=== PATIENT | female | born 1955 | race African-American/Black ===

== ENCOUNTER 2016-07-12 19:02 | Inpatient (IN) | payer OTHER ==
[~2016-07-12] VITALS: Ht 167.6 cm; Wt 48.0 kg
[~2016-07-12 19:02] MED LIST: FLAXSEED OIL; METO5SOL2 PO; TAB-TAB PO; TOPR25TA2 PO
[2016-07-12 19:04] VITALS: BP 158/75; PULSE 86; RESP 16; TEMP 98.1; O2SAT 99
[2016-07-12 19:30] VITALS: BP 145/70; PULSE 76; RESP 16; O2SAT 98
[2016-07-12] MEDS ORDERED: SODIUM CHLORID 0.9% 500 ML INJ 500 ML IV ONE (19:30)
[2016-07-12] MEDS ORDERED: ONDANSETRON HCL 4 MG/2 ML VIAL IV ONE (19:30)
--- NOTE | 2016-07-12 19:36 | PD ---
HPI Chief Complaint: Pain: Acute or Chronic Time Seen by Provider: 19:22 Travel History International Travel<30 days: No Contact w/Intl Traveler<30days: No Traveled to known affect area: No History of Present Illness HPI The patient is a 61 year old female who presents to the [facility] emergency department with a history of generalized weakness related to poor by mouth intake and difficulty eating and drinking that is been a problem for weeks , however became much worse over the last 2 days when she developed mucus in the back of her throat. She reports that it is difficult to swallow related to the mucus. She reports that when she does cough it up it is clear in color. She denies having any known fevers associated with it. She is currently on chemotherapy under the care of Dr. Lama related to metastatic breast cancer. The patient reports that she has not been able to take her pain medication today due to difficulty swallowing. She reports having pain in the right side of her neck and right shoulder related to metastasis. She reports that this is chronic since the metastasis in 2014. The patient denies having any vomiting. She denies having any diarrhea. The patient's last bowel movement was earlier today. She denies having any chest pain or chest pressure. She does report having dyspnea on exertion which is chronic since her breast cancer metastasis. The patient denies any recent new neck pain, abdominal pain, urinary symptoms , or new neurologic symptoms. [facility] Past Medical History Narrative Medical The patient's past medical history is significant for mitral valve prolapse, history of hyperlipidemia, history of metastatic breast cancer status post right mastectomy at the end of 2009 followed by chemotherapy which she did not complete because of neuropathy, history of radiation therapy. Subsequent to this, the patient did develop metastatic disease in the right supraclavicular area confirmed by biopsy in March 2015. The patient underwent additional radiation therapy and chemotherapy, however she has continued to have progressive disease. She is followed by Dr. Lama for her oncology care. Arthritis: No Asthma: No Autoimmune Disease: No Blood Disorders: No Anxiety: Yes Depression: No Heart Rhythm Problems: Yes (PROLAPSED MITRAL VALVE/ HEART MURMUR. HEART PALPITATION. ) Cancer: Yes (BREAST) Cardiovascular Problems: Yes (HEART PALPITATION ; MVP) High Cholesterol: Yes Chemotherapy: Yes Chest Pain: Yes (NEWLY ONSET.) Congestive Heart Failure: No COPD: No Cerebrovascular Accident: No Diabetes: No Diminished Hearing: No Endocrine: No GERD: No Glaucoma: No Genitourinary: No Headaches: No Hepatitis: No Hiatal Hernia: No Hypertension: No Immune Disorder: No Kidney Stones: No Medical other: Yes (VERTIGO) Musculoskeletal: Yes Neurologic: Yes Psychiatric: Yes Reproductive: No Respiratory: Yes Migraines: No Myocardial Infarction: No Radiation Therapy: No Renal Failure: No Seizures: No Sleep Apnea: No Thyroid Disease: No Ulcer: No Past Surgical History Narrative Surgical The patient's past surgical history is significant for 2, right breast mastectomy, right lumpectomy, [id number] placement, removal of benign cyst, history of a hysterectomy. Abdominal Surgery: Yes (HEPATIC CYSTECTOMY) AICD: No Appendectomy: No Arteriovenous Shunt: No Cardiac Surgery: No Section: Yes Cholecystectomy: Yes Ear Surgery: No Endocrine Surgery: No Eye Surgery: No Genitourinary Surgery: No Gynecologic Surgery: Yes ( X 2; ELIO, UTERINE ABLATION) Hysterectomy: Yes Insulin Pump: No Joint Replacement: No Mastectomy: Yes Oral Surgery: No Pacemaker: No Thoracic Surgery: Yes (right breast lumpectomy) Other Surgery: Yes Social History Alcohol Use: No Tobacco Use: No Substance Use: No Allergies-Medications (Allergen,Severity, Reaction): Coded Allergies: Adhesives (Unverified Allergy, Severe, RASH, 07/12/16) Celebrex (Verified Allergy, Severe, 07/12/16) gi upset Darvocet-N 100 (Verified Allergy, Severe, 07/12/16) n/v Zantac (Verified Allergy, Severe, itching, 07/12/16) Uncoded Allergies: SELDANE (Allergy, Severe, UNK, 02/21/10) Reported Meds & Prescriptions Reported Meds & Active Scripts Active Reglan (Metoclopramide HCl) 10 Mg/10 Ml Syrp 10 Mg PO Q6HPRN 10 Days Reported [Flaxseed Martin] Multivitamin (Multivitamins) 1 Tab Tab 1 Tab PO DAILY Toprol Xl (Metoprolol Succinate) 25 Mg Tabcr 12.5 Mg PO OTHER DAY Review of Systems General / Constitutional: No: Fever Eyes: No: Visual changes HENT: Positive: Sore Throat, Congestion, No: Headaches Cardiovascular: Positive: Dyspnea on exertion (which she reports is chronic since 2015), No: Chest Pain or Discomfort Respiratory: Positive: Cough, No: Shortness of Breath Gastrointestinal: Positive: Nausea, Loss of Appetite, No: Vomiting, Diarrhea, Abdominal Pain Genitourinary: No: Dysuria Musculoskeletal: Positive: Myalgias, Arthralgias, Pain Skin: No Rash Neurologic: No: Weakness Psychiatric: No: Depression Endocrine: No: Polydipsia Hematologic/Lymphatic: No: Easy Bruising Physical Exam Narrative General: The patient is a well-developed well-nourished female in no acute distress. Head and Neck exam: Head is normocephalic atraumatic. Eyes: Pupils are equal round and reactive to light. Nose: Midline septum with pink mucous membranes Mouth: Dentition unremarkable. Moist mucus membranes. Posterior oropharynx is slightly erythematous. No tonsillar hypertrophy. Uvula midline. Airway patent. Neck: No palpable lymphadenopathy. No nuchal rigidity. No thyromegaly. Cardiovascular: Regular rate and rhythm without murmurs, gallops, or rubs. Lungs: Decreased breath sounds on the right mid to lower lung baez, no rhonchi, no crackles audible. No accessory muscle use. No wheezes. Clear breath sounds in the left side. Abdomen: Soft, without tenderness to palpation in all 4 quadrants of the abdomen. No guarding, rebound, or rigidity. Normal bowel sounds are audible. Extremities: No clubbing or cyanosis. The patient has trace pedal edema. 2+ pulses in all 4 extremities. Back: No spinous process tenderness to palpation. No costovertebral angle tenderness to palpation. Neurologic Exam: Grossly nonfocal. Skin Exam: No rash noted. Intact skin that is warm and dry. Data Data Last Documented VS Vital Signs Date Time Temp Pulse Resp B/P Pulse Ox O2 Delivery O2 Flow Rate FiO2 07/12/16 19:30 76 16 145/70 98 07/12/16 19:04 98.1 Orders Complete Blood Count With Diff (07/12/16 19:26) Comprehensive Metabolic Panel (07/12/16 19:26) Creatine Kinase (Cpk) (07/12/16 19:26) Ckmb (Isoenzyme) Profile (07/12/16 19:26) Troponin I (07/12/16 19:26) B-Type Natriuretic Peptide (07/12/16 19:26) Prothrombin Time / Inr (Pt) (07/12/16 19:26) Act Partial Throm Time (Ptt) (07/12/16 19:26) C-Reactive Protein (Crp) (07/12/16 19:26) Lipase (07/12/16:) Urinalysis - C+S If Indicated (07/12/16 19:26) Magnesium (Mg) (07/12/16 19:26) Chest, Single Ap (07/12/16 19:26) Iv Access Insert/Monitor (07/12/16:26) Ecg Monitoring (07/12/16 19:26) Oximetry (07/12/16 19:26) Ondansetron Inj (Zofran Inj) (07/12/16 19:30) Sodium Chlorid 0.9% 500 Ml Inj (Ns 500 M (07/12/16 19:30) Electrocardiogram (07/12/16 19:26) Morphine Inj (Morphine Inj) (07/12/16 20:00) CKMB (07/12/16 19:40) CKMB% (07/12/16 19:40) Lactic Acid Sepsis Protocol (07/12/16 20:18) Blood Culture (07/12/16 20:18) Cefepime Inj (Maxipime Inj) (07/12/16 20:23) Azithromycin Inj (Zithromax Inj) (07/12/16 20:23) Admit Order (Ed Use Only) (07/12/16 20:57) Labs Laboratory Tests Test 07/12/16 07/12/16 19:40 20:10 White Blood Count 2.7 TH/MM3 Red Blood Count 4.00 MIL/MM3 Hemoglobin 11.6 GM/DL Hematocrit 34.8 % Mean Corpuscular Volume 87.0 FL Mean Corpuscular Hemoglobin 29.1 PG Mean Corpuscular Hemoglobin 33.5 % Concent Red Cell Distribution Width 17.2 % Platelet Count 249 TH/MM3 Mean Platelet Volume 7.5 FL Neutrophils (%) (Auto) 69.7 % Lymphocytes (%) (Auto) 17.5 % Monocytes (%) (Auto) 10.9 % Eosinophils (%) (Auto) 0.8 % Basophils (%) (Auto) 1.1 % Neutrophils # (Auto) 1.9 TH/MM3 Lymphocytes # (Auto) 0.5 TH/MM3 Monocytes # (Auto) 0.3 TH/MM3 Eosinophils # (Auto) 0.0 TH/MM3 Basophils # (Auto) 0.0 TH/MM3 CBC Comment DIFF FINAL Differential Comment Prothrombin Time 11.4 SEC Prothromb Time International 1.0 RATIO Ratio Activated Partial 25.9 SEC Thromboplast Time Sodium Level 136 MEQ/L Potassium Level 3.7 MEQ/L Chloride Level 99 MEQ/L Carbon Dioxide Level 26.1 MEQ/L Anion Gap 11 MEQ/L Blood Urea Nitrogen 12 MG/DL Creatinine 0.75 MG/DL Estimat Glomerular Filtration 95 ML/MIN Rate Random Glucose 76 MG/DL Calcium Level 9.3 MG/DL Magnesium Level 2.0 MG/DL Total Bilirubin 0.4 MG/DL Aspartate Amino Transf 23 U/L (AST/SGOT) Alanine Aminotransferase 18 U/L (ALT/SGPT) Alkaline Phosphatase 82 U/L Total Creatine Kinase 146 U/L Creatine Kinase MB 1.0 NG/ML Troponin I LESS THAN 0.02 NG/ML C-Reactive Protein 0.50 MG/DL B-Type Natriuretic Peptide 20 PG/ML Total Protein 7.7 GM/DL Albumin 3.6 GM/DL Lipase 64 U/L Urine Color LIGHT-YELLOW Urine Turbidity CLEAR Urine pH 6.5 Urine Specific [place] 1.010 Urine Protein NEG mg/dL Urine Glucose (UA) NEG mg/dL Urine Ketones 10 mg/dL Urine Occult Blood NEG Urine Nitrite NEG Urine Bilirubin NEG Urine Urobilinogen LESS THAN 2.0 MG/DL Urine Leukocyte Esterase NEG Urine WBC 1 /hpf Urine Squamous Epithelial 2 /hpf Cells Urine Mucus FEW /lpf Microscopic Urinalysis Comment CULT NOT INDICATED MDM Medical Decision Making Medical Screen Exam Complete: Yes Emergency Medical Condition: Yes Medical Record Reviewed: Yes Differential Diagnosis Dehydration, versus electrolyte abnormality, versus pneumonia, versus sepsis, versus upper respiratory infection, versus postnasal drip from sinusitis Narrative Course During the course of the patients emergency department visit, the patients history, examination, and differential diagnosis were reviewed with the patient. The patient had IV access obtained and blood work sent for analysis. The patient was placed on a teletypesetter monitor with oximetry and blood pressure monitoring. An EKG was done on arrival. The patient's EKG shows a sinus rhythm heart rate of 76, QRS duration of 101 ms, no acute ST segment elevation is noted. T waves are inverted in V1. The patient was initially provided normal saline a 500 mL IV fluid bolus, Zofran 4 mg IV, morphine 4 mg IV. The patients laboratory studies were reviewed and remarkable for white count 2.7, hemoglobin 11.6, platelets 249 with 10.9 monocytes, CMP is unremarkable. CPK is 146, troponin I is less than 0.02, C-reactive protein 0.50, BNP 20, lipase 64. PT 11.4, PTT 25.9 Radiology studies were reviewed and remarkable for a chest x-ray that shows opacification of the lower two thirds of the right chest likely related to a large pleural effusion some degree of right lower lung atelectasis or consolidation also needs to be considered. The patient had a lactic acid added to her blood work along with blood cultures 2. The patient was started on cefepime and azithromycin for antibiotic coverage for possible pneumonia. The patient will be admitted to the hospital for continued evaluation and treatment , consideration of a thoracentesis. The patients results were discussed with the patient, including the plan of care. I explained that further testing and/ or monitoring is indicated based on the patients history, examination, and/ or laboratory findings. Therefore, I recommended admission for additional evaluation. The patient expressed understanding and was agreeable with this plan. The patient was admitted to the hospital in stable condition and sent to a [facility]. Physician Communication Physician Communication The patient's case will be discussed with Dr. Lucero regarding admission. The patient's case was discussed with her. She did agree to admit the patient for further evaluation and treatment at this time. Diagnosis Primary Impression: Pleural effusion on right Additional Impressions: Congestion of upper airway Dehydration Admitting Information Admitting Physician Requests: Observation Milka Renteria MD Jul 12, 2016 19:36
[2016-07-12 19:47] LABS: AUTOMATED NEUTROPHIL # 1.9 TH/MM3 (1.8-7.7); BASOPHIL % 1.1 % (0.0-2.0); EOSINOPHIL % 0.8 % (0.0-4.0); HEMATOCRIT 34.8 % (35.0-46.0); HEMO FLAGS DIFF FINAL; LYMPH % 17.5 % (9.0-44.0); LYMPHOCYTE # 0.5 TH/MM3 (1.0-4.8); MEAN CORPUSCULAR HEMOGLOBIN 29.1 PG (27.0-34.0); MEAN CORPUSCULAR HGB CONC 33.5 % (32.0-36.0); MONO % 10.9 % (0.0-8.0); NEUT % 69.7 % (16.0-70.0); PLATELET COUNT 249 TH/MM3 (150-450); RED CELL DISTRIBUTION WIDTH 17.2 % (11.6-17.2); WHITE BLOOD COUNT 2.7 TH/MM3 (4.0-11.0)
--- NOTE | 2016-07-12 19:50 | RADRPT ---
EXAM DATE/TIME: 07/12/2016 19:37 [facility] COMPARISON: No previous studies available for comparison. INDICATIONS : Cough MEDICAL HISTORY : Carcinoma, breast. SURGICAL HISTORY : Mastectomy, right. ENCOUNTER: Initial ACUITY: 4 - 6 days PAIN SCORE: 0/10 LOCATION: Bilateral chest FINDINGS: There is opacification of the lower two-thirds of the right chest likely related to a large effusion. The left lung is clear. There is a CT compatible [id number] in place from the left subclavian a pproach. The heart size is normal. Clips are seen over the right axillary region. CONCLUSION: Opacification of the lower two-thirds of the right chest likely related to a large effusion. Some de gree of right lower lung atelectasis or consolidation also needs to be considered. Jose E Nolan MD on July 12, 2016 at 19:42 Board Certified Radiologist. This report was verified electronically.
[2016-07-12] MEDS ORDERED: MORPHINE SULFATE 4 MG/ML INJ IV PUSH ONE (20:00)
[2016-07-12 20:01] LABS: APTT (PATIENT) 25.9 SEC (24.3-30.1); PROTHROMBIN TIME - PATIENT 11.4 SEC (9.8-11.6)
[2016-07-12 20:10] LABS: ANION GAP 11 MEQ/L (5-15); AST (GOT) 23 U/L (15-37); BICARBONATE 26.1 MEQ/L (21.0-32.0); BLOOD UREA NITROGEN 12 MG/DL (7-18); CHLORIDE 99 MEQ/L (98-107); GLOMERULAR FILTRATION RATE 95 ML/MIN (>89); POTASSIUM 3.7 MEQ/L (3.5-5.1); SODIUM (NA) 136 MEQ/L (136-145)
[2016-07-12 20:13] LABS: ALKALINE PHOSPHATASE 82 U/L (45-117); ALT (GPT) 18 U/L (10-53); CREATINE KINASE 146 U/L (26-192); TOTAL BILIRUBIN ADULT 0.4 MG/DL (0.2-1.0)
[2016-07-12] MEDS ORDERED: AZITHROMYCIN INJ 500 MG in SODIUM CHLOR 0.9% 250 ML INJ 250 ML IV STA (20:23)
[2016-07-12] MEDS ORDERED: CEFEPIME INJ 2,000 MG in SODIUM CHLORIDE 0.9% INJ 100 ML IV STA (20:23)
[2016-07-12 20:27] LABS: BLOOD, URINE NEG (NEG); COMMENT (UR) CULT NOT INDICATED; CULTURE IF INDICATED CULT NOT INDICATED; GLUCOSE,URINE NEG (NEG); KETONE, URINE 10 mg/dL (NEG); MUCUS URINE FEW /lpf (OCC); NITRITE,URINE NEG (NEG); PH, URINE 6.5 (5.0-8.5); SQUAMOUS EPITHELIAL CELL URINE 2 /hpf (0-5); URINE COLOR LIGHT-YELLOW (YELLW/STRAW)
[2016-07-12] MEDS: SODIUM CHLORIDE 0.9% FLUSH 5 ML FLUSH FLUSH SCH (21:00)
[2016-07-12] MEDS ORDERED: ONDANSETRON HCL 4 MG/2 ML VIAL IVP PRN (21:00)
[2016-07-12] MEDS ORDERED: ACETAMINOPHEN/HYDROcodone 325 MG/5 MG TAB PO PRN (21:00)
[2016-07-12] MEDS ORDERED: ACETAMINOPHEN 325 MG TAB PO PRN (21:00)
[2016-07-12] MEDS ORDERED: BISACODYL 10 MG SUPP PR PRN (21:00)
--- NOTE | 2016-07-12 21:06 | HHI.HP ---
HPI Service [facility] Primary Care Physician Salvador Cook MD Admission Diagnosis Large right pleural effusion, congestion, on chemotherapy Diagnoses: (1) PNA (pneumonia) Diagnosis: Principal (2) Pleural effusion, right Diagnosis: Principal (3) Breast CA Diagnosis: Principal Travel History International Travel<30 Days: No Contact w/Intl Traveler <30 Da: No Traveled to Known Affected Are: No History of Present Illness This is a 61-year-old female with a PMH of Metastatic Breast CA, HTN and Anxiety presented to the ER with complaints of generalized weakness, decreased PO intake and difficulty swallowing. States symptoms have been ongoing for 2- 3wks however have been progressively worse in the last 2-3 days. Denies fever, chills, nausea or vomiting. On arrival, BP 158/75, HR 86, O2 sat 99% on RA, Afebrile. WBC 2.7, at baseline. Chemistry unremarkable. UA negative. CXR with large right pleural effusion and possible underlying consolidation. S/p Rocephin/Zithro in ER. Currently following w/ Dr. Lama. Review of Systems Other ROS: 14 point review of systems otherwise negative. Past Family Social History Past Medical History PMH: Metastatic Breast CA, HTN and Anxiety Past Surgical History PAST SURGICAL HISTORY: , Right Breast Mastectomy, Right Lumpectomy, [id number], Hysterectomy Allergies: Coded Allergies: Adhesives (Unverified Allergy, Severe, RASH, 07/12/16) Celebrex (Verified Allergy, Severe, 07/12/16) gi upset Darvocet-N 100 (Verified Allergy, Severe, 07/12/16) n/v Zantac (Verified Allergy, Severe, itching, 07/12/16) Uncoded Allergies: SELDANE (Allergy, Severe, UNK, 02/21/10) Family History PAST FAMILY HISTORY: Reviewed. No h/o DM or CAD Social History PAST SOCIAL HISTORY: Negative for alcohol, tobacco or drugs. Physical Exam Vital Signs Vital Signs Date Time Temp Pulse Resp B/P Pulse Ox O2 Delivery O2 Flow Rate FiO2 07/12/16 19:30 76 16 145/70 98 07/12/16 19:24 79 15 07/12/16 19:04 98.1 86 16 158/75 99 Physical Exam PE: GENERAL: Middle-aged female in no acute distress. HEENT: PERRLA, EOMI. No scleral icterus or conjunctival pallor. No lid lag or facial droop. CARDIOVASCULAR: Regular rate and rhythm. No obvious murmurs to auscultation. No chest tenderness to palpation. RESPIRATORY: No obvious rhonchi or wheezing. Clear to auscultation. Decreased breath sounds on right. GASTROINTESTINAL: Abdomen soft, non-tender, nondistended. BS normal. MUSCULOSKELETAL: Extremities without clubbing, cyanosis, or edema. No obvious deformities. NEUROLOGICAL: Awake, alert and oriented x4. No focal neurologic deficits. Moving both upper and lower extremities spontaneously. Laboratory Laboratory Tests Test 07/12/16 07/12/16 19:40 20:10 White Blood Count 2.7 Red Blood Count 4.00 Hemoglobin 11.6 Hematocrit 34.8 Mean Corpuscular Volume 87.0 Mean Corpuscular Hemoglobin 29.1 Mean Corpuscular Hemoglobin 33.5 Concent Red Cell Distribution Width 17.2 Platelet Count 249 Mean Platelet Volume 7.5 Neutrophils (%) (Auto) 69.7 Lymphocytes (%) (Auto) 17.5 Monocytes (%) (Auto) 10.9 Eosinophils (%) (Auto) 0.8 Basophils (%) (Auto) 1.1 Neutrophils # (Auto) 1.9 Lymphocytes # (Auto) 0.5 Monocytes # (Auto) 0.3 Eosinophils # (Auto) 0.0 Basophils # (Auto) 0.0 CBC Comment DIFF FINAL Differential Comment Prothrombin Time 11.4 Prothromb Time International 1.0 Ratio Activated Partial 25.9 Thromboplast Time Sodium Level 136 Potassium Level 3.7 Chloride Level 99 Carbon Dioxide Level 26.1 Anion Gap 11 Blood Urea Nitrogen 12 Creatinine 0.75 Estimat Glomerular Filtration 95 Rate Random Glucose 76 Calcium Level 9.3 Magnesium Level 2.0 Total Bilirubin 0.4 Aspartate Amino Transf 23 (AST/SGOT) Alanine Aminotransferase 18 (ALT/SGPT) Alkaline Phosphatase 82 Total Creatine Kinase 146 Creatine Kinase MB 1.0 Troponin I LESS THAN 0.02 C-Reactive Protein 0.50 B-Type Natriuretic Peptide 20 Total Protein 7.7 Albumin 3.6 Lipase 64 Urine Color LIGHT-YELLOW Urine Turbidity CLEAR Urine pH 6.5 Urine Specific [place] 1.010 Urine Protein NEG Urine Glucose (UA) NEG Urine Ketones 10 Urine Occult Blood NEG Urine Nitrite NEG Urine Bilirubin NEG Urine Urobilinogen LESS THAN 2.0 Urine Leukocyte Esterase NEG Urine WBC 1 Urine Squamous Epithelial 2 Cells Urine Mucus FEW Microscopic Urinalysis Comment CULT NOT INDICATED Date/Time Procedure Status Source Growth 07/12/16 20:55 Aerobic Blood Culture Received Blood Peripheral Pending 07/12/16 20:55 Anaerobic Blood Culture Received Blood Peripheral Pending Result Diagram: 07/12/16193907/12/161939 Assessment and Plan Problem List: (1) PNA (pneumonia) ICD Code: J18.9 Status: Acute (2) Pleural effusion, right ICD Code: J90 Status: Acute (3) Breast CA ICD Code: C50.919 Status: Acute Assessment and Plan A/P: 1. PNA: CXR w/ large right effusion and possible underlying consolidation, images reviewed by me. WBC 13, afebrile. S/p Rocephin/Zithro in ER. Will continue w/ IV Abx for possible PNA in light of immunocompromised state. DuoNeb prn. 2. Right Pleural Effusion: CXR w/ large right-sided pleural effusion, images reviewed by me. No respiratory distress, O2 sat 98-100%. Will consult IR for Thoracentesis. ? malignant effusion, check cytology, gram stain, cell count, LDH.. 3. Breast CA: Metastatic. S/p Mastectomy, Chemo/Radiation w/ recurrence and metastatic disease in 2014. Follows w/ Dr. Lama. Will consult for further recommendations. 4. DVT Prophylaxis: SCD/Teds. 5. Social work for d/c planning as needed. 6. Case discussed w/ ER physician at length. Roxi Lucero MD Jul 12, 2016 21:06
[2016-07-12] MEDS ORDERED: METO25TA6 PO (23:57)
[2016-07-12] MEDS ORDERED: MORP1TAB25 PO (23:57)
[2016-07-12] MEDS ORDERED: ASPI81CH CHEW (23:57)
[2016-07-13] VITALS (13 sets, daily range): BP systolic 102–150; BP diastolic 55–77; PULSE 72–90; RESP 16–22; TEMP 96.6–98.6; O2SAT 94–100
[2016-07-13] MEDS: HYDROmorphone HCL PF 1 MG/ML VIAL IV PRN ×4 (00:30→20:21)
[2016-07-13 05:15] LABS: BASOPHIL % 0.9 % (0.0-2.0); EOSINOPHIL % 0.7 % (0.0-4.0); HEMO FLAGS DIFF FINAL; LYMPH % 19.4 % (9.0-44.0); LYMPHOCYTE # 0.6 TH/MM3 (1.0-4.8); MEAN CELL VOLUME 88.7 FL (80.0-100.0); MEAN CORPUSCULAR HEMOGLOBIN 29.2 PG (27.0-34.0); MEAN CORPUSCULAR HGB CONC 32.9 % (32.0-36.0); MONO % 12.2 % (0.0-8.0); NEUT % 66.8 % (16.0-70.0); PLATELET COUNT 231 TH/MM3 (150-450); RED CELL DISTRIBUTION WIDTH 16.6 % (11.6-17.2)
[2016-07-13 05:55] LABS: ALKALINE PHOSPHATASE 76 U/L (45-117); ALT (GPT) 17 U/L (10-53); ANION GAP 11 MEQ/L (5-15); AST (GOT) 21 U/L (15-37); BICARBONATE 24.7 MEQ/L (21.0-32.0); BLOOD UREA NITROGEN 13 MG/DL (7-18); CHLORIDE 102 MEQ/L (98-107); GLOMERULAR FILTRATION RATE 110 ML/MIN (>89); LDH SERUM 185 U/L (84-246); POTASSIUM 3.9 MEQ/L (3.5-5.1); SODIUM (NA) 138 MEQ/L (136-145); TOTAL BILIRUBIN ADULT 0.4 MG/DL (0.2-1.0)
[2016-07-13] MEDS ORDERED: DEXTROSE 50% IN WATER 50 ML VIAL(D50) IV PUSH PRN (06:15)
[2016-07-13] MEDS ORDERED: GLUCAGON 1 MG/ML VIAL OTHER PRN (06:15)
[2016-07-13] MEDS ORDERED: DEXTROSE 50% IN WATER 50 ML VIAL(D50) IV PUSH ONE (06:15)
[2016-07-13] MEDS: SODIUM CHLORIDE 0.9% FLUSH 5 ML FLUSH FLUSH SCH ×2 (09:45→20:09)
[2016-07-13] MEDS: guaiFENesin SOLUTION 200 MG/10 ML CUP PO PRN (11:34)
--- NOTE | 2016-07-13 12:05 | HHI.PR ---
Subjective Remarks Follow-up right pleural effusion 07/13/16-patient seen and examined, complained of some shortness of breath, nonproductive cough. Currently afebrile. Objective Vitals Vital Signs Date Time Temp Pulse Resp B/P Pulse Ox O2 Delivery O2 Flow Rate FiO2 07/13/16 10:55 18 07/13/16 07:32 98.6 82 22 144/74 96 07/13/16 05:40 97.5 83 20 135/67 97 07/13/16 00:42 98.6 78 18 119/67 98 07/12/16 19:30 76 16 145/70 98 07/12/16 19:24 79 15 07/12/16 19:04 98.1 86 16 158/75 99 Result Diagram: 07/13/[id number] Imaging Last Impressions Chest X-Ray 07/12/161925 Signed Impressions: Service Date/Time: Tuesday, July 12, 2016 19:37 - CONCLUSION: Opacification of the lower two-thirds of the right chest likely related to a large effusion. Some degree of right lower lung atelectasis or consolidation also needs to be considered. Jose E Nolan MD Objective Remarks GENERAL: NAD SKIN: Warm and dry. HEAD: Normocephalic. EYES: No scleral icterus. No injection or drainage. NECK: Supple, trachea midline. No JVD or lymphadenopathy. CARDIOVASCULAR: Regular rate and rhythm without murmurs, gallops, or rubs. RESPIRATORY: Breath sounds decreased R>L . No accessory muscle use. GASTROINTESTINAL: Abdomen soft, non-tender, nondistended. MUSCULOSKELETAL: No cyanosis, or edema. BACK: Nontender without obvious deformity. No CVA tenderness. A/P Problem List: (1) PNA (pneumonia) ICD Code: J18.9 Status: Acute (2) Pleural effusion, right ICD Code: J90 Status: Acute (3) Breast CA ICD Code: C50.919 Status: Acute Assessment and Plan 61-year-old female with 1. PNA: CXR w/ large right effusion and possible underlying consolidation. S/ p Rocephin/Zithro in ER. continue w/ IV Abx for possible PNA in light of immunocompromised state. DuoNeb prn. Sputum and blood culture pending 2. Right Pleural Effusion: CXR w/ large right-sided pleural effusion. IR assaulted for diagnostic and therapeutic ultrasound-guided thoracentesis. 3. Breast CA: Metastatic. S/p Mastectomy, Chemo/Radiation w/ recurrence and metastatic disease in 2015. Follows w/ Dr. Lama who has been consulted. 4. Hypoglycemia: Treatment per hypoglycemia protocol 5. Hypertension: Currently normotensive, resume Lopressor 12.5 mg daily on with holding parameters. Vasotec when necessary 6. DVT Prophylaxis: SCD/Teds. Sukhwinder Morris MD Jul 13, 2016 12:04
[2016-07-13] MEDS ORDERED: PILL SPLITTER OTHER PRN (12:15)
[2016-07-13] MEDS ORDERED: ENALAPRILAT 1.25 MG/ML VIAL IV PUSH PRN (12:15)
--- NOTE | 2016-07-13 17:15 | RADRPT ---
EXAM DATE/TIME: 07/13/2016 17:01 [facility] COMPARISON: No previous studies available for comparison. INDICATIONS : Thoracentesis right side. MEDICAL HISTORY : Cancer right breast SURGICAL HISTORY : Right mastectomy ENCOUNTER: Initial ACUITY: 1 day PAIN SCORE: 7/10 LOCATION: Right upper chest FINDINGS: Following thoracentesis there is a pneumothorax on the right probably from noncompliant lung. The left lung is clear. [id number] is in good position. Heart and pulmonary vascularity are normal. CONCLUSION: Pneumothorax probably from noncompliant lung. Juan Diego Shipman MD FACR on July 13, 2016 at 17:10 Board Certified Radiologist. This report was verified electronically.
--- NOTE | 2016-07-13 17:16 | HHI.PR ---
Addendum to Inpatient Note Addendum Reason: Additional Documentation Additional Information Case discussed with Radiology as of right now and patient is s/p Right lung thoracentesis However a Right Chest tube has to be placed. Will change admission to inpatient and transfer patient to Sukhwinder Morris MD Jul 13, 2016 17:16
--- NOTE | 2016-07-13 17:18 | EKG ---
Date Performed: 07/12/2016 Time Performed: 19:38:50 PTAGE: 61 years EKG: Sinus rhythm POSSIBLE RIGHT VENTRICULAR CONDUCTION DELAY Compared to prior tracing no significant change BORDERLI NE ECG PREVIOUS TRACING : 05/13/2010 12.54 DOCTOR: Sher Iqbal Interpretating Date/Time 07/13/2016 17:16:46
--- NOTE | 2016-07-13 17:30 | RADRPT ---
EXAM DATE/TIME: 07/13/2016 15:45 [facility] COMPARISON: No previous studies available for comparison. INDICATIONS : Pleural effusion. MEDICAL HISTORY : Hypercholesterolemia. Pleural effusion. Right breast cancer. Mitral valve prolaspe. Heart murmur. H eart palpation. Vertigo. SURGICAL HISTORY : section. Hysterectomy. Cholecystectomy. Right breast lumpectomy. Hepatic cystectomy. Uterine ablation. ENCOUNTER: Initial ACUITY: 1 day PAIN SCORE: 8/10 LOCATION: Right chest FLUID: Total volume of 1600 cc of odell fluid was removed. Fluid was sent to lab for ordered studies. TECHNIQUE: 1. Ultrasound guidance for thoracentesis. 2. Thoracentesis. The risks, benefits, and alternatives to ultrasound guided thoracentesis were explained to the patien t in lay simple terms, including the risk of bleeding and infection. Written and verbal informed con sent was obtained. Appropriate area for thoracentesis was marked under ultrasound guidance with the patient in the uprig ht position. Overlying skin was prepped and draped in the usual sterile fashion and with local anest hetic, a dermatotomy was made with an 11 blade scalpel. A 6 [place] thoracentesis catheter was placed in the pleural space and fluid was removed. Catheter was then removed and a sterile dressing applie d. There were no immediate complications. The patient tolerated the procedure well and the left the ultrasound suite in stable condition. Chest radiograph is to be obtained. CONCLUSION: Uncomplicated ultrasound guided thoracentesis. Juan Diego Shipman MD FACR on July 13, 2016 at 17:28 Board Certified Radiologist. This report was verified electronically.
[2016-07-13] MEDS ORDERED: fentaNYL CITRATE 250 MCG/5 ML AMP ONE (17:54)
--- NOTE | 2016-07-13 18:41 | PD.RAD ---
Post Procedure Progress Note Pre Procedure Diagnosis: (1) Pleural effusion on right (2) Pneumothorax Post Procedure Diagnosis: (1) Pleural effusion on right (2) Pneumothorax Procedure Date: Jul 13, 2016 Supervising Radiologist: Orlando Shipman Anesthesia: Local, Analgesia Plan of Activity Patient to Unit: Nursing Unit Patient Condition: Fair Additional Comments: Right chest tube placed without difficulty Tube in good position with reinflation of the right lung See PACS Report for procedural detail/treatment Orlando Shipman MD Jul 13, 2016 18:41
[2016-07-13 18:44] LABS: TOTAL PROTEIN,PLEURAL FLUID 4.8 GM/DL
[2016-07-13 19:17] LABS: PLEURAL FLUID LYMPHS 74 %
[2016-07-13] MEDS: AZITHROMYCIN INJ 500 MG in SODIUM CHLOR 0.9% 250 ML INJ 250 ML IV SCH (20:21)
[2016-07-13] MEDS: cefTRIAXone INJ 1,000 MG in SODIUM CHLORIDE 0.9% INJ 100 ML IV SCH (20:23)
--- NOTE | 2016-07-13 20:30 | RADRPT ---
EXAM DATE/TIME: 07/13/2016 19:01 [facility] COMPARISON: CHEST EXPIRATION ONLY, July 13, 2016, 17:01. INDICATIONS : Right chest tube placement. MEDICAL HISTORY : cancer right breast SURGICAL HISTORY : rt mastectomy ENCOUNTER: Initial ACUITY: 1 day PAIN SCORE: 8/10 LOCATION: Right upper chest FINDINGS: Examination reveals placement of right chest tube. This examination was performed before suction. The re is airspace disease in the right lung base. Small right effusion. Left lung is clear. Uazeie-m-Cvw t tip in superior vena cava. Surgical clips in right axillary region. CONCLUSION: 1. Placement of right chest tube with chest radiograph performed before suctioned applied. Right pneu mothorax similar in size to earlier exam. Abelino Nova MD on July 13, 2016 at 20:24 Board Certified Radiologist. This report was verified electronically.
[2016-07-13] MEDS: DEXTROSE 5% IN WATE 1000ML INJ 1,000 ML IV SCH (22:28)
[2016-07-13] MEDS ORDERED: HYDROmorphone HCL PF 1 MG/ML VIAL IV PUSH ONE (22:30)
[2016-07-14] VITALS (7 sets, daily range): BP systolic 110–131; BP diastolic 63–76; PULSE 77–90; RESP 16–22; TEMP 97.1–98.8; O2SAT 100
[2016-07-14] MEDS: HYDROmorphone HCL PF 1 MG/ML VIAL IV PRN ×4 (00:56→22:05)
[2016-07-14] MEDS: guaiFENesin SOLUTION 200 MG/10 ML CUP PO PRN (01:08)
[2016-07-14] MEDS: RESP: ALBUTEROL 2.5 MG/IPRATROPIUM 0.5 MG NEB (PRN) NEB (05:11)
--- NOTE | 2016-07-14 06:33 | RADRPT ---
EXAM DATE/TIME: 07/14/2016 04:53 [facility] COMPARISON: CHEST EXPIRATION ONLY, July 13, 2016, 19:01. INDICATIONS : Short of breath, evaluate right side pneumothorax and chest tube MEDICAL HISTORY : Carcinoma, breast. SURGICAL HISTORY : Mastectomy, right. thoracentesis right side ENCOUNTER: Subsequent ACUITY: 2 days PAIN SCORE: 8/10 LOCATION: Right chest FINDINGS: The right chest remains in place. There has been improvement with the right pneumothorax. There is no w 6 mm of separation at the apex. This is improved compared to the prior examination. The left lung r emains clear and well-aerated. There is a persistent infiltrate in the right lung base. The heart siz e is stable. CONCLUSION: Improving small right apical pneumothorax with 6 mm of separation on today's exam. Eugene Stinson MD on July 14, 2016 at 6:30 Board Certified Radiologist. This report was verified electronically.
[2016-07-14] MEDS: DEXTROSE 5% IN WATE 1000ML INJ 1,000 ML IV SCH ×2 (08:15→18:15)
[2016-07-14] MEDS: SODIUM CHLORIDE 0.9% FLUSH 5 ML FLUSH FLUSH SCH ×2 (09:00→20:04)
[2016-07-14] MEDS: METOPROLOL SUCCINATE 25 MG EXTENDED RELEASE TAB PO SCH (09:37)
--- NOTE | 2016-07-14 09:47 | HHI.PR ---
Subjective Remarks Follow-up right pleural effusion 07/13/16-patient seen and examined, complained of some shortness of breath, nonproductive cough. Currently afebrile. 07/14/16-patient seen and examined; she had Rocephin tissues of the right lung don't yesterday however complicated by right lung pneumothorax for which chest tube was placed. Currently complain of increased mucus production along with flame. Positive for shortness of breath however denies any chest pain. currently afebrile Objective Vitals Vital Signs Date Time Temp Pulse Resp B/P Pulse Ox O2 Delivery O2 Flow Rate FiO2 07/14/16 08:00 97.1 78 20 126/76 100 07/14/16 06:30 98.2 84 18 123/73 100 07/14/16 00:00 98.2 86 16 114/67 100 07/13/16 21:55 97.2 83 16 118/71 100 07/13/16 20:25 97.2 73 16 102/55 100 07/13/16 19:55 96.7 78 16 120/69 100 07/13/16 19:30 97.4 81 16 123/73 100 07/13/16 17:56 98.2 81 20 117/58 100 07/13/16 17:05 72 18 125/77 96 07/13/16 16:50 72 18 133/66 96 07/13/16 16:17 98.6 74 16 150/74 99 07/13/16 15:54 96.6 90 18 149/68 94 07/13/16 12:09 98.4 75 20 131/68 100 07/13/16 10:55 18 I/O 07/13/16 07/13/16 07/13/16 07/14/16 07/14/16 07/14/16 07:00 15:00 23:00 07:00 15:00 23:00 Intake Total 900 ml Output Total 220 ml 100 ml Balance -220 ml 800 ml Intake IV Total 900 ml Output Chest Tube Drainage Total 220 ml 100 ml # Voids 4 # Bowel Movements 1 Result Diagram: 07/13/16 0455 07/13/16 0455 Imaging Last Impressions Chest X-Ray 07/14/16 0000 Signed Impressions: Service Date/Time: Thursday, July 14, 2016 04:53 - CONCLUSION: Improving small right apical pneumothorax with 6 mm of separation on today's exam. Eugene Stinson MD Thoracentesis Ultrasound 07/13/16 0000 Signed Impressions: Service Date/Time: Wednesday, July 13, 2016 15:45 - CONCLUSION: Uncomplicated ultrasound guided thoracentesis. Juan Diego Shipman MD FACR Objective Remarks GENERAL: NAD SKIN: Warm and dry. HEAD: Normocephalic. EYES: No scleral icterus. No injection or drainage. NECK: Supple, trachea midline. No JVD or lymphadenopathy. CARDIOVASCULAR: Regular rate and rhythm without murmurs, gallops, or rubs. RESPIRATORY: Breath sounds decreased R>L . No accessory muscle use. Right Chest tube in place GASTROINTESTINAL: Abdomen soft, non-tender, nondistended. MUSCULOSKELETAL: No cyanosis, or edema. BACK: Nontender without obvious deformity. No CVA tenderness. Procedures Ultrasound-guided thoracentesis 07/13/16 Right chest tube placed 01/09/17 A/P Problem List: (1) PNA (pneumonia) ICD Code: J18.9 Status: Acute (2) Pleural effusion, right ICD Code: J90 Status: Acute (3) Breast CA ICD Code: C50.919 Status: Acute (4) Pneumothorax, right ICD Code: J93.9 Status: Acute Assessment and Plan 61-year-old female with 1. PNA: CXR w/ large right effusion and possible underlying consolidation. S/ p Rocephin/Zithro in ER. continue w/ IV Abx for possible PNA in light of immunocompromised state. DuoNeb prn. Sputum and blood culture pending 2. Right Pleural Effusion: CXR w/ large right-sided pleural effusion. Status post diagnostic and therapeutic ultrasound-guided thoracentesis 07/13/16 pending pleural culture report 3. Right lung pneumothorax: Post complication from right lung thoracentesis, status post right chest tube placed 07/13/16. Start DuoNeb scheduled and when necessary. Maintain oxygen saturation above 92%. Incentive spirometry at the bedside. Management by interventional radiology 4. Breast CA: Metastatic. S/p Mastectomy, Chemo/Radiation w/ recurrence and metastatic disease in 2014. Follows w/ Dr. Lama who has been consulted. 5. Hypoglycemia: Treatment per hypoglycemia protocol 6. Hypertension: Currently normotensive, on Lopressor 12.5 mg daily with holding parameters. Vasotec when necessary 7. DVT Prophylaxis: SCD/Teds. Sukhwinder Morris MD Jul 14, 2016 09:47
[2016-07-14] MEDS: RESP: ALBUTEROL 2.5 MG/IPRATROPIUM 0.5 MG NEB (SCH) NEB ×2 (11:05→20:54)
[2016-07-14 11:48] LABS: BICARBONATE 31.3 MEQ/L (21.0-32.0); POTASSIUM 3.7 MEQ/L (3.5-5.1)
[2016-07-14] MEDS: AZITHROMYCIN INJ 500 MG in SODIUM CHLOR 0.9% 250 ML INJ 250 ML IV SCH (20:07)
[2016-07-14] MEDS: cefTRIAXone INJ 1,000 MG in SODIUM CHLORIDE 0.9% INJ 100 ML IV SCH (20:07)
--- NOTE | 2016-07-14 21:37 | MB ---
cc: JOSUE FITZGERALD M.D. DATE OF CONSULTATION: 07/14/2016 REASON FOR CONSULTATION: 1. Stage IV breast cancer. 2. Right pleural effusion. 3. Inability to swallow due to phlegm in the back of the throat. PATIENT PROFILE: The patient is a 61 year-old female who is . She is a retired registered nurse. She has never smoked. She does not drink. She was born in [place], [place]. She has one son and one daughter. She lives in her own home. HISTORY OF PRESENT ILLNESS The patient's history dates back to 2009 when she was found to have a carcinoma of the right breast with four positive lymph nodes, pathologic stage T1b N1 M0. She underwent a right lumpectomy and sentinel lymph node biopsy and a subsequent right mastectomy. She received chemotherapy with Cytoxan, Adriamycin followed by Taxol. 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 She received postoperative radiation. In February of 2015, she was found to have local recurrence with involvement of the neck, supraclavicular area, sternum, right first rib. The tumor was positive for ER and MT receptors. She has had various hormonal therapies. She recently has had progressive disease after receiving weekly Taxol and the plan was to treat her with gemcitabine. Her current admission was prompted by increasing phlegm in the back of the throat to the point that she was unable to take pain medications and barely able to eat or drink. She went to the emergency room and was found to have a large right pleural effusion. An ultrasound guided thoracentesis was performed on 07/13/2016, removing 1600 cc of fluid, pathology is pending. She has a small pneumothorax and now has a chest tube. In spite of having re-expansion of the lung, she still cannot swallow. She has extensive mucous in the back of the throat. She tells me she cannot eat, drink or swallow pills. PAST SURGICAL HISTORY 1. ELIO BSO and lysis of adhesions 09/26/2004. 2. Laparoscopic excision of liver cyst and laparoscopic cholecystectomy 03/07/2009. 3. 11/13/2009 right breast lumpectomy and axillary lymph node biopsy. 4. 02/21/2010, right total mastectomy. 5. Bprpiy-D-Cktv placement. PAST MEDICAL HISTORY 1. Stage IV breast cancer with metastatic disease to bone, lymph nodes, soft tissue, skin, pleura, status post multiple hormonal therapy and chemotherapy. 2. Mitral valve replacement. 3. Elevated cholesterol. MEDICATIONS PRIOR TO ADMISSION 1. Aspirin 81 mg a day. 2. Metoprolol. 3. Morphine sulfate 30 mg p.o. q.8 hours. ALLERGIES DARVOCET SELDANE ZANTAC FAMILY HISTORY Noncontributory. REVIEW OF SYSTEMS Notable for weakness, diminished appetite, shortness of breath, difficulty swallowing, phlegm in back of throat, pain in the right shoulder, left shoulder, right lower neck, and generalized decline in performance status. PHYSICAL EXAMINATION: RR 20 Pulse 90 Afebrile. Physical examination reveals a chronically ill-appearing female. She is frail. She has a right chest tube. Head is normocephalic. Sclerae and conjunctiva normal. Oropharynx is unremarkable. There is adenopathy in the right supraclavicular area. The right neck, back and chest wall area is infiltrated by tumor. There are multiple nodules over the right anterior chest wall. There is nodularity over the sternum. Heart: Regular rhythm. Lungs: Left lung clear. Right lung diminished sounds at the base. Abdomen: Without hepatosplenomegaly. Extremities: Trace edema. Musculoskeletal: Muscle wasting. Neurologic: Right arm weakness. ASSESSMENT: The patient is a 61 year-old female with stage IV breast cancer involving chest wall, neck, skin, bone, lymph nodes, and pleura. She has received extensive chemotherapy, hormonal therapy, and radiation. She now has a symptomatic right pleural effusion with shortness of breath. The major problem oddly enough is not the shortness of breath and the pleural effusion but the phlegm in the back of the throat which prevents her from eating, drinking and taking pain medication. RECOMMENDATIONS: 1. I would recommend the patient have a pleurodesis. I believe the fluid will re-accumulate. I feel it is highly unlikely that I will be able to control her breast cancer and would anticipate that within several weeks the right pleural effusion will reoccur unless she undergoes a successful pleurodesis. 2. She is not able to swallow and I will ask ENT to do an exam as it is not clear to me why she is having difficulty swallowing. MD ABBY Luna/ALEXEY /9:02 PM /9:20 PM MTDLionel
[2016-07-15] VITALS (7 sets, daily range): BP systolic 103–126; BP diastolic 56–84; PULSE 88–104; RESP 16–18; TEMP 97.4–98.8; O2SAT 96–100
[2016-07-15] MEDS: DEXTROSE 5% IN WATE 1000ML INJ 1,000 ML IV SCH ×3 (01:10→20:05)
[2016-07-15] MEDS: HYDROmorphone HCL PF 1 MG/ML VIAL IV PRN ×4 (02:22→20:05)
[2016-07-15] MEDS: RESP: ALBUTEROL 2.5 MG/IPRATROPIUM 0.5 MG NEB (PRN) NEB (02:51)
[2016-07-15 06:45] LABS: AUTOMATED NEUTROPHIL # 2.7 TH/MM3 (1.8-7.7); BASOPHIL % 1.1 % (0.0-2.0); EOSINOPHIL # 0.1 TH/MM3 (0-0.4); EOSINOPHIL % 3.2 % (0.0-4.0); HEMATOCRIT 32.8 % (35.0-46.0); HEMO FLAGS DIFF FINAL; LYMPH % 9.9 % (9.0-44.0); LYMPHOCYTE # 0.4 TH/MM3 (1.0-4.8); MEAN CELL VOLUME 88.4 FL (80.0-100.0); MEAN CORPUSCULAR HEMOGLOBIN 28.8 PG (27.0-34.0); MEAN CORPUSCULAR HGB CONC 32.5 % (32.0-36.0); MONO % 10.6 % (0.0-8.0); NEUT % 75.2 % (16.0-70.0); PLATELET COUNT 205 TH/MM3 (150-450); RED BLOOD COUNT 3.71 MIL/MM3 (4.00-5.30); RED CELL DISTRIBUTION WIDTH 16.6 % (11.6-17.2); WHITE BLOOD COUNT 3.6 TH/MM3 (4.0-11.0)
[2016-07-15 07:10] LABS: BICARBONATE 28.6 MEQ/L (21.0-32.0)
[2016-07-15] MEDS: RESP: ALBUTEROL 2.5 MG/IPRATROPIUM 0.5 MG NEB (SCH) NEB ×3 (07:21→20:10)
[2016-07-15] MEDS ORDERED: POTASSIUM CHLORIDE 10 MEQ CONTROLLED RELEASE TAB PO ONE (08:00)
--- NOTE | 2016-07-15 08:23 | HHI.PR ---
Subjective Remarks Patient seen in follow up for right pleural effusion, advanced breast cancer, and odynophagia. Patient reports that her breathing is unchanged. She is still having issues with inability to swallow most things due to phlegm. She reports that it comes right back up. Objective Vitals Vital Signs Date Time Temp Pulse Resp B/P Pulse Ox O2 Delivery O2 Flow Rate FiO2 07/15/16 07:22 100 Nasal Cannula 2.00 07/15/16 04:37 98.8 96 16 109/69 100 07/15/16 00:00 98.4 90 16 112/56 96 07/14/16 20:55 100 Nasal Cannula 2.00 07/14/16 20:00 98.8 77 18 121/65 100 07/14/16 16:00 98.8 78 18 110/63 100 07/14/16 11:45 97.1 90 22 131/65 100 I/O 07/14/16 07/14/16 07/14/16 07/15/16 07/15/16 07/15/16 07:00 15:00 23:00 07:00 15:00 23:00 Intake Total 900 ml 120 ml 1202 ml 1477 ml Output Total 100 ml 300 ml 1300 ml 700 ml Balance 800 ml -180 ml -98 ml 777 ml Intake Oral 120 ml 480 ml 0 ml IV Total 900 ml 722 ml 1477 ml Output Urine Total 300 ml 1300 ml 700 ml Chest Tube Drainage Total 100 ml # Voids 4 1 # Bowel Movements 0 0 Result Diagram: 07/15/16 0435 07/15/16 0435 Imaging Last Impressions Chest X-Ray 07/14/16 0000 Signed Impressions: Service Date/Time: Thursday, July 14, 2016 04:53 - CONCLUSION: Improving small right apical pneumothorax with 6 mm of separation on today's exam. Eugene Stinson MD Thoracentesis Ultrasound 07/13/16 0000 Signed Impressions: Service Date/Time: Wednesday, July 13, 2016 15:45 - CONCLUSION: Uncomplicated ultrasound guided thoracentesis. Juan Diego Shipman MD FACR Objective Remarks GENERAL: Patient is in no acute distress. CARDIOVASCULAR: Normal rate and regular rhythm without murmurs, gallops, or rubs. RESPIRATORY: Good respiratory efforts. Right mid to lower lung baez with diminished breath sounds. Rest of lung baez clear to auscultation. No wheezing. Right chest tube in place, dressing intact but there appears to be an air leak. GASTROINTESTINAL: Abdomen soft, non-tender, non-distended. Normal active bowel sounds MUSCULOSKELETAL: Extremities without cyanosis, or edema. NEURO: Alert & Oriented x4 to person, place, time, situation. Moves all ext x4 PSYCH: Appropriate mood and affect. Procedures Ultrasound-guided thoracentesis 07/13/16 Right chest tube placed 01/09/17 A/P Problem List: (1) PNA (pneumonia) ICD Code: J18.9 Status: Acute (2) Pleural effusion, right ICD Code: J90 Status: Acute (3) Breast CA ICD Code: C50.919 Status: Acute (4) Pneumothorax, right ICD Code: J93.9 Status: Acute Assessment and Plan 61 Y/O female with: Right large pleural effusion: Patient is status post ultrasound-guided thoracentesis on 07/13/16. Fluid culture is pending. Agree with Oncologist Dr. Lama who recommends Pleurodesis as fluid would likely recur. IR consulted for this. Patient is scheduled for today. Right lung pneumothorax after thoracentesis: Probably due to noncompliant lungs. Chest tube placed on 07/13/16. Incentive spirometer. Interventional radiology following. Possible pneumonia: Cannot rule out consolidation in the right lower lobe. Continue Rocephin and azithromycin for possible pneumonia given her immunocompromise state. Sputum and blood cultures are pending. Dysphagia: Patient reports inability to eat, drink, swallow pills due to pain and phlegm in her throat. ENT has been consulted. Breast CA, Metastatic and advanced. S/p Mastectomy, Chemo and radiation w/ recurrence and metastatic disease in 2014. Appreciate Dr. Lama following. Hypokalemia: Replace and monitor. Hypoglycemia: Treatment per hypoglycemia protocol Hypertension: Currently normotensive, on Lopressor 12.5 mg daily with holding parameters. Vasotec when necessary DVT Prophylaxis: SCD/Teds. Sakina Travis MD Jul 15, 2016 08:23
[2016-07-15] MEDS: METOPROLOL SUCCINATE 25 MG EXTENDED RELEASE TAB PO SCH (09:00)
[2016-07-15] MEDS: SODIUM CHLORIDE 0.9% FLUSH 5 ML FLUSH FLUSH SCH ×2 (09:00→20:17)
[2016-07-15] MEDS: POTASSIUM CHLOR 20 MEQ PREMIX 100 ML IV SCH ×2 (10:30→13:39)
--- NOTE | 2016-07-15 11:16 | RADRPT ---
EXAM DATE/TIME: 07/15/2016 10:05 [facility] COMPARISON: CHEST EXPIRATION ONLY, July 14, 2016, 4:53. INDICATIONS : Pneumothorax. MEDICAL HISTORY : Carcinoma, breast. SURGICAL HISTORY : Mastectomy, right. ENCOUNTER: Subsequent ACUITY: 3 days PAIN SCORE: 4/10 LOCATION: Right chest FINDINGS: A right-sided pigtail thoracostomy tube has been removed. There has been slight interval increase in right apical pneumothorax with about 14 mm separation of apical pleural layers. Small effusion persis ts. Interstitial infiltrates mainly in the lower lungs persists. Left lung remains clear and well inf lated. The left chest port is in stable position and is accessed. Skeletal structures are stable. The re are surgical clips in the right axilla. CONCLUSION: Slight interval increase in right apical pneumothorax with removal of thoracostomy tube. Jose E Corona MD on July 15, 2016 at 11:11 Board Certified Radiologist. This report was verified electronically.
--- NOTE | 2016-07-15 17:21 | RADRPT ---
EXAM DATE/TIME: 07/15/2016 14:56 [facility] COMPARISON: CHEST EXPIRATION ONLY, July 15, 2016, 10:05. INDICATIONS : Pneumothorax. MEDICAL HISTORY : Carcinoma, breast. pleural effusion, mitral valve prolapse, heart murmur SURGICAL HISTORY : right breast lumpectomy. ENCOUNTER: Initial ACUITY: 2 days PAIN SCORE: 0/10 LOCATION: Bilateral chest FINDINGS: The examination demonstrates a small right-sided pneumothorax. The patient's chest tube is no longer evident. The pneumothorax is stable when compared to previous study of 07/15/16. The majority of this is likely from a noncompliant right lung. There is a small right basilar effusion. The left lung demonstrates chronic interstitial changes but otherwise clear. CONCLUSION: 1. Small right pneumothorax unchanged from previous at 10: 2. 05 AM. Orlando Shipman MD on July 15, 2016 at 17:18 Board Certified Radiologist. This report was verified electronically.
--- NOTE | 2016-07-15 17:26 | PD.ONC.PN ---
Subjective Subjective Remarks Afebrile overnight. Pt resting in bed talking on the phone. She states her pain is mostly controlled with prn medications. She tells me that she cannot swallow even thin liquids. She is asking when ENT will be here. Objective Data Date Time Temp Pulse Resp B/P Pulse Ox O2 Delivery O2 Flow Rate FiO2 07/15/16 16:00 98.7 91 16 124/78 100 07/15/16 12:00 98.6 98 16 126/71 100 07/15/16 08:00 97.4 88 18 124/84 100 07/15/16 07:22 100 Nasal Cannula 2.00 07/15/16 04:37 98.8 96 16 109/69 100 07/15/16 00:00 98.4 90 16 112/56 96 07/14/16 20:55 100 Nasal Cannula 2.00 07/14/16 20:00 98.8 77 18 121/65 100 07/15/16 07/15/16 07/15/16 07:00 15:00 23:00 Intake Total 1477 ml 960 ml Output Total 700 ml Balance 777 ml 960 ml Result Diagram: 07/15/16 0435 07/15/16 0435 Laboratory Results Laboratory Tests Test 07/15/16 04:35 White Blood Count 3.6 TH/MM3 Red Blood Count 3.71 MIL/MM3 Hemoglobin 10.7 GM/DL Hematocrit 32.8 % Mean Corpuscular Volume 88.4 FL Mean Corpuscular Hemoglobin 28.8 PG Mean Corpuscular Hemoglobin 32.5 % Concent Red Cell Distribution Width 16.6 % Platelet Count 205 TH/MM3 Mean Platelet Volume 8.5 FL Neutrophils (%) (Auto) 75.2 % Lymphocytes (%) (Auto) 9.9 % Monocytes (%) (Auto) 10.6 % Eosinophils (%) (Auto) 3.2 % Basophils (%) (Auto) 1.1 % Neutrophils # (Auto) 2.7 TH/MM3 Lymphocytes # (Auto) 0.4 TH/MM3 Monocytes # (Auto) 0.4 TH/MM3 Eosinophils # (Auto) 0.1 TH/MM3 Basophils # (Auto) 0.0 TH/MM3 CBC Comment DIFF FINAL Differential Comment Sodium Level 136 MEQ/L Potassium Level 3.0 MEQ/L Chloride Level 97 MEQ/L Carbon Dioxide Level 28.6 MEQ/L Anion Gap 10 MEQ/L Blood Urea Nitrogen 3 MG/DL Creatinine 0.49 MG/DL Estimat Glomerular Filtration 155 ML/MIN Rate Random Glucose 125 MG/DL Calcium Level 8.8 MG/DL Culture Results Microbiology Date/Time Procedure Status Source Growth 07/12/16 20:50 Aerobic Blood Culture - Preliminary Resulted Blood Peripheral NO GROWTH IN 3 DAYS 07/12/16 20:50 Anaerobic Blood Culture - Preliminary Resulted Blood Peripheral NO GROWTH IN 3 DAYS 07/12/16 20:55 Aerobic Blood Culture - Preliminary Resulted Blood Peripheral NO GROWTH IN 3 DAYS 07/12/16 20:55 Anaerobic Blood Culture - Preliminary Resulted Blood Peripheral NO GROWTH IN 3 DAYS 07/13/16 16:25 Gram Stain - Final Resulted Fluid Pleural Fluid 07/13/16 16:25 Body Fluid Culture - Preliminary Resulted Fluid Pleural Fluid NO GROWTH IN 48 HOURS. Imaging Studies Last 24 hours Impressions Chest X-Ray 07/15/16 0000 Signed Impressions: Service Date/Time: Friday, July 15, 2016 10:05 - CONCLUSION: Slight interval increase in right apical pneumothorax with removal of thoracostomy tube. Jose E Corona MD Administered Medications Medications (Trade) Dose Ordered Sig/Mitch Route PRN Reason Start Time Stop Time Status Last Admin Dose Admin Ceftriaxone Sodium 1000 mg/ Sodium Chloride 100 ml @ 200 mls/hr Q24H IV 07/13/16 21:00 07/14/16 20:07 Azithromycin/ Sodium Chloride (Zithromax Inj/ NS 250 ml Inj) 250 ml @ 250 mls/hr Q24H IV 07/13/16 21:00 07/14/16 20:07 IV Flush (NS Flush) 2 ml BID FLUSH 07/12/16 21:00 07/13/16 20:09 Ondansetron HCl (Zofran Inj) 4 mg Q6H PRN IVP NAUSEA OR VOMITING 07/12/16 21:00 07/13/16 00:30 Hydromorphone HCl (Dilaudid Pf Inj) 1 mg Q3H PRN IV Pain 6-10 07/12/16 21:00 07/15/16 16:35 Dextrose (D50w (Vial) Inj) 25 ml UNSCH PRN IV PUSH HYPOGLYCEMIA-SEE COMMENTS 07/13/16 06:15 07/13/16 11:55 Guaifenesin (Robitussin Liq) 200 mg Q4H PRN PO cough 07/13/16 10:30 07/14/16 01:08 Metoprolol Succinate 12.5 mg 12.5 mg DAILY PO 07/14/16 09:00 07/14/16 09:37 Dextrose (D5W 1000 ml Inj) 1,000 ml @ 100 mls/hr Q10H IV 07/13/16 22:15 07/15/16 01:10 Objective Remarks GENERAL: Older female, lying in bed in no distress. SKIN: Warm and dry. HEAD: Normocephalic. EYES: No injection or drainage. NECK: Supple, trachea midline. CARDIOVASCULAR: +S1/S2. No murmur appreciated. RESPIRATORY: Lungs clear throughout. Breathing easy and unlabored. GASTROINTESTINAL: Abdomen soft, non-tender, nondistended. EXTREMITIES: No edema. NEUROLOGICAL: No obvious focal deficit. Awake, alert, and oriented x3. Assessment/Plan Assessment Pt still with difficulty swallowing. We are awaiting consultation from ENT. Unfortunately her chest tube accidentally fell out so we will have to wait for the fluid to re-accumulate to re-insert. Discussed with Dr. Lama. Sofia Henriquez Jul 15, 2016 17:26
[2016-07-15] MEDS: AZITHROMYCIN INJ 500 MG in SODIUM CHLOR 0.9% 250 ML INJ 250 ML IV SCH (20:05)
[2016-07-15] MEDS: cefTRIAXone INJ 1,000 MG in SODIUM CHLORIDE 0.9% INJ 100 ML IV SCH (21:56)
[2016-07-16] VITALS (8 sets, daily range): BP systolic 104–139; BP diastolic 69–90; PULSE 81–103; RESP 16–18; TEMP 98.1–99; O2SAT 99–100
[2016-07-16] MEDS: HYDROmorphone HCL PF 1 MG/ML VIAL IV PRN ×5 (04:52→22:00)
[2016-07-16 06:18] LABS: HEMATOCRIT 33.1 % (35.0-46.0); MEAN CELL VOLUME 87.4 FL (80.0-100.0); MEAN CORPUSCULAR HEMOGLOBIN 29.4 PG (27.0-34.0); MEAN CORPUSCULAR HGB CONC 33.7 % (32.0-36.0); PLATELET COUNT 232 TH/MM3 (150-450); RED BLOOD COUNT 3.79 MIL/MM3 (4.00-5.30); RED CELL DISTRIBUTION WIDTH 16.5 % (11.6-17.2); REVIEW FLAG FINAL; WHITE BLOOD COUNT 2.6 TH/MM3 (4.0-11.0)
[2016-07-16 06:39] LABS: BICARBONATE 30.9 MEQ/L (21.0-32.0); POTASSIUM 3.2 MEQ/L (3.5-5.1)
[2016-07-16] MEDS: RESP: ALBUTEROL 2.5 MG/IPRATROPIUM 0.5 MG NEB (SCH) NEB ×2 (07:30→19:54)
[2016-07-16] MEDS: METOPROLOL SUCCINATE 25 MG EXTENDED RELEASE TAB PO SCH (08:09)
[2016-07-16] MEDS: SODIUM CHLORIDE 0.9% FLUSH 5 ML FLUSH FLUSH SCH ×2 (08:09→20:25)
--- NOTE | 2016-07-16 08:42 | HHI.PR ---
Subjective Remarks Patient seen in follow up for right pleural effusion, advanced breast cancer, and odynophagia. Chest tube fell out yesterday. SOB is unchanged. She reports heart palpitations. She has not been able to take Lopressor due to issues with swallowing. GALINDO RN. Objective Vitals Vital Signs Date Time Temp Pulse Resp B/P Pulse Ox O2 Delivery O2 Flow Rate FiO2 07/16/16 08:00 98.2 94 16 124/74 100 07/16/16 07:37 99 Nasal Cannula 2.00 07/16/16 05:56 99.0 103 16 139/90 100 07/16/16 00:25 98.1 81 16 112/72 100 07/15/16 21:55 98.2 104 16 103/58 100 07/15/16 16:00 98.7 91 16 124/78 100 07/15/16 12:00 98.6 98 16 126/71 100 I/O 07/15/16 07/15/16 07/15/16 07/16/16 07/16/16 07/16/16 07:00 15:00 23:00 07:00 15:00 23:00 Intake Total 1477 ml 960 ml 0 ml 0 ml 1569 ml Output Total 700 ml 500 ml Balance 777 ml 960 ml 0 ml -500 ml 1569 ml Intake Oral 0 ml 960 ml 0 ml 0 ml IV Total 1477 ml 1569 ml Output Urine Total 700 ml 500 ml # Voids 6 0 # Bowel Movements 0 1 0 2 Result Diagram: 07/16/16 0500 07/16/16 0500 Imaging Last Impressions Chest X-Ray 07/15/16 1500 Signed Impressions: Service Date/Time: Friday, July 15, 2016 14:56 - CONCLUSION: 1. Small right pneumothorax unchanged from previous at 10: 2. 05 AM. Orlando Shipman MD Thoracentesis Ultrasound 07/13/16 0000 Signed Impressions: Service Date/Time: Wednesday, July 13, 2016 15:45 - CONCLUSION: Uncomplicated ultrasound guided thoracentesis. Juan Diego Shipman MD FACR Objective Remarks GENERAL: Patient is in no acute distress. CARDIOVASCULAR: Normal rate and regular rhythm without murmurs, gallops, or rubs. RESPIRATORY: Good respiratory efforts. Right mid to lower lung baez with markedly diminished breath sounds. Rest of lung baez clear to auscultation. No wheezing. GASTROINTESTINAL: Abdomen soft, non-tender, non-distended. Normal active bowel sounds MUSCULOSKELETAL: Extremities without cyanosis, or edema. NEURO: Alert & Oriented x4 to person, place, time, situation. Moves all ext x4 PSYCH: Appropriate mood and affect. Procedures Ultrasound-guided thoracentesis 07/13/16 Right chest tube placed 01/09/17 A/P Problem List: (1) PNA (pneumonia) ICD Code: J18.9 Status: Acute (2) Pleural effusion, right ICD Code: J90 Status: Acute (3) Breast CA ICD Code: C50.919 Status: Acute (4) Pneumothorax, right ICD Code: J93.9 Status: Acute Assessment and Plan 61 Y/O female with: Right large pleural effusion: Patient is status post ultrasound-guided thoracentesis on 07/13/16. Fluid culture is pending. Agree with Oncologist Dr. Lama who recommends Pleurodesis as fluid would likely recur. IR consulted for this but chest tube fell out. Per Oncology, awaiting for fluid to reaccumulate before reinserting. Right lung pneumothorax after thoracentesis: Probably due to noncompliant lungs. Chest tube placed on 07/13/16. Fell out on 07/15/16. Chest X-ray yesterday showed stable small pneumothorax. Repeat X-ray today to ensure stability and assess fluid status. Incentive spirometer. Interventional radiology following. Tachycardia: Patient with history of heart palpitations. She takes Metoprolol for this but cannot take now due to inability to swallow. Obtain EKG. If persistent and symptomatic, would consider IV beta blockers and alternate methods such as NGT. Possible pneumonia: Cannot rule out consolidation in the right lower lobe. Continue Rocephin and azithromycin for possible pneumonia given her immunocompromise state. Sputum and blood cultures are pending. Dysphagia: Patient reports inability to eat, drink, swallow pills due to pain and phlegm in her throat. ENT has been consulted. Barium swallow per ENT. Breast CA, Metastatic and advanced. S/p Mastectomy, Chemo and radiation w/ recurrence and metastatic disease in 2014. Appreciate Dr. Lama following. Hypokalemia: Replace and monitor. Hypoglycemia: Treatment per hypoglycemia protocol Hypertension: Currently normotensive, on Lopressor 12.5 mg daily with holding parameters. Vasotec when necessary DVT Prophylaxis: SCD/Teds. Sakina Travis MD Jul 16, 2016 08:42
[2016-07-16] MEDS: POTASSIUM CHLOR 20 MEQ PREMIX 100 ML IV SCH ×2 (09:11→12:33)
--- NOTE | 2016-07-16 10:36 | RADRPT ---
EXAM DATE/TIME: 07/16/2016 00:00 [facility] COMPARISON: No previous studies available for comparison. INDICATIONS : Dysphagia FLUORO TIME: 4.8 minutes IMAGE COUNT: 1 CONTRAST: Dose as prescribed by speech pathologist. MEDICAL HISTORY : Carcinoma, breast. SURGICAL HISTORY : right breast mastectomy, thoracentesis ENCOUNTER: Initial ACUITY: 4 - 6 days PAIN SCORE: 2/10 LOCATION: Bilateral neck FINDINGS: A modified barium swallow was performed with speech pathology. Patient was given a variety of liquids to swallow. No penetration or aspiration was visualized. For a full detailed report, see report by the speech pathologist. CONCLUSION: Administration or aspiration visualized. Galina Judge MD on July 16, 2016 at 10:33 Board Certified Radiologist. This report was verified electronically.
--- NOTE | 2016-07-16 10:47 | RADRPT ---
EXAM DATE/TIME: 07/16/2016 10:21 [facility] COMPARISON: CHEST SINGLE AP, July 12, 2016, 19:37. INDICATIONS : Pneumothorax, short of breath. MEDICAL HISTORY : Carcinoma, breast. SURGICAL HISTORY : mastectomy right breast, thoracentesis ENCOUNTER: Initial ACUITY: 4 - 6 days PAIN SCORE: 0/10 LOCATION: Bilateral chest FINDINGS: Single view of the chest demonstrates a left-sided central line with the tip overlying the SVC. There has been improved aeration of the right hemithorax with persistent right-sided fluid versus air space consolidation within the base. There is a appearance of a small right apical pneumothorax. Righ t-sided surgical clips. CONCLUSION: Small right apical pneumothorax suspected. Through lung exam of the right. Galina Judge MD on July 16, 2016 at 10:42 Board Certified Radiologist. This report was verified electronically.
[2016-07-16] MEDS: RESP: ALBUTEROL 2.5 MG/IPRATROPIUM 0.5 MG NEB (PRN) NEB (11:19)
[2016-07-16] MEDS: DEXTROSE 5% IN WATE 1000ML INJ 1,000 ML IV SCH ×2 (13:43→21:56)
--- NOTE | 2016-07-16 20:05 | EKG ---
Date Performed: 07/16/2016 Time Performed: 10:36:34 PTAGE: 61 years EKG: Sinus rhythm WITH OCCASIONAL premature ventricular and Premature atrial contractions. INCOMPLETE RIGHT BUNDLE BRA NCH BLOCK Since previous tracing, no significant change noted BORDERLINE ECG PREVIOUS TRACING : 07/12/2016 19.38 DOCTOR: Meek Kelley Interpretating Date/Time 07/16/2016 20:03:51
[2016-07-16] MEDS: cefTRIAXone INJ 1,000 MG in SODIUM CHLORIDE 0.9% INJ 100 ML IV SCH (20:20)
[2016-07-16] MEDS: AZITHROMYCIN INJ 500 MG in SODIUM CHLOR 0.9% 250 ML INJ 250 ML IV SCH (20:24)
[2016-07-17] VITALS (17 sets, daily range): BP systolic 116–140; BP diastolic 65–83; PULSE 78–105; RESP 16–22; TEMP 97.6–98.9; O2SAT 100
[2016-07-17] MEDS: HYDROmorphone HCL PF 1 MG/ML VIAL IV PRN ×6 (03:46→23:28)
[2016-07-17] MEDS: RESP: ALBUTEROL 2.5 MG/IPRATROPIUM 0.5 MG NEB (PRN) NEB ×2 (04:15→23:36)
[2016-07-17 06:16] LABS: HEMATOCRIT 32.3 % (35.0-46.0); MEAN CELL VOLUME 87.7 FL (80.0-100.0); MEAN CORPUSCULAR HEMOGLOBIN 29.7 PG (27.0-34.0); MEAN CORPUSCULAR HGB CONC 33.8 % (32.0-36.0); PLATELET COUNT 241 TH/MM3 (150-450); RED BLOOD COUNT 3.68 MIL/MM3 (4.00-5.30); RED CELL DISTRIBUTION WIDTH 16.5 % (11.6-17.2); REVIEW FLAG FINAL; WHITE BLOOD COUNT 2.6 TH/MM3 (4.0-11.0)
[2016-07-17 06:29] LABS: ANION GAP 8 MEQ/L (5-15); BICARBONATE 29.2 MEQ/L (21.0-32.0); BLOOD UREA NITROGEN LESS THAN 1 MG/DL (7-18); CHLORIDE 98 MEQ/L (98-107); GLOMERULAR FILTRATION RATE 171 ML/MIN (>89); POTASSIUM 3.6 MEQ/L (3.5-5.1); SODIUM (NA) 135 MEQ/L (136-145)
[2016-07-17] MEDS: SODIUM CHLORIDE 0.9% FLUSH 5 ML FLUSH FLUSH SCH ×2 (08:15→21:00)
[2016-07-17] MEDS: METOPROLOL SUCCINATE 25 MG EXTENDED RELEASE TAB PO SCH (08:15)
[2016-07-17] MEDS: RESP: ALBUTEROL 2.5 MG/IPRATROPIUM 0.5 MG NEB (SCH) NEB ×3 (09:04→19:08)
--- NOTE | 2016-07-17 09:15 | HHI.PR ---
Subjective Remarks Patient still cannot eat or drink. She reports that breathing is unchanged. Still gets significantly SOB with activities. Awaiting GI consult. She requested to take the trays away as she is unable to eat or drink. Objective Vitals Vital Signs Date Time Temp Pulse Resp B/P Pulse Ox O2 Delivery O2 Flow Rate FiO2 07/17/16 08:00 98.3 100 20 131/67 100 07/17/16 05:00 18 07/17/16 04:00 98.4 90 16 130/74 100 07/17/16 00:29 97.7 78 16 116/70 100 07/16/16 20:00 98.3 84 16 113/73 100 07/16/16 19:55 100 Nasal Cannula 2.00 07/16/16 16:00 98.2 94 18 106/74 100 07/16/16 12:00 98.1 97 18 104/69 100 I/O 07/16/16 07/16/16 07/16/16 07/17/16 07/17/16 07/17/16 07:00 15:00 23:00 07:00 15:00 23:00 Intake Total 0 ml 1809 ml 762 ml 0 ml Output Total 500 ml 400 ml Balance -500 ml 1809 ml 762 ml -400 ml Intake Oral 0 ml 240 ml 0 ml IV Total 1569 ml 762 ml Output Urine Total 500 ml 400 ml # Voids 3 # Bowel Movements 2 0 Result Diagram: 07/17/16 0356 07/17/16 0356 Objective Remarks GENERAL: Patient is in no acute distress. HEENT: Mouth is pasty and dry. I cannot appreciate any sore or lesions. Uvula midline. CARDIOVASCULAR: Normal rate and regular rhythm without murmurs, gallops, or rubs. RESPIRATORY: Good respiratory efforts. Right mid to lower lung baez with markedly diminished breath sounds. Rest of lung baez clear to auscultation. No wheezing. GASTROINTESTINAL: Abdomen soft, non-tender, non-distended. Normal active bowel sounds MUSCULOSKELETAL: Extremities without cyanosis, or edema. NEURO: Alert & Oriented x4 to person, place, time, situation. Moves all ext x4 PSYCH: Appropriate mood and affect. Procedures Ultrasound-guided thoracentesis 07/13/16 Right chest tube placed 01/09/17 A/P Problem List: (1) PNA (pneumonia) ICD Code: J18.9 Status: Acute (2) Pleural effusion, right ICD Code: J90 Status: Acute (3) Breast CA ICD Code: C50.919 Status: Acute (4) Pneumothorax, right ICD Code: J93.9 Status: Acute Assessment and Plan 61 Y/O female with: Right large pleural effusion in advanced breast cancer patient: Patient is status post ultrasound-guided thoracentesis on 07/13/16. Fluid culture is pending. Agree with Oncologist Dr. Lama who recommends Pleurodesis as fluid would likely recur. IR consulted for this but chest tube fell out. Per Oncology , awaiting for fluid to reaccumulate before reinserting. Right lung pneumothorax after thoracentesis: Probably due to noncompliant lungs. Chest tube placed on 07/13/16. Fell out on 07/15/16. Chest X-ray yesterday showed stable small pneumothorax. Repeat X-ray tomorrow to ensure stability and assess fluid status. Incentive spirometer. Interventional radiology following. Dysphagia: Patient reports inability to eat, drink, swallow pills due to pain and phlegm in her throat. ENT was consulted. Barium swallow did not reveal aspiration but there is severe oropharyngeal dysphasia and possible esophageal dysphagia per the speech therapist evaluation. - GI has been consulted for evaluation. - NPO for now Intermittent Tachycardia: Patient with history of heart palpitations. She takes Metoprolol for this but cannot take now due to inability to swallow. EKG is sinus. If persistent and symptomatic, would consider IV beta blockers and alternate methods such as NGT. Possible pneumonia: Cannot rule out consolidation in the right lower lobe. Continue Rocephin and azithromycin for possible pneumonia given her immunocompromise state. Sputum and blood cultures are pending unremarkable. Breast CA, Metastatic and advanced. S/p Mastectomy, Chemo and radiation w/ recurrence and metastatic disease in 2015. Appreciate Dr[address] Lama following. Hypokalemia: Replace and monitor. Hypoglycemia: Treatment per hypoglycemia protocol Hypertension: Currently normotensive, on Lopressor 12.5 mg daily with holding parameters. Vasotec when necessary DVT Prophylaxis: SCD/Teds. Sakina Travis MD Jul 17, 2016 09:15
--- NOTE | 2016-07-17 09:54 | PD.ONC.PN ---
Subjective Subjective Remarks Afebrile overnight. Patient resting comfortably. Complains of excessive mucous production and difficulty swallowing. Objective Data Date Time Temp Pulse Resp B/P Pulse Ox O2 Delivery O2 Flow Rate FiO2 07/17/16 09:05 100 Nasal Cannula 2.00 07/17/16 08:00 98.3 100 20 131/67 100 07/17/16 05:00 18 07/17/16 04:00 98.4 90 16 130/74 100 07/17/16 00:29 97.7 78 16 116/70 100 07/16/16 20:00 98.3 84 16 113/73 100 07/16/16 19:55 100 Nasal Cannula 2.00 07/16/16 16:00 98.2 94 18 106/74 100 07/16/16 12:00 98.1 97 18 104/69 100 07/17/16 07/17/16 07/17/16 07:00 15:00 23:00 Intake Total 0 ml Output Total 400 ml Balance -400 ml Result Diagram: 07/17/16 0356 07/17/16 0356 Laboratory Results Laboratory Tests Test 07/17/16 03:56 White Blood Count 2.6 TH/MM3 Red Blood Count 3.68 MIL/MM3 Hemoglobin 10.9 GM/DL Hematocrit 32.3 % Mean Corpuscular Volume 87.7 FL Mean Corpuscular Hemoglobin 29.7 PG Mean Corpuscular Hemoglobin 33.8 % Concent Red Cell Distribution Width 16.5 % Platelet Count 241 TH/MM3 Mean Platelet Volume 8.2 FL Sodium Level 135 MEQ/L Potassium Level 3.6 MEQ/L Chloride Level 98 MEQ/L Carbon Dioxide Level 29.2 MEQ/L Anion Gap 8 MEQ/L Blood Urea Nitrogen LESS THAN 1 MG/DL Creatinine 0.45 MG/DL Estimat Glomerular Filtration 171 ML/MIN Rate Random Glucose 85 MG/DL Calcium Level 9.3 MG/DL Administered Medications Medications (Trade) Dose Ordered Sig/Mitch Route PRN Reason Start Time Stop Time Status Last Admin Dose Admin Ceftriaxone Sodium 1000 mg/ Sodium Chloride 100 ml @ 200 mls/hr Q24H IV 07/13/16 21:00 07/16/16 20:20 Azithromycin/ Sodium Chloride (Zithromax Inj/ NS 250 ml Inj) 250 ml @ 250 mls/hr Q24H IV 07/13/16 21:00 07/16/16 20:24 IV Flush (NS Flush) 2 ml BID FLUSH 07/12/16 21:00 07/17/16 08:15 Ondansetron HCl (Zofran Inj) 4 mg Q6H PRN IVP NAUSEA OR VOMITING 07/12/16 21:00 07/13/16 00:30 Hydromorphone HCl (Dilaudid Pf Inj) 1 mg Q3H PRN IV Pain 6-10 07/12/16 21:00 07/17/16 08:10 Dextrose (D50w (Vial) Inj) 25 ml UNSCH PRN IV PUSH HYPOGLYCEMIA-SEE COMMENTS 07/13/16 06:15 07/13/16 11:55 Guaifenesin (Robitussin Liq) 200 mg Q4H PRN PO cough 07/13/16 10:30 07/14/16 01:08 Metoprolol Succinate 12.5 mg 12.5 mg DAILY PO 07/14/16 09:00 07/14/16 09:37 Dextrose (D5W 1000 ml Inj) 1,000 ml @ 100 mls/hr Q10H IV 07/13/16 22:15 07/16/16 21:56 Objective Remarks GENERAL: Elderly female, sitting up in bed SKIN: Warm and dry. chest wall, neck and back with tumor infiltration HEAD: Normocephalic. EYES: No injection or drainage. NECK: Supple, trachea midline. CARDIOVASCULAR: +S1/S2 RESPIRATORY: Breath sounds equal bilaterally. No accessory muscle use. GASTROINTESTINAL: Abdomen soft, non-tender, nondistended. EXTREMITIES: No cyanosis NEUROLOGICAL: No obvious focal deficit. Awake, alert, and oriented x3. Assessment/Plan Assessment 61y/o with stage IV breast cancer, dysphagia Plan 1. await GI consult. would recommend placing a G-tube as I do not think an NG tube would be practical for her. 2. Dr. Lama had a long conversation with the patient regarding code status. The patient wishes to be a full code. 3. will consult palliative care to assist with goals of care--current patient goals are not realistic. Attending Statement The exam, history, and the medical decision-making described in the above note were completed with the assistance of the mid-level provider. I reviewed and agree with the findings presented. I attest that I had a [id number] encounter with the patient on the same day, and personally performed and documented my assessment and findings in the medical record. I spoke with her about hospice and supportive care and she is not realistic. she wants CPR in spite of advanced disease and limited treatment options remaining. I spoke with GI Dr. Valdovinos and she will place a G tube wednesday as long as patient stable which she was not this afternoon. nothing further to add at present and will have palliative care evaluate and follow. Laquita Burton Jul 17, 2016 09:54 Dung Lama MD Jul 17, 2016 21:15 Dung Lama MD Jul 17, 2016 21:15
[2016-07-17] MEDS ORDERED: METOPROLOL TARTRATE 5 MG/5 ML VIAL IV PUSH PRN (10:15)
--- NOTE | 2016-07-17 11:09 | PD.CONS ---
Consult Service Palliative Care Consult Requested By Dr. Fox Primary Care Physician Salvador Cook MD Reason for Consultation a. To assist with evaluation and management of symptoms including:dyspnea, pain. b. To assist medical decision maker(s) with: better understanding of current medical conditions; weighing benefits/burdens of medical treatment options; making medical treatment decisions. HPI History of Present Illness Patient is a 61-year-old who is a past medical history of stage IV breast cancer that dates back to 2009. Patient underwent right lumpectomy and sentinel lymph node biopsy and had a subsequent right mastectomy. Patient also received chemotherapy for which she cannot complete due to neuropathy. She did get postoperative radiation. On 03/10/15 she was found to have local recurrence with involvement of the neck, supraclavicular area, sternum, right first rib. Tumor is positive for ER and [place] receptors. Patient has had various hormonal therapies. Patient's came to the hospital due to increasing increasing phlegm in the back or referral and was unable to take pain medication and unable to eat or drink. Patient went to the ER was found to have a large right pleural effusion. Patient receive ultrasound-guided thoracentesis on 07/13/2016 removing 1600 cc of fluid. Patient has a small pneumothorax and underwent a chest tube. Patient has lung reexpansion but still unable to swallow. Continue to have extensive mucus in the back of her throat patient cannot eat, drink or swallow pills. Oncology was consulted. Dr. Lama has spoken with patient. Oncology feels that given disease refractory to treatment there is little time remaining however patient wants full CPR and will probably G-tube placement. Palliative care was consulted to discuss goals of care. On my visit, pt having some episodes of tachcardia, and dyspnea. Pain "spasms of the left shoulder" sharp pain at neck and right shoulder; but her main complaint is dyspnea and tachycardia. Pt still alert and oriented and have capacity. Pt's and sister at bedside. Explain role of palliative care and to review goals of care. Pt have pain on the right shoulder that is sharp, but more recently more pain in the left shoulder that feel like spasm. Her main concern right now is the dyspnea, and tachycardia. It is anticipated she will go to ICU. Pt had a visit from Dr. Fox, and she understands that her prognosis, performance status score is poor. She maintains she still want to continue any and all treatment if possible, "Because I am not ready to give up. " Sister confirms that the family "believes in miracles, and that we have praying warriors all over." Pt would consider hospice, but would want it mainly for support at home. She would want to maintain DNR, hospital services, and revoke should she get stable or stronger for treatment. Given that right now her vitals is unstable, I revisited code status. She understands that if she declines more she would need to be on the ventilator, possibly shock or cpr/ acls. Reviewed that it does not treat the cancer, which is the utlimate course of her decline, pleural effusion, fatigue etc. Family at bedside acknowledge that. She still reaffirms "I told Dr. Fox my answer" and maintains Full code. Reviewed trach and peg. She is unsure about the trach, and how long she would want to be in life support if they cannot wean her off. She says she would want peg tube feedings for current inability to swallow and the icu. Function/Cognitive Trajectory Patient is weak, phlegm in the back of the throat as preventing her from eating drinking, swallowing or taking her pain medication. Review of Systems ROS Limitations: Clinical Condition Constitutional: COMPLAINS OF: Fatigue Respiratory: COMPLAINS OF: Cough, Sputum production, Shortness of breath Cardiovascular: COMPLAINS OF: Palpitations Musculoskeletal: COMPLAINS OF: Back pain, Neck pain Past Family Social History Coded Allergies: Adhesives (Unverified Allergy, Severe, RASH, 07/12/16) Celebrex (Verified Allergy, Severe, 07/12/16) gi upset Darvocet-N 100 (Verified Allergy, Severe, 07/12/16) n/v Zantac (Verified Allergy, Severe, itching, 07/12/16) Uncoded Allergies: SELDANE (Allergy, Severe, UNK, 02/21/10) Past Medical History PMH: Metastatic Breast CA, HTN and Anxiety Past Surgical History PAST SURGICAL HISTORY: , Right Breast Mastectomy, Right Lumpectomy, [id number], Hysterectomy Reported Medications Aspirin Metoprolol Morphine 30 mg by mouth every 8 hours Current Medications Medications (Trade) Dose Ordered Sig/Mitch Route Start Time Stop Time Status Last Admin Ceftriaxone Sodium 1000 mg/ Sodium Chloride 100 ml @ 200 mls/hr Q24H IV 07/13/16 21:00 07/16/16 20:20 (Zithromax Inj/ NS 250 ml Inj) 250 ml @ 250 mls/hr Q24H IV 07/13/16 21:00 07/16/16 20:24 (NS Flush) 2 ml UNSCH PRN FLUSH 07/12/16 21:00 (NS Flush) 2 ml BID FLUSH 07/12/16 21:00 07/17/16 08:15 (Zofran Inj) 4 mg Q6H PRN IVP 07/12/16 21:00 07/13/16 00:30 (Dulcolax Supp) 10 mg DAILY PRN [place] 07/12/16 21:00 (Tylenol) 650 mg Q6H PRN PO 07/12/16 21:00 ([place] 5-325 Mg) 1 tab Q4H PRN PO 07/12/16 21:00 (Dilaudid Pf Inj) 1 mg Q3H PRN IV 07/12/16 21:00 07/17/16 08:10 (D50w (Vial) Inj) 25 ml UNSCH PRN IV PUSH 07/13/16 06:15 07/13/16 11:55 (Glucagon Inj) 1 mg UNSCH PRN OTHER 07/13/16 06:15 (Robitussin Liq) 200 mg Q4H PRN PO 07/13/16 10:30 07/14/16 01:08 (Toprol Xl) 12.5 mg DAILY PO 07/14/16 09:00 07/14/16 09:37 (Vasotec Inj) 1.25 mg Q6H PRN IV PUSH 07/13/16 12:15 Miscellaneous 1 ea 1 ea UNSCH PRN OTHER 07/13/16 12:15 (D5W 1000 ml Inj) 1,000 ml @ 100 mls/hr Q10H IV 07/13/16 22:15 07/16/16 21:56 (Lopressor Inj) 2.5 mg Q6H PRN IV PUSH 07/17/16 10:15 Family History PAST FAMILY HISTORY: Reviewed. 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 Has one son and one daughter. Lives at home. Spiritual/Cultural Factors Jain Living Will: Never completed Health Care Surrogate: Never completed Durable Power of Personalized Living Manager: Never completed Physical Exam Vital Signs Date Time Temp Pulse Resp B/P Pulse Ox O2 Delivery O2 Flow Rate FiO2 07/17/16 09:05 100 Nasal Cannula 2.00 07/17/16 08:00 98.3 100 20 131/67 100 07/17/16 05:00 18 07/17/16 04:00 98.4 90 16 130/74 100 07/17/16 00:29 97.7 78 16 116/70 100 07/16/16 20:00 98.3 84 16 113/73 100 07/16/16 19:55 100 Nasal Cannula 2.00 07/16/16 16:00 98.2 94 18 106/74 100 07/16/16 12:00 98.1 97 18 104/69 100 07/16/16 07/17/16 19:00 07:00 Intake Total 1809 ml 762 ml Output Total 400 ml Balance 1809 ml 362 ml Intake Oral 240 ml 0 ml IV Total 1569 ml 762 ml Output Urine Total 400 ml # Voids 3 # Bowel Movements 0 Exam CONSTITUTIONAL/GENERAL: This is a frail, thin lady, dyspneic, fatigued, but alert. TUBES/LINES/DRAINS: chest tube. SKIN: No jaundice, rashes, or lesions. Ecchymoses on upper extremities. No wounds seen anteriorly. Skin temperature appropriate. Not diaphoretic. HEAD: Atraumatic. Normocephalic. EYES: Pupils equal and round and reactive. Extraocular motions intact. No scleral icterus. No injection or drainage. Fundi not examined. ENT: Hearing grossly normal. Nose without bleeding or purulent drainage. Throat without visible erythema, exudates, masses, or lesions. NECK: Trachea midline. Supple, nontender. No palpable thyroid enlargement or nodularity. CARDIOVASCULAR: Tachycardia, no murmurs, gallops, or rubs. No JVD. Peripheral pulses symmetric. RESPIRATORY/CHEST: decrease breath sound bilaterlly. chest tube GASTROINTESTINAL: Abdomen soft, non-tender, nondistended. No hepato-splenomegaly , or palpable masses. No guarding. Bowel sounds present. GENITOURINARY: Without palpable bladder distension. Olivera catheter in place. MUSCULOSKELETAL: Extremities without clubbing, cyanosis, or edema. tenderness at neck and shoulders. LYMPHATICS: No palpable cervical or supraclavicular adenopathy. NEUROLOGICAL: Awake and alert. Motor and sensory grossly within normal limits. Follows commands. Cognitively sharp. Moves all extremities. PSYCHIATRIC: no apparent hallucinations or other psychotic thought process. Somewhat anxious due to dyspnea. Diagnostic Tests Laboratory Laboratory Tests Test 07/15/16 07/16/16 07/17/16 04:35 05:00 03:56 White Blood Count 3.6 TH/MM3 2.6 TH/MM3 2.6 TH/MM3 (4.0-11.0) (4.0-11.0) (4.0-11.0) Red Blood Count 3.71 MIL/MM3 3.79 MIL/MM3 3.68 MIL/MM3 (4.00-5.30) (4.00-5.30) (4.00-5.30) Hemoglobin 10.7 GM/DL 11.2 GM/DL 10.9 GM/DL (11.6-15.3) (11.6-15.3) (11.6-15.3) Hematocrit 32.8 % 33.1 % 32.3 % (35.0-46.0) (35.0-46.0) (35.0-46.0) Mean Corpuscular Volume 88.4 FL 87.4 FL 87.7 FL (80.0-100.0) (80.0-100.0) (80.0-100.0) Mean Corpuscular Hemoglobin 28.8 PG 29.4 PG 29.7 PG (27.0-34.0) (27.0-34.0) (27.0-34.0) Mean Corpuscular Hemoglobin 32.5 % 33.7 % 33.8 % Concent (32.0-36.0) (32.0-36.0) (32.0-36.0) Red Cell Distribution Width 16.6 % 16.5 % 16.5 % (11.6-17.2) (11.6-17.2) (11.6-17.2) Platelet Count 205 TH/MM3 232 TH/MM3 241 TH/MM3 (150-450) (150-450) (150-450) Mean Platelet Volume 8.5 FL 8.1 FL 8.2 FL (7.0-11.0) (7.0-11.0) (7.0-11.0) Neutrophils (%) (Auto) 75.2 % (16.0-70.0) Lymphocytes (%) (Auto) 9.9 % (9.0-44.0) Monocytes (%) (Auto) 10.6 % (0.0-8.0) Eosinophils (%) (Auto) 3.2 % (0.0-4.0) Basophils (%) (Auto) 1.1 % (0.0-2.0) Neutrophils # (Auto) 2.7 TH/MM3 (1.8-7.7) Lymphocytes # (Auto) 0.4 TH/MM3 (1.0-4.8) Monocytes # (Auto) 0.4 TH/MM3 (0-0.9) Eosinophils # (Auto) 0.1 TH/MM3 (0-0.4) Basophils # (Auto) 0.0 TH/MM3 (0-0.2) CBC Comment DIFF FINAL Differential Comment Sodium Level 136 MEQ/L 136 MEQ/L 135 MEQ/L (136-145) (136-145) (136-145) Potassium Level 3.0 MEQ/L 3.2 MEQ/L 3.6 MEQ/L (3.5-5.1) (3.5-5.1) (3.5-5.1) Chloride Level 97 MEQ/L 98 MEQ/L 98 MEQ/L (98-107) (98-107) (98-107) Carbon Dioxide Level 28.6 MEQ/L 30.9 MEQ/L 29.2 MEQ/L (21.0-32.0) (21.0-32.0) (21.0-32.0) Anion Gap 10 MEQ/L (5-15) 7 MEQ/L (5-15) 8 MEQ/L (5-15) Blood Urea Nitrogen 3 MG/DL (7-18) 2 MG/DL (7-18) LESS THAN 1 MG/DL (7-18) Creatinine 0.49 MG/DL 0.47 MG/DL 0.45 MG/DL (0.50-1.00) (0.50-1.00) (0.50-1.00) Estimat Glomerular Filtration 155 ML/MIN 162 ML/MIN 171 ML/MIN Rate (>89) (>89) (>89) Random Glucose 125 MG/DL 97 MG/DL 85 MG/DL (74-106) (74-106) (74-106) Calcium Level 8.8 MG/DL 9.0 MG/DL 9.3 MG/DL (8.5-10.1) (8.5-10.1) (8.5-10.1) Result Diagram: 07/17/16 0356 07/17/16 0356 Imaging Last Impressions Modified Barium Swallow 07/16/16 0000 Signed Impressions: Service Date/Time: June 00:00 - CONCLUSION: Administration or aspiration visualized. Galina Judge MD Chest X-Ray 07/16/16 0000 Signed Impressions: Service Date/Time: June 10:21 - CONCLUSION: Small right apical pneumothorax suspected. Through lung exam of the right. Galina Judge MD Thoracentesis Ultrasound 07/13/16 0000 Signed Impressions: Service Date/Time: Wednesday, July 13, 2016 15:45 - CONCLUSION: Uncomplicated ultrasound guided thoracentesis. Juan Diego Shipman MD FACR Patient/Family Conference Present at Family Conference: pt's and pt's sister. Family Conference Location: Bedside Issues Discussed: * Palliative care role, purpose, approach * Additional medical, psychosocial, and spiritual history * Patients general health, functional status, and cognitive changes in the months leading up to the current hospitalization * Patient/family understanding of the current medical problems * Patient/family understanding of prognosis * Patients goals of care as best understood from advance directives and/or conversations and/or values * Current medical treatment options and benefits/burdens of those options * Likely scenarios comparing ongoing aggressive care with a transition to comfort measures only * Questions answered to the best of my ability * Palliative care contact information provided Assessment and Plan Disease Oriented Problem List: (1) Breast CA (2) Pleural effusion, right (3) PNA (pneumonia) (4) Pneumothorax Symptom Scale: (1) Fatigue 0-10 Scale: Unable to quantify Comment: cancer burden (2) Dyspnea 0-10 Scale: Unable to quantify (3) Pain 0-10 Scale: Unable to quantify (shoulders and neck, mets to right shoulder, neck. left should described as spasm.) Pertinent Non-Medical Issues Psychosocial: Spiritual: Legal: Ethical issues impacting care: Important Contacts . Prognosis 61 year old with recurrent stage IV breast CA. Complicated by pleural effusion , inability to swallow, weakness, pain, tachycardia, pnemothorax. Prognosis is poor. Code Status: Full Code Plan == Capacity- has capacity to make medical decisions. Knows she has cancer, that they are planning to move her to icu currently. ==HCProxy - would be . == Code status: Maintain Full code. == Goals: Very Aggressive. Has been told, and reviewed that prognosis is poor. That there is not much more that can be done. She states and family concurs "I believe in miracles, I am not ready to give up," "We have prayer warriors everywhere." Discussed hospice, and she states if she was in hospice, mostly would want the care at home for the meds, and managment of tube feedings. That if she gets stronger, she would want to continue chemo and whatever care that can be offered. 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 Trach- unsure about the trach, Understands that life support would not reverse her cancer, and her decline. Peg- want the G tube for current inability to swallow, and also if in ICU. I feel given pt's current state of mind pt has not accepted her disease process , goals would not change until sudden decline == Symptom of discomfort- Pain/ shoulders/ neck - dyspnea. given pt' s vitals currently are not stable, and will be transfer to icu, no new med rec at this current time. == Palliative Care will f/u as pt condition evolves. palliative care is not available over the weekend. Time Spent Total Floor Time (mins): 70 Face to Face Time (mins): 56 Thank you for the opportunity to participate in the care of Ms. Ricardo. Attestation To help prompt me to consider important information that might be impacting today's encounter and assessment, information from prior notes written by myself or my colleagues may have been "brought forward" into today's note. My signature on this note, however, is an attestation that I personally performed the exam, history, and/or decision-making noted today, and, unless otherwise indicated, the interactions with patient, family, and staff as well as the review of records all occurred today. I also attest that the listed assessment and stated plan reflect my best clinical judgment today based on the combination of historical information, prior notes, and today's exam/ interactions. When time spent is documented, it refers only to time spent today by the signer, or if indicated, combined time spent today by collaborating physician/nurse practitioner. Rocael Mancini MD Jul 17, 2016 11:09
--- NOTE | 2016-07-17 12:50 | PD.CONS ---
HPI History of Present Illness This is a 61 year old female patient with Stage IV Breast cancer. She was originally diagnosed in 2009 and underwent right lumpectomy, lymph node biopsy and then subsequent right mastectomy with postoperative radiation. She was started on chemotherapy, but could not complete this secondary to neuropathy. She then was found to have a recurrence in February of 2015 and treated with hormonal therapy. She was recently found to have progression of disease and the plan was to start gemcitabine, but she ended up in the hospital with inability to take po and shortness of breath. She was noted to have a right sided large pleural effusion and right pneumothorax. She is s/p ultrasound guided thoracentesis and chest tube. Oncology is following and has recommended a pleurodesis and the nurse reports that she does not have enough fluid for this at this time. This has improved, but she is still not able to take po. The patient tells me that she has had poor appetite and significant weight loss (unable to quantify), but was able to swallow up until last weekend. She feels that both liquids and solids are getting caught in her upper esophagus and that she cannot pass anything past this area. She reports that she has a hard time swallowing her saliva and has to suction this out. She does have some burning in her esophagus since having the barium yesterday. She does not have heartburn or abdominal pain. She has never had any issues with her esophagus or swallowing in the past and has never had an EGD or colonoscopy. She is being followed by oncology and they have recommended a PEG tube placement. She is currently tachypneic with shallow breathing. The nurse tells me that she is being transferred to the unit for tachycardia, as there are no telemetry beds in [facility] and Metoprol has been ordered. She underwent a modified barium swallow ( 07/16/16)----> severe oropharyngeal dysphagia, possible esophageal dysphagia. Lingual control was severely reduced for oral bolus cohesion, formation and posterior propulsion. Nasal regurgitation of thin liquids evident. Significant swallow delay observed, once swallow response occurred, laryngeal elevation, tongue base retraction and epiglottic inversion were porr/absent significant stasis present in the pyriform sinuses after each bolus presentation , limited upper esophageal sphincter opening. Though no penetration or aspiration was evidence, patietn at high risk for aspiration from spillover into airway after swallow. Speech therapy has recommended that the patient remain NPO with GI consultation for possible esophageal dilation and buypass feeding for nutritional supplementation with continued speech therapy to address and improve laryngeal elevation and hyoid excursion. (Roshni Bond) PFSH Past Medical History Metastatic Breast CA HTN Anxiety Past Surgical History Right Breast Mastectomy Right Lumpectomy [id number] Hysterectomy (Roshni Bond) Coded Allergies: Adhesives (Unverified Allergy, Severe, RASH, 07/12/16) Celebrex (Verified Allergy, Severe, 07/12/16) gi upset Darvocet-N 100 (Verified Allergy, Severe, 07/12/16) n/v Zantac (Verified Allergy, Severe, itching, 07/12/16) Uncoded Allergies: SELDANE (Allergy, Severe, UNK, 02/21/10) Medications Allergies Coded Allergies Type Severity Reaction Last Updated Verified Adhesives Allergy Severe RASH 07/12/16 No Celebrex Allergy Severe 07/12/16 Yes Darvocet-N 100 Allergy Severe 07/12/16 Yes Zantac Allergy Severe itching 07/12/16 Yes Uncoded Allergies Type Severity Reaction Last Updated Verified SELDANE Allergy Severe UNK 02/21/10 Active Scripts Medications Dose Route/Sig Days Date Category Morphine ER (Morphine Sulfate) 30 Mg Tab 30 Mg PO Q8H 07/12/16 Reported Metoprolol Succinate ER 24 HR (Metoprolol Succinate) 25 Mg Tab 12.5 Mg PO DAILY 07/12/16 Reported Aspirin 81 Mg Chew 81 Mg CHEW DAILY 07/12/16 Reported Family History Noncontributory Social History Negative for alcohol, tobacco or drugs. (Roshni Bond) Review of Systems Constitutional: COMPLAINS OF: Fatigue, DENIES: Weight loss Respiratory: COMPLAINS OF: Shortness of breath, DENIES: Cough Cardiovascular: DENIES: Chest pain Gastrointestinal: COMPLAINS OF: Difficulty Swallowing, Anorexia, Odynophagia, DENIES: Abdominal pain, Black stools, Bloody stools, Nausea, Vomiting, Swelling of Abdomen, Heartburn Integumentary: DENIES: Rash Hematologic/lymphatic: DENIES: Bruising Psychiatric: DENIES: Confusion (Roshni Bond) GI Exam Vitals I&O Vital Signs Date Time Temp Pulse Resp B/P Pulse Ox O2 Delivery O2 Flow Rate FiO2 07/17/16 09:05 100 Nasal Cannula 2.00 07/17/16 08:00 98.3 100 20 131/67 100 07/17/16 05:00 18 07/17/16 04:00 98.4 90 16 130/74 100 07/17/16 00:29 97.7 78 16 116/70 100 07/16/16 20:00 98.3 84 16 113/73 100 07/16/16 19:55 100 Nasal Cannula 2.00 07/16/16 16:00 98.2 94 18 106/74 100 I/O 07/16/16 07/16/16 07/16/16 07/17/16 07/17/16 07/17/16 07:00 15:00 23:00 07:00 15:00 23:00 Intake Total 0 ml 1809 ml 762 ml 0 ml 1330 ml Output Total 500 ml 400 ml 300 ml Balance -500 ml 1809 ml 762 ml -400 ml 1030 ml Intake Oral 0 ml 240 ml 0 ml IV Total 1569 ml 762 ml 1330 ml Output Urine Total 500 ml 400 ml 300 ml # Voids 3 # Bowel Movements 2 0 Imaging Last Impressions Modified Barium Swallow 07/16/16 0000 Signed Impressions: Service Date/Time: June 00:00 - CONCLUSION: Administration or aspiration visualized. Galina Judge MD Chest X-Ray 07/16/16 0000 Signed Impressions: Service Date/Time: June 10:21 - CONCLUSION: Small right apical pneumothorax suspected. Through lung exam of the right. Galina Judge MD Thoracentesis Ultrasound 07/13/16 0000 Signed Impressions: Service Date/Time: Wednesday, July 13, 2016 15:45 - CONCLUSION: Uncomplicated ultrasound guided thoracentesis. Juan Diego Shipman MD FACR Laboratory Test 07/17/16 03:56 White Blood Count 2.6 TH/MM3 Red Blood Count 3.68 MIL/MM3 Hemoglobin 10.9 GM/DL Hematocrit 32.3 % Mean Corpuscular Volume 87.7 FL Mean Corpuscular Hemoglobin 29.7 PG Mean Corpuscular Hemoglobin 33.8 % Concent Red Cell Distribution Width 16.5 % Platelet Count 241 TH/MM3 Mean Platelet Volume 8.2 FL Sodium Level 135 MEQ/L Potassium Level 3.6 MEQ/L Chloride Level 98 MEQ/L Carbon Dioxide Level 29.2 MEQ/L Anion Gap 8 MEQ/L Blood Urea Nitrogen LESS THAN 1 MG/DL Creatinine 0.45 MG/DL Estimat Glomerular Filtration 171 ML/MIN Rate Random Glucose 85 MG/DL Calcium Level 9.3 MG/DL Date/Time Procedure Status Source Growth 07/13/16 16:25 Gram Stain - Final Complete Fluid Pleural Fluid 07/13/16 16:25 Body Fluid Culture - Final Complete Fluid Pleural Fluid NO GROWTH IN 72 HRS.--AEROBICALLY OR ... 07/12/16 20:55 Aerobic Blood Culture - Final Complete Blood Peripheral NO GROWTH IN 5 DAYS 07/12/16 20:55 Anaerobic Blood Culture - Final Complete Blood Peripheral NO GROWTH IN 5 DAYS Physical Examination HEENT: Normocephalic; atraumatic; no jaundice. CHEST: Resp. shallow/even, tachypneic CARDIAC: ST- 120 ABDOMEN: Soft, nondistended, nontender; no hepatosplenomegaly; bowel sounds are present in all four quadrants. EXTREMITIES: No clubbing, cyanosis, or edema. SKIN: Normal; no rash; no jaundice. DEPALLETIZER OPERATOR: Lethargic and oriented times three. Generalized weakness (Roshni Bond) Assessment and Plan Plan ASSESSMENT: - Dysphagia, Anorexia. Pt has had ongoing issues with anorexia/weight loss, but started having difficulty with swallowing last week- unable to pass liquids/ solids past upper esophageal area. She underwent a modified barium swallow (07/16/16)----> severe oropharyngeal dysphagia, possible esophageal dysphagia. Lingual control was severely reduced for oral bolus cohesion, formation and posterior propulsion. Nasal regurgitation of thin liquids evident. Significant swallow delay observed, once swallow response occurred, laryngeal elevation, tongue base retraction and epiglottic inversion were porr/absent significant stasis present in the pyriform sinuses after each bolus presentation, limited upper esophageal sphincter opening. Though no penetration or aspiration was evidence, patient at high risk for aspiration from spillover into airway after swallow. Speech therapy has recommended that the patient remain NPO with GI consultation for possible esophageal dilation and bypass feeding for nutritional supplementation with continued speech therapy to address and improve laryngeal elevation and hyoid excursion. Oncology requesting PEG tube. D/W patient and family, but she is currently being transferred to unit for tachycardia/iv medication that needs monitoring and has mild resp. insufficiency. Will watch over weekend and consider EGD +/- Dilatation, PEG tube placement next week once medically stable. - Tachycardia, order to tx to monitored bed for medication, per primary - Resp. Insuff. with large pleural effusion, ptx. S/P thoracentesis, ct, plan is for pleurodesis once able. - Stage IV breast cancer. Dx in 2009 and underwent right lumpectomy, lymph node biopsy and then subsequent right mastectomy with postoperative radiation. She was started on chemotherapy, but could not complete this secondary to neuropathy. She then was found to have a recurrence in February of 2015 and treated with hormonal therapy. She was recently found to have progression of disease and the plan was to start gemcitabine, but she ended up in the hospital with inability to take po and shortness of breath. S PLAN: - NPO for now - PPI - Monitor labs - ? TPN over weekend - Consider EGD +/- Dilatation and possible PEG tube placement once stable - Supportive care - Further recommendations to follow based on results of above - Pt seen and examined by Dr. Valdovinos and myself and this note is written on her behalf (Roshni Bond) Physician Comments seen, examined agree with above ppn over the weekend (Maria Elena Valdovinos MD) Roshni Bond Jul 17, 2016 12:49 Maria Elena Valdovinos MD Jul 17, 2016 16:08
[2016-07-17] MEDS: DEXTROSE 5% IN WATE 1000ML INJ 1,000 ML IV SCH (14:58)
[2016-07-17] MEDS: CLINIMIX E 4.25/5 1000 mL- </= 42 mls/hr IV SCH ×3 (23:28)
[2016-07-17] MEDS: AZITHROMYCIN INJ 500 MG in SODIUM CHLOR 0.9% 250 ML INJ 250 ML IV SCH (23:56)
[2016-07-17] MEDS: FAT EMULSION 20% INJ 250 ML (@10 mls/hr) IV SCH (23:56)
[2016-07-17] MEDS: cefTRIAXone INJ 1,000 MG in SODIUM CHLORIDE 0.9% INJ 100 ML IV SCH (23:57)
[2016-07-18] VITALS (30 sets, daily range): BP systolic 119–162; BP diastolic 74–97; PULSE 86–131; RESP 16–18; TEMP 98.6–99; O2SAT 96–100
--- NOTE | 2016-07-18 | RADRPT ---
EXAM DATE/TIME: 07/17/2016 23:35 [facility] COMPARISON: CHEST SINGLE AP, July 16, 2016, 10:21. INDICATIONS : Pt short of breath. MEDICAL HISTORY : Carcinoma, breast. SURGICAL HISTORY : Mastectomy, right. Thoracentesis ENCOUNTER: Subsequent ACUITY: 1 week PAIN SCORE: 8/10 LOCATION: Bilateral chest FINDINGS: There is right basilar consolidation and small effusion suspected. Right apical pneumothorax is ident ified. Left lung is clear. Left-sided portacatheter is present and the tip overlies the SVC. Surgical clips overlie the right axilla. CONCLUSION: No significant change has occurred. Small right-sided pneumothorax. Danny Hamm MD on July 17, 2016 at 23:57 Board Certified Radiologist. This report was verified electronically.
[2016-07-18 00:23] LABS: BLOOD GAS BASE EXCESS 3.8 mmol/L (-2-2); BLOOD GAS CARBOXYHEMOGLOBIN 1.1 % (0-4); BLOOD GAS HCO3 28 mmol/L (22-26); BLOOD GAS METHEMOGLOBIN 1.1 % (0-2); BLOOD GAS O2 HGB SATURATION 97 % (90-100); BLOOD GAS OXYGEN CONTENT 15.6 Vol % (12.0-20.0); BLOOD GAS PCO2 48 mmHg (38-42); BLOOD GAS PO2 152 mmHg (61-120); BLOOD GAS TOTAL HGB 11.2 G/DL (12.0-16.0); CRITICAL VALUE NO; DRAW SITE LT RADIAL; LITER FLOW 2 L/M; NUMBER OF ARTERIAL PUNCTURES 1; OXYGEN DEVICE NASAL CANNULA; STAT YES; TEMP CORR TO 98.6; ULNAR PULSE PRESENT
[2016-07-18] MEDS: HYDROmorphone HCL PF 1 MG/ML VIAL IV PRN ×6 (03:38→22:24)
[2016-07-18] MEDS: RESP: ALBUTEROL 2.5 MG/IPRATROPIUM 0.5 MG NEB (SCH) NEB ×2 (07:26→12:59)
[2016-07-18 07:50] LABS: HEMATOCRIT 35.4 % (35.0-46.0); MEAN CELL VOLUME 88.2 FL (80.0-100.0); MEAN CORPUSCULAR HEMOGLOBIN 29.2 PG (27.0-34.0); MEAN CORPUSCULAR HGB CONC 33.1 % (32.0-36.0); PLATELET COUNT 300 TH/MM3 (150-450); RED BLOOD COUNT 4.01 MIL/MM3 (4.00-5.30); RED CELL DISTRIBUTION WIDTH 16.2 % (11.6-17.2); REVIEW FLAG FINAL; WHITE BLOOD COUNT 3.7 TH/MM3 (4.0-11.0)
[2016-07-18] MEDS: METOPROLOL SUCCINATE 25 MG EXTENDED RELEASE TAB PO SCH (08:02)
[2016-07-18] MEDS: SODIUM CHLORIDE 0.9% FLUSH 5 ML FLUSH FLUSH SCH ×2 (08:07→20:24)
[2016-07-18 08:11] LABS: BICARBONATE 30.5 MEQ/L (21.0-32.0); POTASSIUM 3.6 MEQ/L (3.5-5.1)
--- NOTE | 2016-07-18 09:51 | HHI.PR ---
Subjective Remarks Patient reports that she is feeling about the same. Breathing status is stable this morning. She was started on PPN. Objective Vitals Vital Signs Date Time Temp Pulse Resp B/P Pulse Ox O2 Delivery O2 Flow Rate FiO2 07/18/16 05:00 92 07/18/16 04:12 140/79 07/18/16 04:00 86 07/18/16 03:20 98.6 104 17 162/97 100 07/18/16 03:00 88 07/18/16 02:00 94 07/18/16 01:05 99.0 104 17 135/77 100 07/18/16 01:00 94 07/18/16 00:00 93 07/17/16 23:00 103 07/17/16 22:00 89 07/17/16 21:00 92 07/17/16 20:20 98.5 104 17 125/71 100 07/17/16 20:00 98 07/17/16 19:30 16 07/17/16 19:08 100 Nasal Cannula 2.00 07/17/16 19:00 105 07/17/16 16:00 82 07/17/16 15:00 90 07/17/16 15:00 98.9 104 17 140/72 100 07/17/16 14:00 96 07/17/16 13:00 92 07/17/16 12:30 97.6 98 22 123/65 100 07/17/16 12:27 90 07/17/16 12:27 98.6 89 17 138/83 100 I/O 07/17/16 07/17/16 07/17/16 07/18/16 07/18/16 07/18/16 07:00 15:00 23:00 07:00 15:00 23:00 Intake Total 0 ml 1570 ml Output Total 400 ml 300 ml Balance -400 ml 1270 ml Intake Oral 0 ml 240 ml IV Total 1330 ml Output Urine Total 400 ml 300 ml # Voids 1 # Bowel Movements 0 Result Diagram: 07/18/16 0730 07/18/16 0730 Objective Remarks GENERAL: Patient is in no acute distress. HEENT: Mouth is pasty and dry. I cannot appreciate any sore or lesions in her mouth. Uvula midline. CARDIOVASCULAR: Normal rate and regular rhythm without murmurs, gallops, or rubs. RESPIRATORY: Good respiratory efforts. Right mid to lower lung baez with markedly diminished breath sounds. Rest of lung baez clear to auscultation. No wheezing. GASTROINTESTINAL: Abdomen soft, non-tender, non-distended. Normal active bowel sounds MUSCULOSKELETAL: Extremities without cyanosis, or edema. NEURO: Alert & Oriented x4 to person, place, time, situation. Moves all ext x4 but generally weak. PSYCH: Appropriate mood and affect. Procedures Ultrasound-guided thoracentesis 07/13/16 Right chest tube placed 01/09/17 A/P Problem List: (1) PNA (pneumonia) ICD Code: J18.9 Status: Acute (2) Pleural effusion, right ICD Code: J90 Status: Acute (3) Breast CA ICD Code: C50.919 Status: Acute (4) Pneumothorax, right ICD Code: J93.9 Status: Acute Assessment and Plan 61 Y/O female with: Right large pleural effusion in advanced breast cancer patient: Patient is status post ultrasound-guided thoracentesis on 07/13/16. Fluid culture unremarkable. Pleurodesis considered but chest tube fell out. Consider again when fluid reaccumulates. Right lung pneumothorax after thoracentesis: Probably due to noncompliant lungs. Chest tube placed on 07/13/16. Fell out on 07/15/16. Chest X-ray shows stable small pneumothorax. Interventional radiology following. Dysphagia: Patient reports inability to eat, drink, swallow pills due to pain and phlegm in her throat. ENT was consulted. Barium swallow did not reveal aspiration but there is severe oropharyngeal dysphasia and possible esophageal dysphagia per the speech therapist evaluation. - GI following. NPO for now. PPN over the weekend. Plan for EGD early next week when the patient is more stable. Intermittent Tachycardia: Patient with history of heart palpitations. She takes Metoprolol for this but cannot take now due to inability to swallow. EKG is sinus. IV beta blockers as needed. Need alternate methods such as feeding tube. Possible pneumonia: Cannot rule out consolidation in the right lower lobe. Continue Rocephin and azithromycin for possible pneumonia given her immunocompromise state. Sputum and blood cultures are unremarkable. Breast CA, Metastatic and advanced. S/p Mastectomy, Chemo and radiation w/ recurrence and metastatic disease in 2015. Appreciate Dr. Lama following. Palliative care following. Prognosis is poor but patient wants to continue with aggressive care. Hypoglycemia: Treatment per hypoglycemia protocol Hypertension: Currently normotensive, on Lopressor 12.5 mg daily with holding parameters. Vasotec when necessary DVT Prophylaxis: SCD/Teds. Sakina Travis MD Jul 18, 2016 09:51
[2016-07-18] MEDS: DEXTROSE 5% IN WATE 1000ML INJ 1,000 ML IV SCH ×2 (11:18→22:15)
[2016-07-18] MEDS ORDERED: DEXTROSE 50% IN WATER 50 ML VIAL(D50) IV PUSH PRN (13:00)
[2016-07-18] MEDS ORDERED: GLUCAGON 1 MG/ML VIAL OTHER PRN (13:00)
[2016-07-18] MEDS: INSULIN ASPART SUPPLEMENTAL SCALE SQ SCH ×2 (16:00→21:00)
[2016-07-18] MEDS: RESP: ALBUTEROL 2.5 MG/IPRATROPIUM 0.5 MG NEB (PRN) NEB ×2 (17:50→20:00)
[2016-07-18] MEDS: FAT EMULSION 20% INJ 250 ML (@10 mls/hr) IV SCH (19:45)
[2016-07-18] MEDS: AZITHROMYCIN INJ 500 MG in SODIUM CHLOR 0.9% 250 ML INJ 250 ML IV SCH (19:48)
[2016-07-18] MEDS: cefTRIAXone INJ 1,000 MG in SODIUM CHLORIDE 0.9% INJ 100 ML IV SCH (19:50)
[2016-07-18] MEDS: CLINIMIX E 4.25/5 1000 mL- </= 42 mls/hr IV SCH ×3 (20:23)
[2016-07-18] MEDS ORDERED: HYOSCYAMINE 0.5 MG/ML AMP IVP ONE (22:30)
[2016-07-19] VITALS (25 sets, daily range): BP systolic 120–153; BP diastolic 77–91; PULSE 68–115; RESP 18–24; TEMP 98.5–99.1; O2SAT 97–100
[2016-07-19] MEDS: HYDROmorphone HCL PF 1 MG/ML VIAL IV PRN ×7 (02:00→23:32)
[2016-07-19] MEDS: INSULIN ASPART SUPPLEMENTAL SCALE SQ SCH ×4 (05:01→21:00)
[2016-07-19 07:34] LABS: MEAN CELL VOLUME 87.8 FL (80.0-100.0); MEAN CORPUSCULAR HEMOGLOBIN 29.8 PG (27.0-34.0); MEAN CORPUSCULAR HGB CONC 33.9 % (32.0-36.0); PLATELET COUNT 275 TH/MM3 (150-450); RED BLOOD COUNT 3.76 MIL/MM3 (4.00-5.30); RED CELL DISTRIBUTION WIDTH 16.3 % (11.6-17.2); REVIEW FLAG FINAL; WHITE BLOOD COUNT 3.3 TH/MM3 (4.0-11.0)
[2016-07-19 08:01] LABS: BICARBONATE 32.6 MEQ/L (21.0-32.0); POTASSIUM 4.1 MEQ/L (3.5-5.1)
[2016-07-19] MEDS: DEXTROSE 5% IN WATE 1000ML INJ 1,000 ML IV SCH ×2 (08:15→17:26)
[2016-07-19] MEDS: METOPROLOL SUCCINATE 25 MG EXTENDED RELEASE TAB PO SCH (08:53)
[2016-07-19] MEDS: SODIUM CHLORIDE 0.9% FLUSH 5 ML FLUSH FLUSH SCH ×2 (08:53→20:29)
--- NOTE | 2016-07-19 09:05 | HHI.PR ---
Subjective Remarks Heart rate went up overnight requiring IV Lopressor. Currently reports that she is feeling okay. Shortness of breath is unchanged. Objective Vitals Vital Signs Date Time Temp Pulse Resp B/P Pulse Ox O2 Delivery O2 Flow Rate FiO2 07/19/16 06:00 68 07/19/16 05:00 87 07/19/16 04:00 88 07/19/16 04:00 98.9 94 18 144/81 100 07/19/16 03:00 91 07/19/16 02:00 101 07/19/16 01:00 97 07/19/16 00:00 98.5 115 18 128/78 100 07/19/16 00:00 99 07/18/16 23:40 105 142/84 07/18/16 23:23 131 07/18/16 23:00 124 07/18/16 22:00 120 07/18/16 21:00 111 07/18/16 20:01 96 Nasal Cannula 2.00 07/18/16 20:00 110 07/18/16 20:00 98.6 109 18 130/74 100 07/18/16 19:00 110 07/18/16 18:00 95 07/18/16 17:00 90 07/18/16 16:00 93 07/18/16 15:00 07/18/16 15:00 93 07/18/16 14:49 16 07/18/16 14:00 104 07/18/16 13:00 101 07/18/16 12:00 93 07/18/16 11:00 106 07/18/16 11:00 07/18/16 10:00 98 I/O 07/18/16 07/18/16 07/18/16 07/19/16 07/19/16 07/19/16 07:00 15:00 23:00 07:00 15:00 23:00 Intake Total 2013 ml 670 ml Output Total 650 ml Balance 2014 ml 20 ml IV Total 2013 ml 350 ml TPN/PPN 253 ml Lipid 67 ml Output Urine Total 650 ml # Voids 3 # Bowel Movements 0 0 Result Diagram: 07/19/16 0647 07/19/16 0647 Objective Remarks GENERAL: Patient is in no acute distress. HEENT: Mouth is dry. I cannot appreciate any sores or lesions in her mouth. Uvula midline. CARDIOVASCULAR: Normal rate and regular rhythm without murmurs, gallops, or rubs. RESPIRATORY: Good respiratory efforts. Right mid to lower lung baez with markedly diminished breath sounds. Rest of lung baez clear to auscultation. No wheezing. GASTROINTESTINAL: Abdomen soft, non-tender, non-distended. Normal active bowel sounds MUSCULOSKELETAL: Extremities without cyanosis, or edema. NEURO: Alert & Oriented x4 to person, place, time, situation. Moves all ext x4 but generally weak. PSYCH: Appropriate mood and affect. Procedures Ultrasound-guided thoracentesis 07/13/16 Right chest tube placed 01/09/17 A/P Problem List: (1) PNA (pneumonia) ICD Code: J18.9 Status: Acute (2) Pleural effusion, right ICD Code: J90 Status: Acute (3) Breast CA ICD Code: C50.919 Status: Acute (4) Pneumothorax, right ICD Code: J93.9 Status: Acute Assessment and Plan 61 Y/O female with: Right large pleural effusion in advanced breast cancer patient: Patient is status post ultrasound-guided thoracentesis on 07/13/16. Fluid culture unremarkable. Pleurodesis considered but chest tube fell out. Consider again when fluid reaccumulates. Right lung pneumothorax after thoracentesis: Probably due to noncompliant lungs. Chest tube placed on 07/13/16. Fell out on 07/15/16. Chest X-ray shows stable small pneumothorax. Interventional radiology following. Dysphagia: Patient reports inability to eat, drink, swallow pills due to pain and phlegm in her throat. ENT was consulted. Barium swallow did not reveal aspiration but there is severe oropharyngeal dysphasia and possible esophageal dysphagia per the speech therapist evaluation. - GI following. NPO for now. PPN over the weekend. Plan for EGD early next week when the patient is more stable. Intermittent Tachycardia: Patient with history of heart palpitations. She takes Metoprolol for this but cannot take now due to inability to swallow. EKG is sinus. IV beta blockers as needed. Need alternate methods such as feeding tube. Awaiting for GI to do endoscopy. Patient may need a feeding tube. Possible pneumonia: Cannot rule out consolidation in the right lower lobe. Continue Rocephin and azithromycin for possible pneumonia given her immunocompromise state. Sputum and blood cultures are unremarkable. Breast CA, Metastatic and advanced. S/p Mastectomy, Chemo and radiation w/ recurrence and metastatic disease in 2014. Apprec[address] Dr. Lama following. Palliative care following. Prognosis is poor but patient wants to continue with aggressive care. Hypoglycemia: Treatment per hypoglycemia protocol Hypertension: Currently normotensive, on Lopressor 12.5 mg daily with holding parameters. Vasotec when necessary DVT Prophylaxis: SCD/Teds. Sakina Travis MD Jul 19, 2016 09:05
--- NOTE | 2016-07-19 17:12 | HHI.GIFU ---
GI Follow-up Note Consult Follow-up Subjective: Patient laying in bed comfortably,very weak, still difficulty swallowing.Had tachycardia yesterday , states was secondary hyoscyamine. On ppn .Discussed about peg tube placement, endoscopic vs IR/ Also discussed about temporary ngt-not an option .We will reevaluate in am and see if she is stable for procedure Objective: PHYSICAL EXAMINATION: Vitals signs stable No fever Vital Signs Date Time Temp Pulse Resp B/P Pulse Ox O2 Delivery O2 Flow Rate FiO2 07/19/16 12:00 98.5 87 24 135/85 99 07/19/16 11:59 100 Nasal Cannula 2.00 07/19/16 10:00 95 HEENT: Pupils round and reactive to light; normocephalic; atraumatic; no jaundice. Throat is clear, very frail NECK: Neck is supple, no JVD, no lymphadenopathy. CHEST: decreased air entry bilateral CARDIAC: Regular rate and rhythm with no murmur gallop or rubs. ABDOMEN: Soft, nondistended, nontender; no hepatosplenomegaly; bowel sounds are present in all four quadrants. EXTREMITIES: No clubbing, cyanosis, or edema. SKIN: Normal; no rash; no jaundice. MARINE TOWER OPERATOR: No focal deficits; alert and oriented times three. Available Data (labs, X- Rays, Procedues) : Laboratory Tests Test 07/18/16 07/18/16 07/19/16 00:01 07:30 06:47 Blood Gas Puncture Site LT RADIAL Blood Gas Patient Temperature 98.6 Blood Gas HCO3 28 mmol/L Blood Gas Base Excess 3.8 mmol/L Blood Gas Oxygen Saturation 97 % Arterial Blood pH 7.39 Arterial Blood Partial 48 mmHg Pressure CO2 Arterial Blood Partial 152 mmHg Pressure O2 Arterial Blood Oxygen Content 15.6 Vol % Arterial Blood 1.1 % Carboxyhemoglobin Arterial Blood Methemoglobin 1.1 % Blood Gas Hemoglobin 11.2 G/DL Oxygen Delivery Device NASAL CANNULA Blood Gas Liter Flow 2 L/M White Blood Count 3.7 TH/MM3 3.3 TH/MM3 Red Blood Count 4.01 MIL/MM3 3.76 MIL/MM3 Hemoglobin 11.7 GM/DL 11.2 GM/DL Hematocrit 35.4 % 33.0 % Mean Corpuscular Volume 88.2 FL 87.8 FL Mean Corpuscular Hemoglobin 29.2 PG 29.8 PG Mean Corpuscular Hemoglobin 33.1 % 33.9 % Concent Red Cell Distribution Width 16.2 % 16.3 % Platelet Count 300 TH/MM3 275 TH/MM3 Mean Platelet Volume 7.4 FL 7.6 FL Sodium Level 137 MEQ/L 135 MEQ/L Potassium Level 3.6 MEQ/L 4.1 MEQ/L Chloride Level 97 MEQ/L 97 MEQ/L Carbon Dioxide Level 30.5 MEQ/L 32.6 MEQ/L Anion Gap 10 MEQ/L 5 MEQ/L Blood Urea Nitrogen 3 MG/DL 9 MG/DL Creatinine 0.49 MG/DL 0.44 MG/DL Estimat Glomerular Filtration 155 ML/MIN 175 ML/MIN Rate Random Glucose 91 MG/DL 89 MG/DL Calcium Level 9.4 MG/DL 9.3 MG/DL ASSESSMENT/PLAN: failure to thrive need peg for intermediate nutritional support advanced breast cancer -refusing hospice Recommendations npo after midnight possible peg in am if stable we will reevaluate in am pt/inr, cbc alternatives ir or ngt discussed with patient, would like endoscopic placement of peg tube if possible It was a pleasure seeing Rosie Ricardo. Thank you for this consult. Entered by: Maria Elena Cotton MD Jul 19, 2016 17:12
[2016-07-19] MEDS: CLINIMIX E 4.25/5 1000 mL- </= 42 mls/hr IV SCH ×3 (20:29)
[2016-07-19] MEDS: FAT EMULSION 20% INJ 250 ML (@10 mls/hr) IV SCH (20:29)
[2016-07-19] MEDS: AZITHROMYCIN INJ 500 MG in SODIUM CHLOR 0.9% 250 ML INJ 250 ML IV SCH (20:31)
[2016-07-19] MEDS: cefTRIAXone INJ 1,000 MG in SODIUM CHLORIDE 0.9% INJ 100 ML IV SCH (20:31)
[2016-07-20] VITALS (18 sets, daily range): BP systolic 123–155; BP diastolic 67–88; PULSE 81–109; RESP 13–30; TEMP 97.4–98.9; O2SAT 95–100
[2016-07-20] MEDS: DEXTROSE 5% IN WATE 1000ML INJ 1,000 ML IV SCH ×3 (03:07→23:16)
[2016-07-20] MEDS: HYDROmorphone HCL PF 1 MG/ML VIAL IV PRN ×5 (04:09→20:38)
[2016-07-20] MEDS: RESP: ALBUTEROL 2.5 MG/IPRATROPIUM 0.5 MG NEB (PRN) NEB ×2 (05:14→12:04)
[2016-07-20 07:00] LABS: PROTHROMBIN TIME - PATIENT 11.1 SEC (9.8-11.6)
[2016-07-20] MEDS: INSULIN ASPART SUPPLEMENTAL SCALE SQ SCH ×4 (07:00→20:42)
[2016-07-20 07:13] LABS: BICARBONATE 31.8 MEQ/L (21.0-32.0); POTASSIUM 3.7 MEQ/L (3.5-5.1)
[2016-07-20 07:18] LABS: AUTOMATED NEUTROPHIL # 2.4 TH/MM3 (1.8-7.7); BASOPHIL # 0.1 TH/MM3 (0-0.2); BASOPHIL % 1.9 % (0.0-2.0); EOSINOPHIL # 0.3 TH/MM3 (0-0.4); EOSINOPHIL % 8.2 % (0.0-4.0); HEMATOCRIT 33.9 % (35.0-46.0); HEMO FLAGS DIFF FINAL; LYMPH % 13.7 % (9.0-44.0); LYMPHOCYTE # 0.5 TH/MM3 (1.0-4.8); MEAN CELL VOLUME 87.8 FL (80.0-100.0); MEAN CORPUSCULAR HEMOGLOBIN 29.1 PG (27.0-34.0); MEAN CORPUSCULAR HGB CONC 33.1 % (32.0-36.0); MONO % 10.9 % (0.0-8.0); NEUT % 65.3 % (16.0-70.0); PLATELET COUNT 284 TH/MM3 (150-450); RED BLOOD COUNT 3.86 MIL/MM3 (4.00-5.30); WHITE BLOOD COUNT 3.7 TH/MM3 (4.0-11.0)
[2016-07-20] MEDS: SODIUM CHLORIDE 0.9% FLUSH 5 ML FLUSH FLUSH SCH ×2 (09:00→20:14)
[2016-07-20] MEDS: METOPROLOL SUCCINATE 25 MG EXTENDED RELEASE TAB PO SCH (09:00)
--- NOTE | 2016-07-20 11:20 | PD.PROCEDR ---
GI Procedure REFERRING PHYSICIAN Sha PROCEDURE PERFORMED EGD with dilation and PEG placement INDICATION FOR PROCEDURE Dysphagia failure to thrive PROCEDURE: The procedure, risks and benefits were discussed with Ms. Ricardo and informed consent was obtained. Anesthesia sedated her with Diprivan. She was placed in the left lateral decubitus position. EGD: The Pentax videoscope was introduced through the oropharynx and advanced to the second portion of the duodenum under direct visualization. Retroflexion was performed in the stomach. FINDINGS: The esophagus there was a significant upper esophageal web I was unable to traverse it and so this was dilated with an 11 mm savory dilator over a guidewire and then a 15 mm savory dilator there was a small rent noted post dilation otherwise the esophagus was unremarkable The stomach this appeared to be unremarkable and within normal limits Following the evaluation of the stomach and the duodenum the stomach was insufflated with air and the area of PEG placement was identified through indentation and transillumination the area was prepped and draped in usual fashion 5 cc of lidocaine were injected locally a small incision was made then an Angiocath was passed into the stomach through which a guidewire was passed this was retrieved with the scope into that a PEG tube was attached and pulled into place and thereafter secured in usual fashion The patient tolerated procedure well and there are no immediate complications The duodenum this was unremarkable ESTIMATED BLOOD LOSS: None SPECIMENS REMOVED: None COMPLICATIONS: None IMPRESSION: Esophageal web post-dilation Successful PEG placement PLAN: As per protocol Andrew Carranza MD Jul 20, 2016 11:20
[2016-07-20] MEDS ORDERED: methylPREDNISolone SOD SUCC 125 MG/2 ML VIAL IV PUSH STA (12:31)
[2016-07-20] MEDS ORDERED: RESP: RACEPINEPHRINE 2.25% 0.5 ML NEB ONE (12:34)
--- NOTE | 2016-07-20 12:40 | PD.ONC.PN ---
Subjective Subjective Remarks Afebrile overnight. patient in severe stridor when I walk in the room. She states she feels like mucous is stuck in her throat and has been so since waking up from anesthesia when she had EGD + dilation and PEG tube placement this AM. A halicat has been called. Objective Data Date Time Temp Pulse Resp B/P Pulse Ox O2 Delivery O2 Flow Rate FiO2 07/20/16 11:34 93 16 113/64 100 07/20/16 11:24 89 16 98/53 100 07/20/16 11:15 98.1 88 16 97/57 100 07/20/16 10:00 101 07/20/16 09:00 91 07/20/16 08:00 91 07/20/16 07:00 98.6 92 20 123/82 100 07/20/16 07:00 102 07/20/16 05:22 100 Nasal Cannula 07/20/16 05:00 85 07/20/16 04:02 105 07/20/16 03:00 100 07/20/16 03:00 100 155/88 100 07/20/16 02:00 109 07/20/16 01:00 95 07/20/16 00:00 91 07/19/16 23:00 98.6 91 120/77 97 07/19/16 23:00 91 07/19/16 22:00 100 07/19/16 21:58 18 07/19/16 21:00 87 07/19/16 20:00 101 07/19/16 19:00 97 07/19/16 19:00 98.8 97 153/91 98 07/19/16 18:04 100 21 07/19/16 18:00 90 07/19/16 17:00 99 07/19/16 16:00 98.8 88 20 141/86 100 07/19/16 16:00 89 07/19/16 15:00 90 07/19/16 13:00 97 07/20/16 07/20/16 07/20/16 07:00 15:00 23:00 Intake Total 120 ml 450 ml Output Total 350 ml Balance -230 ml 450 ml Result Diagram: 07/20/16 0530 07/20/16 0530 Laboratory Results Laboratory Tests Test 07/20/16 05:30 White Blood Count 3.7 TH/MM3 Red Blood Count 3.86 MIL/MM3 Hemoglobin 11.2 GM/DL Hematocrit 33.9 % Mean Corpuscular Volume 87.8 FL Mean Corpuscular Hemoglobin 29.1 PG Mean Corpuscular Hemoglobin 33.1 % Concent Red Cell Distribution Width 16.0 % Platelet Count 284 TH/MM3 Mean Platelet Volume 7.8 FL Neutrophils (%) (Auto) 65.3 % Lymphocytes (%) (Auto) 13.7 % Monocytes (%) (Auto) 10.9 % Eosinophils (%) (Auto) 8.2 % Basophils (%) (Auto) 1.9 % Neutrophils # (Auto) 2.4 TH/MM3 Lymphocytes # (Auto) 0.5 TH/MM3 Monocytes # (Auto) 0.4 TH/MM3 Eosinophils # (Auto) 0.3 TH/MM3 Basophils # (Auto) 0.1 TH/MM3 CBC Comment DIFF FINAL Differential Comment Prothrombin Time 11.1 SEC Prothromb Time International 1.0 RATIO Ratio Sodium Level 135 MEQ/L Potassium Level 3.7 MEQ/L Chloride Level 96 MEQ/L Carbon Dioxide Level 31.8 MEQ/L Anion Gap 7 MEQ/L Blood Urea Nitrogen 13 MG/DL Creatinine 0.49 MG/DL Estimat Glomerular Filtration 155 ML/MIN Rate Random Glucose 84 MG/DL Calcium Level 9.1 MG/DL Administered Medications Medications (Trade) Dose Ordered Sig/Mitch Route PRN Reason Start Time Stop Time Status Last Admin Dose Admin Ceftriaxone Sodium 1000 mg/ Sodium Chloride 100 ml @ 200 mls/hr Q24H IV 07/13/16 21:00 07/19/16 20:31 Azithromycin/ Sodium Chloride (Zithromax Inj/ NS 250 ml Inj) 250 ml @ 250 mls/hr Q24H IV 07/13/16 21:00 07/19/16 20:31 IV Flush (NS Flush) 2 ml BID FLUSH 07/12/16 21:00 07/20/16 09:00 Ondansetron HCl (Zofran Inj) 4 mg Q6H PRN IVP NAUSEA OR VOMITING 07/12/16 21:00 07/13/16 00:30 Hydromorphone HCl (Dilaudid Pf Inj) 1 mg Q3H PRN IV Pain 6-10 07/12/16 21:00 07/20/16 07:24 Guaifenesin (Robitussin Liq) 200 mg Q4H PRN PO cough 07/13/16 10:30 07/14/16 01:08 Metoprolol Succinate 12.5 mg 12.5 mg DAILY PO 07/14/16 09:00 07/14/16 09:37 Dextrose (D5W 1000 ml Inj) 1,000 ml @ 100 mls/hr Q10H IV 07/13/16 22:15 07/17/16 14:58 Metoprolol Tartrate 2.5 mg 2.5 mg Q6H PRN IV PUSH Sustained RAPID HEART RATE>120 07/17/16 10:15 07/18/16 23:36 Multivitamins 10 ml/Folic Acid 1 mg/Amino Acids/ Electrolytes/ Dextrose 1,010.2 ml @ 42 mls/hr Q24H IV 07/17/16 20:00 07/19/16 20:29 Fat Emulsion Intravenous (Liposyn Iii 20% Inj) 250 ml @ 10 mls/hr Q24H IV 07/17/16 20:00 07/19/16 20:29 Objective Remarks GENERAL: Middle aged male, sitting up in bed, severe stridor. SKIN: Warm and dry. HEAD: Normocephalic. EYES: No injection or drainage. NECK: Supple, trachea midline. CARDIOVASCULAR: Regular rate and rhythm RESPIRATORY: +stridor. + accessory muscle use 100% on 2L O2 via NC. diminished at bases. GASTROINTESTINAL: Abdomen soft, non-tender, nondistended. EXTREMITIES: No cyanosis NEUROLOGICAL: awake and alert. Assessment/Plan Assessment 61y/o with stage IV breast cancer, dysphagia Plan 1. dysphagia: s/p PEG tube placement this AM. currently on TPN 2. stridor: unclear etiology. I d/w Dr. Travis who is on his way to evaluate. May be mucous plug. patient will be transferred to [facility] [place]. Laquita Burton Jul 20, 2016 12:40
--- NOTE | 2016-07-20 12:52 | HHI.PR ---
Subjective Remarks I was notified the patient went into respiratory distress with stridor shortly after returning from GI lab. On my evaluation, she is on a nonrebreather with audible stridor. She indicates that she does want to be intubated if needed. Objective Vitals Vital Signs Date Time Temp Pulse Resp B/P Pulse Ox O2 Delivery O2 Flow Rate FiO2 07/20/16 11:34 93 16 113/64 100 07/20/16 11:24 89 16 98/53 100 07/20/16 11:15 98.1 88 16 97/57 100 07/20/16 10:00 101 07/20/16 09:00 91 07/20/16 08:00 91 07/20/16 07:00 98.6 92 20 123/82 100 07/20/16 07:00 102 07/20/16 05:22 100 Nasal Cannula 07/20/16 05:00 85 07/20/16 04:02 105 07/20/16 03:00 100 07/20/16 03:00 100 155/88 100 07/20/16 02:00 109 07/20/16 01:00 95 07/20/16 00:00 91 07/19/16 23:00 98.6 91 120/77 97 07/19/16 23:00 91 07/19/16 22:00 100 07/19/16 21:58 18 07/19/16 21:00 87 07/19/16 20:00 101 07/19/16 19:00 97 07/19/16 19:00 98.8 97 153/91 98 07/19/16 18:04 100 21 07/19/16 18:00 90 07/19/16 17:00 99 07/19/16 16:00 98.8 88 20 141/86 100 07/19/16 16:00 89 07/19/16 15:00 90 07/19/16 13:00 97 I/O 07/19/16 07/19/16 07/19/16 07/20/16 07/20/16 07/20/16 07:00 15:00 23:00 07:00 15:00 23:00 Intake Total 670 ml 461 ml 120 ml 450 ml Output Total 650 ml 200 ml 350 ml Balance 20 ml 261 ml -230 ml 450 ml Intake Oral 0 ml 120 ml IV Total 350 ml TPN/PPN 253 ml 347 ml Lipid 67 ml 114 ml Other 450 ml Output Urine Total 650 ml 200 ml 350 ml # Bowel Movements 0 0 Result Diagram: 07/20/1652907/20/16529 Objective Remarks GENERAL: Patient in respiratory distress with stridor and tachypnea, shallow breathing HEENT: Mouth is dry CARDIOVASCULAR: Rate in the 120s and regular rhythm without murmurs, gallops, or rubs. RESPIRATORY: Poor respiratory efforts. Marked stridor. No air movement appreciated on the right mid to lower lung baez GASTROINTESTINAL: Abdomen soft, non-distended. Normal active bowel sounds MUSCULOSKELETAL: Extremities without cyanosis, or edema. NEURO: Alert & Oriented PSYCH: Anxious. Procedures Ultrasound-guided thoracentesis 07/13/16 Right chest tube placed 01/09/17 A/P Problem List: (1) PNA (pneumonia) ICD Code: J18.9 Status: Acute (2) Pleural effusion, right ICD Code: J90 Status: Acute (3) Breast CA ICD Code: C50.919 Status: Acute (4) Pneumothorax, right ICD Code: J93.9 Status: Acute Assessment and Plan 61 Y/O female with with advanced breast cancer admitted with large right pleural effusion. Today 07/20/16 patient went into respiratory failure after EGD , dilation, and PEG placement. Acute hypoxemic respiratory failure with stridor today 07/20/16: Patient underwent EGD today. She developed respiratory distress and stridor afterwards. Currently in significant distress. - Order stat chest x-ray, ABG, racemic P and Solu-Medrol. - Stat consult to appliance assembler, discussed with Dr. Dorantes. - Stat transfer to ICU. - Start BiPAP Right large pleural effusion in advanced breast cancer patient: Patient is status post ultrasound-guided thoracentesis on 07/13/16. Fluid culture unremarkable. Pleurodesis considered but chest tube fell out. Consider again when fluid reaccumulates. Right lung pneumothorax after thoracentesis: Probably due to noncompliant lungs. Chest tube placed on 07/13/16. Fell out on 07/15/16. Pneumothorax has been stable on chest x-ray. Stat repeat chest x-ray today. Dysphagia: Patient reports inability to eat, drink, swallow pills due to pain and phlegm in her throat. ENT was consulted. Barium swallow did not reveal aspiration but there is severe oropharyngeal dysphasia and possible esophageal dysphagia per the speech therapist evaluation. - GI following. s/p EGD, dilation and PEG placement. TPN per GI. Intermittent Tachycardia: Patient with history of heart palpitations. She takes Metoprolol for this but cannot take now due to inability to swallow. EKG is sinus. IV beta blockers as needed until able to use PEG Possible pneumonia: Cannot rule out consolidation in the right lower lobe. Continue Rocephin and azithromycin for possible pneumonia given her immunocompromise state. Sputum and blood cultures are unremarkable. Breast CA, Metastatic and advanced. S/p Mastectomy, Chemo and radiation w/ recurrence and metastatic disease in 2015. Apprec[address] Dr. Lama following. Palliative care following. Prognosis is poor but patient wants to continue with aggressive care. Hypoglycemia: Treatment per hypoglycemia protocol Hypertension: Currently normotensive, on Lopressor 12.5 mg daily with holding parameters. Vasotec when necessary DVT Prophylaxis: SCD/Teds. Has not been on chemoprophylaxis due to procedures. DW Dr. Dorantse and Oncology PA, Sakina Hoyt MD Jul 20, 2016 12:52
[2016-07-20 13:09] LABS: BLOOD GAS BASE EXCESS 1.8 mmol/L (-2-2); BLOOD GAS CARBOXYHEMOGLOBIN 1.2 % (0-4); BLOOD GAS HCO3 26 mmol/L (22-26); BLOOD GAS METHEMOGLOBIN 1.2 % (0-2); BLOOD GAS O2 HGB SATURATION 97 % (90-100); BLOOD GAS OXYGEN CONTENT 16.9 Vol % (12.0-20.0); BLOOD GAS PCO2 46 mmHg (38-42); BLOOD GAS PO2 171 mmHg (61-120); BLOOD GAS TOTAL HGB 12.2 G/DL (12.0-16.0); CRITICAL VALUE NO; DRAW SITE LT BRACHIAL; FIO2 24 %; LITER FLOW 1 L/M; NUMBER OF ARTERIAL PUNCTURES 1; OXYGEN DEVICE NASAL CANNULA; STAT YES; TEMP CORR TO 98.6
--- NOTE | 2016-07-20 13:23 | RADRPT ---
EXAM DATE/TIME: 07/20/2016 12:37 [facility] COMPARISON: CHEST SINGLE AP, July 17, 2016, 23:35. INDICATIONS : Respiratory distress post esophageal dilatation and peg tube placement. MEDICAL HISTORY : Carcinoma, breast. SURGICAL HISTORY : Mastectomy, right. ENCOUNTER: Subsequent ACUITY: 1 day PAIN SCORE: 0/10 LOCATION: Bilateral chest FINDINGS: [id number] is in good position. Persistent consolidative changes are seen in the right base. Lucía y small right pneumothorax persists. The left lung is clear. The heart and pulmonary vascularity ar e normal. CONCLUSION: Stable chest with persistent consolidative changes in the right base. A trace right pneumothorax Juan Diego Shipman MD FACR on July 20, 2016 at 13:16 Board Certified Radiologist. This report was verified electronically.
[2016-07-20] MEDS ORDERED: DO NOT ADM ANY ANTICOAGULANT DRUGS XX PRN (13:45)
--- NOTE | 2016-07-20 14:15 | HHI.HCPN ---
Reason for visit a. To assist with evaluation and management of symptoms including:dyspnea, pain. b. To assist medical decision maker(s) with: better understanding of current medical conditions; weighing benefits/burdens of medical treatment options; making medical treatment decisions. Subjective/Interval History INTERVAL NOTE: The patient elected to have the PEG tube placed, and that was accomplished this morning. She developed dyspnea and stridor after she got back to her room, but that has improved after steroids and racemic epinephrine. The patient continues to complain of pain at the prior left chest tube site, and she just received some hydromorphone. She is being moved up to the [facility] [place] at this time. She confirms that she wants to remain FULL CODE and would accept intubation and mechanical ventilation at this time. Discussed with after the patient was being transferred, see below. As per initial consultation note 07/17/16 by Catherine Mancini MD: Patient is a 61-year-old who is a past medical history of stage IV breast cancer that dates back to 2009. Patient underwent right lumpectomy and sentinel lymph node biopsy and had a subsequent right mastectomy. Patient also received chemotherapy for which she cannot complete due to neuropathy. She did get postoperative radiation. On 03/10/15 she was found to have local recurrence with involvement of the neck, supraclavicular area, sternum, right first rib. Tumor is positive for ER and IA receptors. Patient has had various hormonal therapies. Patient's came to the hospital due to increasing increasing phlegm in the back or referral and was unable to take pain medication and unable to eat or drink. Patient went to the ER was found to have a large right pleural effusion. Patient receive ultrasound-guided thoracentesis on 07/13/2016 removing 1600 cc of fluid. Patient has a small pneumothorax and underwent a chest tube. Patient has lung reexpansion but still unable to swallow. Continue to have extensive mucus in the back of her throat patient cannot eat, drink or swallow pills. Oncology was consulted. Dr. Lama has spoken with patient. Oncology feels that given disease refractory to treatment there is little time remaining however patient wants full CPR and will probably G-tube placement. Palliative care was consulted to discuss goals of care. On my visit, pt having some episodes of tachcardia, and dyspnea. Pain "spasms of the left shoulder" sharp pain at neck and right shoulder; but her main complaint is dyspnea and tachycardia. Pt still alert and oriented and have capacity. Pt's and sister at bedside. Explain role of palliative care and to review goals of care. Pt have pain on the right shoulder that is sharp, but more recently more pain in the left shoulder that feel like spasm. Her main concern right now is the dyspnea, and tachycardia. It is anticipated she will go to ICU. Pt had a visit from Dr. Fox, and she understands that her prognosis, performance status score is poor. She maintains she still want to continue any and all treatment if possible, "Because I am not ready to give up. " Sister confirms that the family "believes in miracles, and that we have praying warriors all over." Pt would consider hospice, but would want it mainly for support at home. She would want to maintain DNR, hospital services, and revoke should she get stable or stronger for treatment. Given that right now her vitals is unstable, I revisited code status. She understands that if she declines more she would need to be on the ventilator, possibly shock or cpr/ acls. Reviewed that it does not treat the cancer, which is the utlimate course of her decline, pleural effusion, fatigue etc. Family at bedside acknowledge that. She still reaffirms "I told Dr. Fox my answer" and maintains Full code. Reviewed trach and peg. She is unsure about the trach, and how long she would want to be in life support if they cannot wean her off. She says she would want peg tube feedings for current inability to swallow and the icu. Family/friend interactions After the patient was taken by the staff out of the room to go to the [facility] [place], the patient's , Byron Ricardo, and I stayed in the room and discussed her status and prognosis at great length. He was able to share that his first suffered a hemorrhage from a cerebral aneurysm at the age of 40, and he made the decision to withdraw her from life support to allow natural after a few days. He understands that his the patient is asking for aggressive care and may end up on the ventilator at some point, and that he may be faced with a similar difficult choice; he says "I know and I will address it then." He does want to be comfortable. We spoke at length about hospice services and how they may be able to help at home, as he feels that the patient will definitely want to be back home as soon as possible. She has not "been ready" for hospice services yet. . Advance Directives Living Will: Never completed Health Care Surrogate: Never completed Durable Power of Balance Assembler: Never completed Objective Vital Signs Date Time Temp Pulse Resp B/P Pulse Ox O2 Delivery O2 Flow Rate FiO2 07/20/16 12:30 97.4 104 30 154/86 100 07/20/16 11:34 93 16 113/64 100 07/20/16 11:24 89 16 98/53 100 07/20/16 11:15 98.1 88 16 97/57 100 07/20/16 10:00 101 07/20/16 09:00 91 07/20/16 08:00 91 07/20/16 07:00 98.6 92 20 123/82 100 07/20/16 07:00 102 07/20/16 05:22 100 Nasal Cannula 07/20/16 05:00 85 07/20/16 04:02 105 07/20/16 03:00 100 07/20/16 03:00 100 155/88 100 07/20/16 02:00 109 07/20/16 01:00 95 07/20/16 00:00 91 07/19/16 23:00 98.6 91 120/77 97 07/19/16 23:00 91 07/19/16 22:00 100 07/19/16 21:58 18 07/19/16 21:00 87 07/19/16 20:00 101 07/19/16 19:00 97 07/19/16 19:00 98.8 97 153/91 98 07/19/16 18:04 100 21 07/19/16 18:00 90 07/19/16 17:00 99 07/19/16 16:00 98.8 88 20 141/86 100 07/19/16 16:00 89 07/19/16 15:00 90 Intake & Output 07/20/16 07/20/16 07:00 19:00 Intake Total 120 ml 450 ml Output Total 350 ml Balance -230 ml 450 ml Intake Oral 120 ml Other 450 ml Output Urine Total 350 ml Physical Exam CONSTITUTIONAL/GENERAL: This is a frail, thin lady, mildly dyspneic and very fatigued/week. ENT: Hearing grossly normal. Nose without bleeding or purulent drainage. NECK: Trachea midline. Supple, nontender. No palpable thyroid enlargement or nodularity. CARDIOVASCULAR: Tachycardia, no murmurs, gallops, or rubs. No JVD. Peripheral pulses symmetric. RESPIRATORY/CHEST: decreased breath sound bilaterally. GASTROINTESTINAL: Abdomen soft, non-tender, nondistended. No hepato-splenomegaly , or palpable masses. No guarding. Bowel sounds present. GENITOURINARY: Without palpable bladder distension. Olivera catheter in place. MUSCULOSKELETAL: Extremities without clubbing, cyanosis, or edema. tenderness at neck and shoulders. LYMPHATICS: No palpable cervical or supraclavicular adenopathy. NEUROLOGICAL: Awake and alert, but profoundly weak.Follows commands. Moves all extremities. PSYCHIATRIC: no apparent hallucinations or other psychotic thought process. Has been intermittently anxious due to dyspnea. . Diagnostic Tests Laboratory Laboratory Tests Test 07/18/16 07/18/16 07/19/16 07/20/16 00:01 07:30 06:47 05:30 Blood Gas Puncture Site LT RADIAL Blood Gas Patient Temperature 98.6 Blood Gas HCO3 28 mmol/L (22-26) Blood Gas Base Excess 3.8 mmol/L (-2-2) Blood Gas Oxygen Saturation 97 % (90-100) Arterial Blood pH 7.39 (7.380-7.420) Arterial Blood Partial 48 mmHg (38-42) Pressure CO2 Arterial Blood Partial 152 mmHg Pressure O2 (61-120) Arterial Blood Oxygen Content 15.6 Vol % (12.0-20.0) Arterial Blood 1.1 % (0-4) Carboxyhemoglobin Arterial Blood Methemoglobin 1.1 % (0-2) Blood Gas Hemoglobin 11.2 G/DL (12.0-16.0) Oxygen Delivery Device NASAL CANNULA Blood Gas Liter Flow 2 L/M White Blood Count 3.7 TH/MM3 3.3 TH/MM3 3.7 TH/MM3 (4.0-11.0) (4.0-11.0) (4.0-11.0) Red Blood Count 4.01 MIL/MM3 3.76 MIL/MM3 3.86 MIL/MM3 (4.00-5.30) (4.00-5.30) (4.00-5.30) Hemoglobin 11.7 GM/DL 11.2 GM/DL 11.2 GM/DL (11.6-15.3) (11.6-15.3) (11.6-15.3) Hematocrit 35.4 % 33.0 % 33.9 % (35.0-46.0) (35.0-46.0) (35.0-46.0) Mean Corpuscular Volume 88.2 FL 87.8 FL 87.8 FL (80.0-100.0) (80.0-100.0) (80.0-100.0) Mean Corpuscular Hemoglobin 29.2 PG 29.8 PG 29.1 PG (27.0-34.0) (27.0-34.0) (27.0-34.0) Mean Corpuscular Hemoglobin 33.1 % 33.9 % 33.1 % Concent (32.0-36.0) (32.0-36.0) (32.0-36.0) Red Cell Distribution Width 16.2 % 16.3 % 16.0 % (11.6-17.2) (11.6-17.2) (11.6-17.2) Platelet Count 300 TH/MM3 275 TH/MM3 284 TH/MM3 (150-450) (150-450) (150-450) Mean Platelet Volume 7.4 FL 7.6 FL 7.8 FL (7.0-11.0) (7.0-11.0) (7.0-11.0) Sodium Level 137 MEQ/L 135 MEQ/L 135 MEQ/L (136-145) (136-145) (136-145) Potassium Level 3.6 MEQ/L 4.1 MEQ/L 3.7 MEQ/L (3.5-5.1) (3.5-5.1) (3.5-5.1) Chloride Level 97 MEQ/L 97 MEQ/L 96 MEQ/L (98-107) (98-107) (98-107) Carbon Dioxide Level 30.5 MEQ/L 32.6 MEQ/L 31.8 MEQ/L (21.0-32.0) (21.0-32.0) (21.0-32.0) Anion Gap 10 MEQ/L (5-15) 5 MEQ/L (5-15) 7 MEQ/L (5-15) Blood Urea Nitrogen 3 MG/DL (7-18) 9 MG/DL (7-18) 13 MG/DL (7-18) Creatinine 0.49 MG/DL 0.44 MG/DL 0.49 MG/DL (0.50-1.00) (0.50-1.00) (0.50-1.00) Estimat Glomerular Filtration 155 ML/MIN 175 ML/MIN 155 ML/MIN Rate (>89) (>89) (>89) Random Glucose 91 MG/DL 89 MG/DL 84 MG/DL (74-106) (74-106) (74-106) Calcium Level 9.4 MG/DL 9.3 MG/DL 9.1 MG/DL (8.5-10.1) (8.5-10.1) (8.5-10.1) Neutrophils (%) (Auto) 65.3 % (16.0-70.0) Lymphocytes (%) (Auto) 13.7 % (9.0-44.0) Monocytes (%) (Auto) 10.9 % (0.0-8.0) Eosinophils (%) (Auto) 8.2 % (0.0-4.0) Basophils (%) (Auto) 1.9 % (0.0-2.0) Neutrophils # (Auto) 2.4 TH/MM3 (1.8-7.7) Lymphocytes # (Auto) 0.5 TH/MM3 (1.0-4.8) Monocytes # (Auto) 0.4 TH/MM3 (0-0.9) Eosinophils # (Auto) 0.3 TH/MM3 (0-0.4) Basophils # (Auto) 0.1 TH/MM3 (0-0.2) CBC Comment DIFF FINAL Differential Comment Prothrombin Time 11.1 SEC (9.8-11.6) Prothromb Time International 1.0 RATIO Ratio Test 1/30/17 12:53 Blood Gas Puncture Site LT BRACHIAL Blood Gas Patient Temperature 98.6 Blood Gas HCO3 26 mmol/L (22-26) Blood Gas Base Excess 1.8 mmol/L (-2-2) Blood Gas Oxygen Saturation 97 % (90-100) Arterial Blood pH 7.38 (7.380-7.420) Arterial Blood Partial 46 mmHg (38-42) Pressure CO2 Arterial Blood Partial 171 mmHg Pressure O2 (61-120) Arterial Blood Oxygen Content 16.9 Vol % (12.0-20.0) Arterial Blood 1.2 % (0-4) Carboxyhemoglobin Arterial Blood Methemoglobin 1.2 % (0-2) Blood Gas Hemoglobin 12.2 G/DL (12.0-16.0) Oxygen Delivery Device NASAL CANNULA Blood Gas Liter Flow 1 L/M Blood Gas Inspired Oxygen 24 % Result Diagram: 07/20/16 0530 07/20/16 0530 Imaging Last Impressions Chest X-Ray 07/17/16 0000 Signed Impressions: Service Date/Time: Sunday, July 17, 2016 23:35 - CONCLUSION: No significant change has occurred. Small right-sided pneumothorax. Danny Hamm MD Modified Barium Swallow 07/16/16 0000 Signed Impressions: Service Date/Time: June 00:00 - CONCLUSION: Administration or aspiration visualized. Galina Judge MD Thoracentesis Ultrasound 07/13/16 0000 Signed Impressions: Service Date/Time: Wednesday, July 13, 2016 15:45 - CONCLUSION: Uncomplicated ultrasound guided thoracentesis. Juan Diego Shipman MD FACR Procedures Thoracentesis Left chest tube PEG tube 07/20/16 . Assessment and Plan Disease Oriented Problem List: (1) Breast CA (2) Pleural effusion, right (3) PNA (pneumonia) (4) Pneumothorax Symptom Scale: (1) Fatigue 0-10 Scale: Unable to quantify Comment: cancer burden (2) Dyspnea 0-10 Scale: Unable to quantify (3) Pain 0-10 Scale: Unable to quantify (shoulders and neck, mets to right shoulder, neck. left should described as spasm.) Pertinent Non-Medical Issues Psychosocial: , retired RN Spiritual: Spirituality has been very important for her. Legal: The patient has capacity for decision making at this time. When she loses that capacity, her will be the proxy decision-maker. Ethical issues impacting care: None. . Important Contacts : Byron Ricardo [phone] . Prognosis 61 year old with recurrent stage IV breast CA, complicated by pleural effusion, inability to swallow, weakness, pain, tachycardia, pneumothorax. She is terminal, and has been declining steadily in recent weeks. She is appropriate for hospice services when her goals transition to being comfort oriented. . Code Status: Full Code Plan * FULL CODE * DECISION-MAKING: The patient has capacity to make medical decisions; when she is unable to make decisions, her is the decision making proxy. * GOALS: The patient has chosen to continue aggressive care at this time, including full code, mechanical ventilation, etc. * After the patient was taken by the staff out of Room 245 to go to the [facility] [place], the patient's , Byron Ricardo, and I stayed in the room and discussed her status and prognosis at great length. He was able to share that his first suffered a hemorrhage from a cerebral aneurysm at the age of 40, and he made the decision to withdraw her from life support to allow natural after a few days. He understands that his (the patient) is asking for aggressive care and may end up on the ventilator at some point in the near future, and that he may be faced with a similar difficult choice; he says "I know and I will address it then." He does want her to be comfortable. We spoke at length about hospice services and how they may be able to help at home, as he feels that the patient will definitely want to be back home as soon as possible. She has not "been ready" for hospice services yet. * SYMPTOMS: She has hydromorphone for pain and dyspnea * Palliative Care will continue to follow the patient during this hospitalization. Time Spent Total Floor Time (mins): 42 Face to Face Time (mins): 25 >50% Counseling/Coord of Care: Yes (d/w RN) Attestation To help prompt me to consider important information that might be impacting today's encounter and assessment, information from prior notes written by myself or my colleagues may have been "brought forward" into today's note. My signature on this note, however, is an attestation that I personally performed the exam, history, and/or decision-making noted today, and, unless otherwise indicated, the interactions with patient, family, and staff as well as the review of records all occurred today. I also attest that the listed assessment and stated plan reflect my best clinical judgment today based on the combination of historical information, prior notes, and today's exam/ interactions. When time spent is documented, it refers only to time spent today by the signer, or if indicated, combined time spent today by collaborating physician/nurse practitioner. Dayan Mcadams MD Jul 20, 2016 14:15
[2016-07-20] MEDS ORDERED: PROPOFOL 200 MG/20 ML AMP IV ONE (14:55)
[2016-07-20] MEDS ORDERED: CHLORHEXIDINE GLUCONATE 2 % 1 PACK (2 CLOTHS)(extra cloths) TOP PRN (16:15)
[2016-07-20] MEDS: AZITHROMYCIN INJ 500 MG in SODIUM CHLOR 0.9% 250 ML INJ 250 ML IV SCH (20:37)
[2016-07-20] MEDS: cefTRIAXone INJ 1,000 MG in SODIUM CHLORIDE 0.9% INJ 100 ML IV SCH (20:37)
[2016-07-20] MEDS: FAT EMULSION 20% INJ 250 ML (@10 mls/hr) IV SCH (20:38)
[2016-07-20] MEDS: CLINIMIX E 4.25/5 1000 mL- </= 42 mls/hr IV SCH ×3 (20:38)
[2016-07-21] VITALS (11 sets, daily range): BP systolic 118–159; BP diastolic 63–77; PULSE 73–106; RESP 14–28; TEMP 97.4–98.6; O2SAT 100
[2016-07-21] MEDS: HYDROmorphone HCL PF 1 MG/ML VIAL IV PRN ×8 (00:26→23:59)
[2016-07-21] MEDS: CHLORHEXIDINE GLUCONATE 2 % 1 PACK (2 CLOTHS)(taper/protocol) TOP SCH (04:00)
[2016-07-21 04:23] LABS: HEMATOCRIT 33.2 % (35.0-46.0); MEAN CORPUSCULAR HEMOGLOBIN 29.7 PG (27.0-34.0); MEAN CORPUSCULAR HGB CONC 34.6 % (32.0-36.0); PLATELET COUNT 292 TH/MM3 (150-450); RED BLOOD COUNT 3.86 MIL/MM3 (4.00-5.30); RED CELL DISTRIBUTION WIDTH 15.7 % (11.6-17.2); REVIEW FLAG FINAL; WHITE BLOOD COUNT 4.9 TH/MM3 (4.0-11.0)
[2016-07-21 04:49] LABS: BICARBONATE 31.4 MEQ/L (21.0-32.0); POTASSIUM 4.1 MEQ/L (3.5-5.1)
[2016-07-21] MEDS: INSULIN ASPART SUPPLEMENTAL SCALE SQ SCH ×4 (07:00→21:00)
[2016-07-21] MEDS: DEXTROSE 5% IN WATE 1000ML INJ 1,000 ML IV SCH (07:09)
[2016-07-21] MEDS: SODIUM CHLORIDE 0.9% FLUSH 5 ML FLUSH FLUSH SCH ×2 (07:20→20:15)
[2016-07-21] MEDS: METOPROLOL SUCCINATE 25 MG EXTENDED RELEASE TAB PO SCH (07:20)
--- NOTE | 2016-07-21 09:42 | HHI.PR ---
Subjective Remarks Patient reports that she is feeling much better today. Breathing comfortably. No cough. Still reports having thick mucus and unable to swallow it but think it's improved. Objective Vitals Vital Signs Date Time Temp Pulse Resp B/P Pulse Ox O2 Delivery O2 Flow Rate FiO2 07/21/16 08:00 93 07/21/16 08:00 98.3 77 24 141/69 100 07/21/16 07:50 20 07/21/16 06:00 87 07/21/16 04:00 98.0 78 19 149/74 100 07/21/16 04:00 78 07/21/16 02:00 73 07/21/16 00:00 98.6 78 14 159/77 100 07/21/16 00:00 78 07/20/16 22:00 81 07/20/16 20:00 88 07/20/16 20:00 98.7 88 22 141/75 100 07/20/16 19:59 95 Nasal Cannula 2.00 07/20/16 18:00 82 07/20/16 16:00 98.9 88 13 141/67 96 07/20/16 16:00 88 07/20/16 12:30 97.4 104 30 154/86 100 07/20/16 11:34 93 16 113/64 100 07/20/16 11:24 89 16 98/53 100 07/20/16 11:15 98.1 88 16 97/57 100 07/20/16 10:00 101 I/O 07/20/16 07/20/16 07/20/16 07/21/16 07/21/16 07/21/16 07:00 15:00 23:00 07:00 15:00 23:00 Intake Total 120 ml 450 ml 1307 ml 358 ml Output Total 350 ml 1225 ml 500 ml Balance -230 ml 450 ml 82 ml -142 ml Intake Oral 120 ml IV Total 29 ml TPN/PPN 1036 ml 289 ml Lipid 242 ml 69 ml Other 450 ml Output Urine Total 350 ml 1225 ml 500 ml Result Diagram: 07/21/16 0400 07/21/16 0400 Imaging Last Impressions Chest X-Ray 07/20/16 0000 Signed Impressions: Service Date/Time: Wednesday, July 20, 2016 12:37 - CONCLUSION: Stable chest with persistent consolidative changes in the right base. A trace right pneumothorax Juan Diego Shipman MD FACR Modified Barium Swallow 07/16/16 0000 Signed Impressions: Service Date/Time: June 00:00 - CONCLUSION: Administration or aspiration visualized. Galina Judge MD Thoracentesis Ultrasound 07/13/16 0000 Signed Impressions: Service Date/Time: Wednesday, July 13, 2016 15:45 - CONCLUSION: Uncomplicated ultrasound guided thoracentesis. Juan Diego Shipman MD FACR Objective Remarks GENERAL: Patient in no acute distress. HEENT: Mouth is dry CARDIOVASCULAR: Normal rate and regular rhythm without murmurs, gallops, or rubs. RESPIRATORY: Respiratory effort is fair. Right mid to lower lung baez are markedly diminished. Otherwise rest of the lung baez are clear to auscultation. No wheezing. GASTROINTESTINAL: Abdomen soft, non-distended. Normal active bowel sounds MUSCULOSKELETAL: Extremities without cyanosis, or edema. NEURO: Alert & Oriented . Normal speech PSYCH: Appropriate mood and affect. Procedures Ultrasound-guided thoracentesis 07/13/16 Right chest tube placed 01/09/17 A/P Problem List: (1) PNA (pneumonia) ICD Code: J18.9 Status: Acute (2) Pleural effusion, right ICD Code: J90 Status: Acute (3) Breast CA ICD Code: C50.919 Status: Acute (4) Pneumothorax, right ICD Code: J93.9 Status: Acute Assessment and Plan 61 Y/O female with with advanced breast cancer admitted with large right pleural effusion. Acute hypoxemic respiratory failure with stridor today 07/20/16: Resolved. Patient underwent EGD on 07/20/16. She developed respiratory distress and stridor afterwards. The patient was treated with racemic epinephrine and IV Solu-Medrol. Her condition quickly improved. Chest -ray and blood gas were stable. Right large pleural effusion in advanced breast cancer patient: Patient is status post ultrasound-guided thoracentesis on 07/13/16. Fluid culture unremarkable. Pleurodesis considered but chest tube fell out. Consider again when fluid reaccumulates. Right lung pneumothorax after thoracentesis: Probably due to noncompliant lungs. Chest tube placed on 07/13/16. Fell out on 07/15/16. Pneumothorax has been stable on chest x-ray. Dysphagia: Patient reports inability to eat, drink, swallow pills due to pain and phlegm in her throat. ENT was consulted. Barium swallow did not reveal aspiration but there is severe oropharyngeal dysphasia and possible esophageal dysphagia per the speech therapist evaluation. - GI following. s/p EGD, dilation and PEG placement. Patient was on TPN. - DC TPN and start tube feeding. Intermittent Tachycardia: Patient with history of heart palpitations. Resume metoprolol via G-tube Possible pneumonia: Cannot rule out consolidation in the right lower lobe. Continue Rocephin given her immunocompromise state. Sputum and blood cultures are unremarkable. DC Azithromycin. Plan to DC Rocephin in a couple of days and monitor off antibiotics. Breast CA, Metastatic and advanced. S/p Mastectomy, Chemo and radiation w/ recurrence and metastatic disease in 2014. Apprec[address] Lama following. Palliative care following. Prognosis is poor but patient wants to continue with aggressive care. Hypertension: Currently normotensive, on Lopressor 12.5 mg daily with holding parameters. Vasotec when necessary DVT Prophylaxis: SCD/Teds. Has not been on chemoprophylaxis due to procedures. Discharge Planning Transfer to floor with tele. Sakina Travis MD Jul 21, 2016 09:42
--- NOTE | 2016-07-21 12:03 | HHI.HCPN ---
Reason for visit a. To assist with evaluation and management of symptoms including:dyspnea, pain. b. To assist medical decision maker(s) with: better understanding of current medical conditions; weighing benefits/burdens of medical treatment options; making medical treatment decisions. Subjective/Interval History INTERVAL NOTE: The patient elected to have the PEG tube placed yesterday. Jevity has been initiated, and the TPN is being tapered and discontinued. She definitely feels better now, seems to be tolerating the artificial nutrition so far, and there is a plan to transfer her back out of the intensive care unit. Her goals clearly remain aggressive, with full CODE STATUS, artificial nutrition , and a primary goal to get back home. She remains afebrile. Chest x-ray yesterday revealed no real change, persistent right base consolidation. As per initial consultation note 07/17/16 by Catherine Mancini MD: Patient is a 61-year-old who is a past medical history of stage IV breast cancer that dates back to 2009. Patient underwent right lumpectomy and sentinel lymph node biopsy and had a subsequent right mastectomy. Patient also received chemotherapy for which she cannot complete due to neuropathy. She did get postoperative radiation. On 03/10/15 she was found to have local recurrence with involvement of the neck, supraclavicular area, sternum, right first rib. Tumor is positive for ER and MO receptors. Patient has had various hormonal therapies. Patient's came to the hospital due to increasing increasing phlegm in the back or referral and was unable to take pain medication and unable to eat or drink. Patient went to the ER was found to have a large right pleural effusion. Patient receive ultrasound-guided thoracentesis on 07/13/2016 removing 1600 cc of fluid. Patient has a small pneumothorax and underwent a chest tube. Patient has lung reexpansion but still unable to swallow. Continue to have extensive mucus in the back of her throat patient cannot eat, drink or swallow pills. Oncology was consulted. Dr. Lama has spoken with patient. Oncology feels that given disease refractory to treatment there is little time remaining however patient wants full CPR and will probably G-tube placement. Palliative care was consulted to discuss goals of care. On my visit, pt having some episodes of tachcardia, and dyspnea. Pain "spasms of the left shoulder" sharp pain at neck and right shoulder; but her main complaint is dyspnea and tachycardia. Pt still alert and oriented and have capacity. Pt's and sister at bedside. Explain role of palliative care and to review goals of care. Pt have pain on the right shoulder that is sharp, but more recently more pain in the left shoulder that feel like spasm. Her main concern right now is the dyspnea, and tachycardia. It is anticipated she will go to ICU. Pt had a visit from Dr. Fox, and she understands that her prognosis, performance status score is poor. She maintains she still want to continue any and all treatment if possible, "Because I am not ready to give up. " Sister confirms that the family "believes in miracles, and that we have praying warriors all over." Pt would consider hospice, but would want it mainly for support at home. She would want to maintain DNR, hospital services, and revoke should she get stable or stronger for treatment. Given that right now her vitals is unstable, I revisited code status. She understands that if she declines more she would need to be on the ventilator, possibly shock or cpr/ acls. Reviewed that it does not treat the cancer, which is the utlimate course of her decline, pleural effusion, fatigue etc. Family at bedside acknowledge that. She still reaffirms "I told Dr. Fox my answer" and maintains Full code. Reviewed trach and peg. She is unsure about the trach, and how long she would want to be in life support if they cannot wean her off. She says she would want peg tube feedings for current inability to swallow and the icu. Advance Directives Living Will: Never completed Health Care Surrogate: Never completed Durable Power of Tip Inserter: Never completed Objective Vital Signs Date Time Temp Pulse Resp B/P Pulse Ox O2 Delivery O2 Flow Rate FiO2 07/21/16 11:05 18 07/21/16 10:00 80 07/21/16 09:50 100 Nasal Cannula 2.00 07/21/16 08:00 93 07/21/16 08:00 98.3 77 24 141/69 100 07/21/16 06:00 87 07/21/16 04:00 98.0 78 19 149/74 100 07/21/16 04:00 78 07/21/16 02:00 73 07/21/16 00:00 98.6 78 14 159/77 100 07/21/16 00:00 78 07/20/16 22:00 81 07/20/16 20:00 88 07/20/16 20:00 98.7 88 22 141/75 100 07/20/16 19:59 95 Nasal Cannula 2.00 07/20/16 18:00 82 07/20/16 16:00 98.9 88 13 141/67 96 07/20/16 16:00 88 07/20/16 12:30 97.4 104 30 154/86 100 Physical Exam CONSTITUTIONAL/GENERAL: This is a frail, thin lady, appears moderately weak. ENT: Hearing grossly normal. Nose without bleeding or purulent drainage. NECK: Trachea midline. Supple, nontender. No palpable thyroid enlargement or nodularity. CARDIOVASCULAR: Tachycardia, no murmurs, gallops, or rubs. No JVD. Peripheral pulses symmetric. RESPIRATORY/CHEST: decreased breath sound bilaterally. GASTROINTESTINAL: Abdomen soft, non-tender, nondistended. No hepato-splenomegaly , or palpable masses. No guarding. Bowel sounds present. GENITOURINARY: Without palpable bladder distension. Olivera catheter in place. MUSCULOSKELETAL: Extremities without clubbing, cyanosis, or edema. tenderness at neck and shoulders. LYMPHATICS: No palpable cervical or supraclavicular adenopathy. NEUROLOGICAL: Awake and alert, but profoundly weak.Follows commands. Moves all extremities. PSYCHIATRIC: no apparent hallucinations or other psychotic thought process. Has been intermittently anxious due to dyspnea. . Diagnostic Tests Laboratory Laboratory Tests Test 07/19/16 07/20/16 07/20/16 07/20/16 06:47 05:30 12:53 13:39 White Blood Count 3.3 TH/MM3 3.7 TH/MM3 (4.0-11.0) (4.0-11.0) Red Blood Count 3.76 MIL/MM3 3.86 MIL/MM3 (4.00-5.30) (4.00-5.30) Hemoglobin 11.2 GM/DL 11.2 GM/DL (11.6-15.3) (11.6-15.3) Hematocrit 33.0 % 33.9 % (35.0-46.0) (35.0-46.0) Mean Corpuscular Volume 87.8 FL 87.8 FL (80.0-100.0) (80.0-100.0) Mean Corpuscular Hemoglobin 29.8 PG 29.1 PG (27.0-34.0) (27.0-34.0) Mean Corpuscular Hemoglobin 33.9 % 33.1 % Concent (32.0-36.0) (32.0-36.0) Red Cell Distribution Width 16.3 % 16.0 % (11.6-17.2) (11.6-17.2) Platelet Count 275 TH/MM3 284 TH/MM3 (150-450) (150-450) Mean Platelet Volume 7.6 FL 7.8 FL (7.0-11.0) (7.0-11.0) Sodium Level 135 MEQ/L 135 MEQ/L (136-145) (136-145) Potassium Level 4.1 MEQ/L 3.7 MEQ/L (3.5-5.1) (3.5-5.1) Chloride Level 97 MEQ/L 96 MEQ/L (98-107) (98-107) Carbon Dioxide Level 32.6 MEQ/L 31.8 MEQ/L (21.0-32.0) (21.0-32.0) Anion Gap 5 MEQ/L (5-15) 7 MEQ/L (5-15) Blood Urea Nitrogen 9 MG/DL (7-18) 13 MG/DL (7-18) Creatinine 0.44 MG/DL 0.49 MG/DL (0.50-1.00) (0.50-1.00) Estimat Glomerular Filtration 175 ML/MIN 155 ML/MIN Rate (>89) (>89) Random Glucose 89 MG/DL 84 MG/DL (74-106) (74-106) Calcium Level 9.3 MG/DL 9.1 MG/DL (8.5-10.1) (8.5-10.1) Neutrophils (%) (Auto) 65.3 % (16.0-70.0) Lymphocytes (%) (Auto) 13.7 % (9.0-44.0) Monocytes (%) (Auto) 10.9 % (0.0-8.0) Eosinophils (%) (Auto) 8.2 % (0.0-4.0) Basophils (%) (Auto) 1.9 % (0.0-2.0) Neutrophils # (Auto) 2.4 TH/MM3 (1.8-7.7) Lymphocytes # (Auto) 0.5 TH/MM3 (1.0-4.8) Monocytes # (Auto) 0.4 TH/MM3 (0-0.9) Eosinophils # (Auto) 0.3 TH/MM3 (0-0.4) Basophils # (Auto) 0.1 TH/MM3 (0-0.2) CBC Comment DIFF FINAL Differential Comment Prothrombin Time 11.1 SEC (9.8-11.6) Prothromb Time International 1.0 RATIO Ratio Blood Gas Puncture Site LT BRACHIAL Blood Gas Patient Temperature 98.6 Blood Gas HCO3 26 mmol/L (22-26) Blood Gas Base Excess 1.8 mmol/L (-2-2) Blood Gas Oxygen Saturation 97 % (90-100) Arterial Blood pH 7.38 (7.380-7.420) Arterial Blood Partial 46 mmHg (38-42) Pressure CO2 Arterial Blood Partial 171 mmHg Pressure O2 (61-120) Arterial Blood Oxygen Content 16.9 Vol % (12.0-20.0) Arterial Blood 1.2 % (0-4) Carboxyhemoglobin Arterial Blood Methemoglobin 1.2 % (0-2) Blood Gas Hemoglobin 12.2 G/DL (12.0-16.0) Oxygen Delivery Device NASAL CANNULA Blood Gas Liter Flow 1 L/M Blood Gas Inspired Oxygen 24 % Nasal Screen MRSA (PCR) NEGATIVE (NEGATIVE) Test 07/21/16 04:00 White Blood Count 4.9 TH/MM3 (4.0-11.0) Red Blood Count 3.86 MIL/MM3 (4.00-5.30) Hemoglobin 11.5 GM/DL (11.6-15.3) Hematocrit 33.2 % (35.0-46.0) Mean Corpuscular Volume 86.0 FL (80.0-100.0) Mean Corpuscular Hemoglobin 29.7 PG (27.0-34.0) Mean Corpuscular Hemoglobin 34.6 % Concent (32.0-36.0) Red Cell Distribution Width 15.7 % (11.6-17.2) Platelet Count 292 TH/MM3 (150-450) Mean Platelet Volume 7.4 FL (7.0-11.0) Sodium Level 133 MEQ/L (136-145) Potassium Level 4.1 MEQ/L (3.5-5.1) Chloride Level 96 MEQ/L (98-107) Carbon Dioxide Level 31.4 MEQ/L (21.0-32.0) Anion Gap 6 MEQ/L (5-15) Blood Urea Nitrogen 13 MG/DL (7-18) Creatinine 0.45 MG/DL (0.50-1.00) Estimat Glomerular Filtration 171 ML/MIN Rate (>89) Random Glucose 110 MG/DL (74-106) Calcium Level 9.6 MG/DL (8.5-10.1) Result Diagram: 07/21/16 0400 07/21/16 0400 Imaging Last Impressions Chest X-Ray 07/20/16 0000 Signed Impressions: Service Date/Time: Wednesday, July 20, 2016 12:37 - CONCLUSION: Stable chest with persistent consolidative changes in the right base. A trace right pneumothorax Juan Diego Shipman MD FACR Modified Barium Swallow 07/16/16 0000 Signed Impressions: Service Date/Time: June 00:00 - CONCLUSION: Administration or aspiration visualized. Galina Judge MD Thoracentesis Ultrasound 07/13/16 0000 Signed Impressions: Service Date/Time: Wednesday, July 13, 2016 15:45 - CONCLUSION: Uncomplicated ultrasound guided thoracentesis. Juan Diego Shipman MD FACR Procedures Thoracentesis Left chest tube PEG tube 07/20/16 . Assessment and Plan Disease Oriented Problem List: (1) Breast CA (2) Pleural effusion, right (3) PNA (pneumonia) (4) Pneumothorax Symptom Scale: (1) Fatigue 0-10 Scale: Unable to quantify Comment: cancer burden (2) Dyspnea 0-10 Scale: Unable to quantify (3) Pain 0-10 Scale: Unable to quantify (shoulders and neck, mets to right shoulder, neck. left should described as spasm.) Pertinent Non-Medical Issues Psychosocial: , retired RN Spiritual: Spirituality has been very important for her. Legal: The patient has capacity for decision making at this time. When she loses that capacity, her will be the proxy decision-maker. Ethical issues impacting care: None. . Important Contacts : Byron Ricardo [phone] . Prognosis 61 year old with recurrent stage IV breast CA, complicated by pleural effusion, inability to swallow, weakness, pain, tachycardia, pneumothorax. She is terminal, and has been declining steadily in recent weeks. She is appropriate for hospice services when her goals transition to being comfort oriented. . Code Status: Full Code Plan * FULL CODE * DECISION-MAKING: The patient has capacity to make medical decisions; when she is unable to make decisions, her is the decision making proxy. * GOALS: The patient has chosen to continue aggressive care at this time, including full code, mechanical ventilation, etc. * On 07/20/16, I spoke at length with the patient's , Byron Ricardo ; he was able to share that his first suffered a hemorrhage from a cerebral aneurysm at the age of 40, and he made the decision to withdraw her from life support to allow natural after a few days. He understands that his ( the patient) is asking for aggressive care and may end up on the ventilator at some point in the near future, and that he may be faced with a similar difficult choice; he says "I know and I will address it then." He does want her to be comfortable. We spoke at length about hospice services and how they may be able to help at home, as he feels that the patient will definitely want to be back home as soon as possible. She has not "been ready" for hospice services yet. * SYMPTOMS: She has hydromorphone for pain and dyspnea * Palliative Care will continue to follow the patient during this hospitalization. Time Spent Total Floor Time (mins): 36 Face to Face Time (mins): 19 >50% Counseling/Coord of Care: Yes Attestation To help prompt me to consider important information that might be impacting today's encounter and assessment, information from prior notes written by myself or my colleagues may have been "brought forward" into today's note. My signature on this note, however, is an attestation that I personally performed the exam, history, and/or decision-making noted today, and, unless otherwise indicated, the interactions with patient, family, and staff as well as the review of records all occurred today. I also attest that the listed assessment and stated plan reflect my best clinical judgment today based on the combination of historical information, prior notes, and today's exam/ interactions. When time spent is documented, it refers only to time spent today by the signer, or if indicated, combined time spent today by collaborating physician/nurse practitioner. Dayan Mcadams MD Jul 21, 2016 12:03
[2016-07-21] MEDS: cefTRIAXone INJ 1,000 MG in SODIUM CHLORIDE 0.9% INJ 100 ML IV SCH (21:30)
[2016-07-21] MEDS: SODIUM CHLORIDE 0.9% FLUSH 5 ML FLUSH FLUSH PRN (21:31)
--- NOTE | 2016-07-21 21:44 | PD.ONC.PN ---
Subjective Subjective Remarks tolerating tube feeding well Objective Data Date Time Temp Pulse Resp B/P Pulse Ox O2 Delivery O2 Flow Rate FiO2 07/21/16 16:00 97.4 101 18 138/70 100 07/21/16 15:11 98 07/21/16 14:03 20 07/21/16 12:00 83 07/21/16 12:00 98.0 83 28 127/63 100 07/21/16 10:00 80 07/21/16 09:50 100 Nasal Cannula 2.00 07/21/16 08:00 93 07/21/16 08:00 98.3 77 24 141/69 100 07/21/16 06:00 87 07/21/16 04:00 98.0 78 19 149/74 100 07/21/16 04:00 78 07/21/16 02:00 73 07/21/16 00:00 98.6 78 14 159/77 100 07/21/16 00:00 78 07/20/16 22:00 81 07/21/16 07/21/16 07/21/16 07:00 15:00 23:00 Intake Total 358 ml 120 ml 749 ml Output Total 500 ml 200 ml Balance -142 ml -80 ml 749 ml Result Diagram: 07/21/16 0400 07/21/16 0400 Laboratory Results Laboratory Tests Test 07/21/16 04:00 White Blood Count 4.9 TH/MM3 Red Blood Count 3.86 MIL/MM3 Hemoglobin 11.5 GM/DL Hematocrit 33.2 % Mean Corpuscular Volume 86.0 FL Mean Corpuscular Hemoglobin 29.7 PG Mean Corpuscular Hemoglobin 34.6 % Concent Red Cell Distribution Width 15.7 % Platelet Count 292 TH/MM3 Mean Platelet Volume 7.4 FL Sodium Level 133 MEQ/L Potassium Level 4.1 MEQ/L Chloride Level 96 MEQ/L Carbon Dioxide Level 31.4 MEQ/L Anion Gap 6 MEQ/L Blood Urea Nitrogen 13 MG/DL Creatinine 0.45 MG/DL Estimat Glomerular Filtration 171 ML/MIN Rate Random Glucose 110 MG/DL Calcium Level 9.6 MG/DL Administered Medications Medications (Trade) Dose Ordered Sig/Mitch Route PRN Reason Start Time Stop Time Status Last Admin Dose Admin Ceftriaxone Sodium/Sodium Chloride (Rocephin Inj/NS Inj) 100 ml @ 200 mls/hr Q24H IV 07/13/16 21:00 07/20/16 20:37 IV Flush (NS Flush) 2 ml BID FLUSH 07/12/16 21:00 07/21/16 20:15 Ondansetron HCl (Zofran Inj) 4 mg Q6H PRN IVP NAUSEA OR VOMITING 07/12/16 21:00 07/13/16 00:30 Hydromorphone HCl (Dilaudid Pf Inj) 1 mg Q3H PRN IV Pain 6-10 07/12/16 21:00 07/21/16 20:09 Guaifenesin (Robitussin Liq) 200 mg Q4H PRN PO cough 07/13/16 10:30 07/14/16 01:08 Metoprolol Succinate (Toprol Xl) 12.5 mg DAILY PO 07/14/16 09:00 07/21/16 07:20 Miscellaneous Information Patient in critical care unit? Ass... [id number] XX 07/20/16 16:15 07/20/16 16:15 Chlorhexidine Gluconate (Chlorhexidine 2% Cloth) 3 pack DAILY@04 TOP 07/21/16 04:00 07/25/16 04:01 07/21/16 04:00 Objective Remarks GENERAL: gaunt and voice barely audible. SKIN: Warm and dry. HEAD: Normocephalic. EYES: No scleral icterus. No injection or drainage. NECK: right neck infiltrated with tumor LYMPHATIC: right supraclavicular adenopathy CARDIOVASCULAR: Regular rate and rhythm without murmurs. RESPIRATORY: Breath sounds equal bilaterally. No accessory muscle use. GASTROINTESTINAL: Abdomen soft, non-tender, nondistended. g tube in place. EXTREMITIES: No cyanosis, or edema. MUSCULOSKELETAL: Adequate muscle tone. NEUROLOGICAL: No obvious focal deficit. Awake, alert, and oriented x3. PSYCHIATRIC: Appropriate mood and affect depressed. Assessment/Plan Assessment 1: patient has progressive tumor over chest wall, neck and involving nodes. I reviewed current situation with and that fact that she will not be a candidate for further chemotherapy unless there is a significant improvement in performance status which is unlikely in spited of G tube feedings. I again spoke to her about hospice and CPR and she still wants everything done and is not open to supportive care and no cpr Plan once she has been converted to g tube feedings would send home with visiting nurses or discharge to skilled nursing if care can not be done at home. hospice care center would be appropriate but she is not willing. understands situation and accepting but she is not. Dung Lama MD Jul 21, 2016 21:44
--- NOTE | 2016-07-21 23:46 | HHI.GIFU ---
Subjective Remarks Patient sitting in bed has minimal pain at PEG site otherwise unchanged Objective Vitals I&O Vital Signs Date Time Temp Pulse Resp B/P Pulse Ox O2 Delivery O2 Flow Rate FiO2 07/21/16 16:00 97.4 101 18 138/70 100 07/21/16 15:11 98 07/21/16 14:03 20 07/21/16 12:00 83 07/21/16 12:00 98.0 83 28 127/63 100 07/21/16 10:00 80 07/21/16 09:50 100 Nasal Cannula 2.00 07/21/16 08:00 93 07/21/16 08:00 98.3 77 24 141/69 100 07/21/16 06:00 87 07/21/16 04:00 98.0 78 19 149/74 100 07/21/16 04:00 78 07/21/16 02:00 73 07/21/16 00:00 98.6 78 14 159/77 100 07/21/16 00:00 78 I/O 07/20/16 07/20/16 07/20/16 07/21/16 07/21/16 07/21/16 07:00 15:00 23:00 07:00 15:00 23:00 Intake Total 120 ml 450 ml 1307 ml 358 ml 120 ml 749 ml Output Total 350 ml 1225 ml 500 ml 200 ml 200 ml Balance -230 ml 450 ml 82 ml -142 ml -80 ml 549 ml Intake Oral 120 ml IV Total 29 ml Tube Feeding 149 ml TPN/PPN 1036 ml 289 ml 404 ml Lipid 242 ml 69 ml 96 ml Tube Irrigant 120 ml 100 ml Other 450 ml Output Urine Total 350 ml 1225 ml 500 ml 200 ml 200 ml Laboratory Laboratory Tests Test 07/21/16 04:00 White Blood Count 4.9 Red Blood Count 3.86 Hemoglobin 11.5 Hematocrit 33.2 Mean Corpuscular Volume 86.0 Mean Corpuscular Hemoglobin 29.7 Mean Corpuscular Hemoglobin 34.6 Concent Red Cell Distribution Width 15.7 Platelet Count 292 Mean Platelet Volume 7.4 Sodium Level 133 Potassium Level 4.1 Chloride Level 96 Carbon Dioxide Level 31.4 Anion Gap 6 Blood Urea Nitrogen 13 Creatinine 0.45 Estimat Glomerular Filtration 171 Rate Random Glucose 110 Calcium Level 9.6 Physical Exam CHEST: Chest is clear to auscultation and percussion. CARDIAC: Regular rate and rhythm with no murmur gallop or rubs. ABDOMEN: Soft, nondistended, nontender; no hepatosplenomegaly; bowel sounds are present in all four quadrants. EXTREMITIES: No clubbing, cyanosis, or edema. STOCK PITCHER: No focal deficits; alert and oriented times three. Assessment and Plan Plan ASSESSMENT: - Dysphagia, Anorexia. Pt has had ongoing issues with anorexia/weight loss, but started having difficulty with swallowing last week- unable to pass liquids/ solids past upper esophageal area. She underwent a modified barium swallow (07/16/16)----> severe oropharyngeal dysphagia, possible esophageal dysphagia. Lingual control was severely reduced for oral bolus cohesion, formation and posterior propulsion. Nasal regurgitation of thin liquids evident. Significant swallow delay observed, once swallow response occurred, laryngeal elevation, tongue base retraction and epiglottic inversion were porr/absent significant stasis present in the pyriform sinuses after each bolus presentation, limited upper esophageal sphincter opening. Though no penetration or aspiration was evidence, patient at high risk for aspiration from spillover into airway after swallow. Speech therapy has recommended that the patient remain NPO with GI consultation for possible esophageal dilation and bypass feeding for nutritional supplementation with continued speech therapy to address and improve laryngeal elevation and hyoid excursion. Oncology requesting PEG tube. D/W patient and family, but she is currently being transferred to unit for tachycardia/iv medication that needs monitoring and has mild resp. insufficiency. Will watch over weekend and consider EGD +/- Dilatation, PEG tube placement next week once medically stable. - Tachycardia, order to tx to monitored bed for medication, per primary - Resp. Insuff. with large pleural effusion, ptx. S/P thoracentesis, ct, plan is for pleurodesis once able. - Stage IV breast cancer. Dx in 2009 and underwent right lumpectomy, lymph node biopsy and then subsequent right mastectomy with postoperative radiation. She was started on chemotherapy, but could not complete this secondary to neuropathy. She then was found to have a recurrence in February of 2015 and treated with hormonal therapy. She was recently found to have progression of disease and the plan was to start gemcitabine, but she ended up in the hospital with inability to take po and shortness of breath. S PLAN: -Status post PEG placement tolerating tube feeds - PPI - Monitor labs and continue with current supportive care -We will sign off Andrew Carranza MD Jul 21, 2016 23:46
[2016-07-22] VITALS (8 sets, daily range): BP systolic 116–141; BP diastolic 60–84; PULSE 78–96; RESP 17–20; TEMP 97.5–98.5; O2SAT 92–100
[2016-07-22] MEDS: SODIUM CHLORIDE 0.9% FLUSH 5 ML FLUSH FLUSH PRN ×3 (00:33→06:23)
[2016-07-22] MEDS: HYDROmorphone HCL PF 1 MG/ML VIAL IV PRN ×7 (03:23→21:27)
[2016-07-22] MEDS: CHLORHEXIDINE GLUCONATE 2 % 1 PACK (2 CLOTHS)(taper/protocol) TOP SCH (03:57)
[2016-07-22] MEDS: INSULIN ASPART SUPPLEMENTAL SCALE SQ SCH ×4 (03:57→21:00)
[2016-07-22 04:23] LABS: HEMATOCRIT 33.2 % (35.0-46.0); MEAN CELL VOLUME 86.9 FL (80.0-100.0); MEAN CORPUSCULAR HEMOGLOBIN 28.9 PG (27.0-34.0); MEAN CORPUSCULAR HGB CONC 33.2 % (32.0-36.0); PLATELET COUNT 290 TH/MM3 (150-450); RED BLOOD COUNT 3.82 MIL/MM3 (4.00-5.30); RED CELL DISTRIBUTION WIDTH 15.7 % (11.6-17.2); REVIEW FLAG FINAL; WHITE BLOOD COUNT 3.5 TH/MM3 (4.0-11.0)
[2016-07-22 04:38] LABS: BICARBONATE 33.9 MEQ/L (21.0-32.0); POTASSIUM 3.7 MEQ/L (3.5-5.1)
[2016-07-22] MEDS: METOPROLOL SUCCINATE 25 MG EXTENDED RELEASE TAB PO SCH (09:28)
[2016-07-22] MEDS: SODIUM CHLORIDE 0.9% FLUSH 5 ML FLUSH FLUSH SCH ×2 (09:29→21:28)
--- NOTE | 2016-07-22 16:28 | HHI.PR ---
Subjective Remarks Patient reports that she is feeling okay today. No change in swallowing status. No increased in shortness of breath. I discussed with the patient and her at bedside at length. She is now considering hospice. She wants to think about it and will let me know tomorrow about which hospice she would like to consult with. Objective Vitals Vital Signs Date Time Temp Pulse Resp B/P Pulse Ox O2 Delivery O2 Flow Rate FiO2 07/22/16 12:00 98.5 86 19 123/69 94 07/22/16 08:00 91 07/22/16 08:00 97.9 95 17 141/72 100 07/22/16 04:00 97.6 78 20 120/60 94 07/22/16 00:00 98.4 82 20 122/66 92 07/21/16 20:00 97.8 85 18 118/66 100 07/21/16 20:00 106 I/O 07/21/16 07/21/16 07/21/16 07/22/16 07/22/16 07/22/16 07:00 15:00 23:00 07:00 15:00 23:00 Intake Total 358 ml 120 ml 749 ml 640 ml 294 ml 297 ml Output Total 500 ml 200 ml 400 ml 650 ml 400 ml Balance -142 ml -80 ml 349 ml -10 ml -106 ml 297 ml Intake Oral 0 ml 0 ml IV Total 80 ml Tube Feeding 149 ml 500 ml 144 ml 297 ml TPN/PPN 289 ml 404 ml Lipid 69 ml 96 ml Tube Irrigant 120 ml 100 ml 150 ml Other 60 ml Output Urine Total 500 ml 200 ml 400 ml 650 ml 400 ml # Bowel Movements 0 0 2 Result Diagram: 07/22/16 0345 07/22/16 0345 Imaging Last Impressions Chest X-Ray 07/20/16 0000 Signed Impressions: Service Date/Time: Wednesday, July 20, 2016 12:37 - CONCLUSION: Stable chest with persistent consolidative changes in the right base. A trace right pneumothorax Juan Diego Shipman MD FACR Modified Barium Swallow 07/16/16 0000 Signed Impressions: Service Date/Time: June 00:00 - CONCLUSION: Administration or aspiration visualized. Galina Judge MD Thoracentesis Ultrasound 07/13/16 0000 Signed Impressions: Service Date/Time: Wednesday, July 13, 2016 15:45 - CONCLUSION: Uncomplicated ultrasound guided thoracentesis. Juan Diego Shipman MD FACR Objective Remarks GENERAL: Patient in no acute distress. HEENT: Mouth is dry CARDIOVASCULAR: Normal rate and regular rhythm without murmurs, gallops, or rubs. RESPIRATORY: Respiratory effort is fair. Right mid to lower lung baez are markedly diminished. Otherwise rest of the lung baez are clear to auscultation. No wheezing. GASTROINTESTINAL: Abdomen soft, non-distended. Normal active bowel sounds MUSCULOSKELETAL: Extremities without cyanosis, or edema. NEURO: Alert & Oriented . Normal speech PSYCH: Appropriate mood and affect. Procedures Ultrasound-guided thoracentesis 07/13/16 Right chest tube placed 01/09/17 A/P Problem List: (1) PNA (pneumonia) ICD Code: J18.9 Status: Acute (2) Pleural effusion, right ICD Code: J90 Status: Acute (3) Breast CA ICD Code: C50.919 Status: Acute (4) Pneumothorax, right ICD Code: J93.9 Status: Acute Assessment and Plan 61 Y/O female with with advanced breast cancer admitted with large right pleural effusion. S/p Mastectomy, Chemo and radiation w/ recurrence and metastatic disease in 2014. Patient has progressive tumor over chest wall, neck and involving nodes. Per Dr. Lama, she is no longer a candidate for chemotherapy. Her prognosis is poor and hospice was recommended. However the patient has been reluctant and has requested ongoing aggressive care. Today she indicated to me that she is thinking about hospice. She will let me know tomorrow about which hospice to consult. Her ultimate goal is to go home. Acute hypoxemic respiratory failure with stridor today 07/20/16: Resolved. Patient underwent EGD on 07/20/16. She developed respiratory distress and stridor afterwards. The patient was treated with racemic epinephrine and IV Solu-Medrol. Her condition quickly improved. Chest -ray and blood gas were stable. Right large pleural effusion in advanced breast cancer patient: Patient is status post ultrasound-guided thoracentesis on 07/13/16. Fluid culture unremarkable. Pleurodesis considered but chest tube fell out. May consider again when fluid reaccumulates. Right lung pneumothorax after thoracentesis: Probably due to noncompliant lungs. Chest tube placed on 07/13/16. Fell out on 07/15/16. Pneumothorax has been stable on chest x-ray. Dysphagia: Patient reports inability to eat, drink, swallow pills due to pain and phlegm in her throat. ENT was consulted. Barium swallow did not reveal aspiration but there is severe oropharyngeal dysphasia and possible esophageal dysphagia per the speech therapist evaluation. - GI following. s/p EGD, dilation and PEG placement. Patient was on TPN which was discontinued. -Continue tube feeding. History of heart palpitations. Continue metoprolol via G-tube Possible pneumonia: Cannot rule out consolidation in the right lower lobe. Continue Rocephin given her immunocompromise state. Sputum and blood cultures are unremarkable. DC Azithromycin. Plan to DC Rocephin tomorrow and monitor off antibiotics if remaining patient. Hypertension: Currently normotensive, on Lopressor 12.5 mg daily with holding parameters. Vasotec when necessary DVT Prophylaxis: SCD/Teds. Has not been on chemoprophylaxis due to procedures. Discharge Planning Patient is thinking about hospice. I discussed with her and her at bedside extensively. She will let me know tomorrow. Will probably go home with hospice versus [facility]. Sakina Travis MD Jul 22, 2016 16:28
[2016-07-22] MEDS: cefTRIAXone INJ 1,000 MG in SODIUM CHLORIDE 0.9% INJ 100 ML IV SCH (21:27)
[2016-07-23] VITALS (8 sets, daily range): BP systolic 91–158; BP diastolic 55–86; PULSE 86–102; RESP 16–18; TEMP 97.4–98.6; O2SAT 96–100
[2016-07-23] MEDS: HYDROmorphone HCL PF 1 MG/ML VIAL IV PRN ×8 (00:32→21:52)
[2016-07-23] MEDS: CHLORHEXIDINE GLUCONATE 2 % 1 PACK (2 CLOTHS)(taper/protocol) TOP SCH ×2 (03:32→20:29)
[2016-07-23] MEDS: INSULIN ASPART SUPPLEMENTAL SCALE SQ SCH ×2 (07:00→11:00)
[2016-07-23] MEDS: SODIUM CHLORIDE 0.9% FLUSH 5 ML FLUSH FLUSH SCH ×2 (09:01→20:29)
[2016-07-23] MEDS: METOPROLOL SUCCINATE 25 MG EXTENDED RELEASE TAB PO SCH (09:02)
[2016-07-23 09:41] LABS: HEMATOCRIT 35.1 % (35.0-46.0); MEAN CELL VOLUME 87.5 FL (80.0-100.0); MEAN CORPUSCULAR HGB CONC 33.2 % (32.0-36.0); PLATELET COUNT 309 TH/MM3 (150-450); RED BLOOD COUNT 4.02 MIL/MM3 (4.00-5.30); REVIEW FLAG FINAL; WHITE BLOOD COUNT 3.4 TH/MM3 (4.0-11.0)
[2016-07-23 10:21] LABS: BICARBONATE 36.9 MEQ/L (21.0-32.0); POTASSIUM 3.8 MEQ/L (3.5-5.1)
--- NOTE | 2016-07-23 11:57 | HHI.PR ---
Subjective Remarks Patient reports generalized itching today. Believed to be related to Dilaudid. She requested that I consult [facility] so they can talk to her. Objective Vitals Vital Signs Date Time Temp Pulse Resp B/P Pulse Ox O2 Delivery O2 Flow Rate FiO2 07/23/16 08:44 96 Nasal Cannula 3.00 07/23/16 08:00 97.7 102 18 139/65 97 07/23/16 04:00 98.6 86 17 119/86 100 07/22/16 23:52 97.6 92 18 134/61 100 07/22/16 20:00 96 07/22/16 20:00 97.6 96 18 116/61 99 07/22/16 19:45 99 Nasal Cannula 2.00 07/22/16 16:00 97.5 89 19 134/84 99 07/22/16 12:00 98.5 86 19 123/69 94 I/O 07/22/16 07/22/16 07/22/16 07/23/16 07/23/16 07/23/16 07:00 15:00 23:00 07:00 15:00 23:00 Intake Total 640 ml 294 ml 297 ml 0 ml Output Total 650 ml 400 ml 250 ml 350 ml Balance -10 ml -106 ml 47 ml -350 ml Intake Oral 0 ml 0 ml 0 ml 0 ml IV Total 80 ml Tube Feeding 500 ml 144 ml 297 ml Tube Irrigant 150 ml Other 60 ml Output Urine Total 650 ml 400 ml 250 ml 350 ml # Bowel Movements 0 2 0 0 Result Diagram: 07/23/16 0847 07/23/16 0847 Imaging Last Impressions Chest X-Ray 07/20/16 0000 Signed Impressions: Service Date/Time: Wednesday, July 20, 2016 12:37 - CONCLUSION: Stable chest with persistent consolidative changes in the right base. A trace right pneumothorax Juan Diego Shipman MD FACR Modified Barium Swallow 07/16/16 0000 Signed Impressions: Service Date/Time: June 00:00 - CONCLUSION: Administration or aspiration visualized. Galina Judge MD Thoracentesis Ultrasound 07/13/16 0000 Signed Impressions: Service Date/Time: Wednesday, July 13, 2016 15:45 - CONCLUSION: Uncomplicated ultrasound guided thoracentesis. Juan Dieog Shipman MD FACR Objective Remarks GENERAL: Patient in no acute distress. HEENT: Mouth is dry CARDIOVASCULAR: Normal rate and regular rhythm without murmurs, gallops, or rubs. RESPIRATORY: Respiratory effort is fair. Right mid to lower lung baez are markedly diminished. Otherwise rest of the lung baez are clear to auscultation. No wheezing. GASTROINTESTINAL: Abdomen soft, non-distended. Normal active bowel sounds MUSCULOSKELETAL: Extremities without cyanosis, or edema. NEURO: Alert & Oriented . Normal speech PSYCH: Appropriate mood and affect. Procedures Ultrasound-guided thoracentesis 07/13/16 Right chest tube placed 01/09/17 A/P Problem List: (1) PNA (pneumonia) ICD Code: J18.9 Status: Acute (2) Pleural effusion, right ICD Code: J90 Status: Acute (3) Breast CA ICD Code: C50.919 Status: Acute (4) Pneumothorax, right ICD Code: J93.9 Status: Acute Assessment and Plan 61 Y/O female with with advanced breast cancer admitted with large right pleural effusion. S/p Mastectomy, Chemo and radiation w/ recurrence and metastatic disease in 2014. Patient has progressive tumor over chest wall, neck and involving nodes. Per Dr. Lama, she is no longer a candidate for chemotherapy. Her prognosis is poor and hospice was recommended. However the patient has been reluctant and has been requesting ongoing aggressive care. Today she requested that I consult [facility] hospice so they can come and talk to her. Her ultimate goal is to go home. Acute hypoxemic respiratory failure with stridor today 07/20/16: Resolved. Patient underwent EGD on 07/20/16. She developed respiratory distress and stridor afterwards. The patient was treated with racemic epinephrine and IV Solu-Medrol. Her condition quickly improved. Chest -ray and blood gas were stable. Right large pleural effusion in advanced breast cancer patient: Patient is status post ultrasound-guided thoracentesis on 07/13/16. Fluid culture unremarkable. Pleurodesis considered but chest tube fell out. May consider again when fluid reaccumulates. Right lung pneumothorax after thoracentesis: Probably due to noncompliant lungs. Chest tube placed on 07/13/16. Fell out on 07/15/16. Pneumothorax has been stable on chest x-ray. Dysphagia: Patient reports inability to eat, drink, swallow pills due to pain and phlegm in her throat. ENT was consulted. Barium swallow did not reveal aspiration but there is severe oropharyngeal dysphasia and possible esophageal dysphagia per the speech therapist evaluation. - GI following. s/p EGD, dilation and PEG placement. Patient was on TPN which was discontinued. - Continue tube feeding. History of heart palpitations. Continue metoprolol via G-tube Possible pneumonia: Cannot rule out consolidation in the right lower lobe. Continue Rocephin given her immunocompromise state. Sputum and blood cultures are unremarkable. DC Azithromycin. Discontinue Rocephin today and monitor off antibiotics if remaining patient. Hypertension: Currently normotensive, on Lopressor 12.5 mg daily with holding parameters. Vasotec when necessary DVT Prophylaxis: SCD/Teds. Has not been on chemoprophylaxis due to procedures. Discharge Planning Hospice consulted. Discharge based on the patient's decision. Sakina Travis MD Jul 23, 2016 11:57
[2016-07-23] MEDS: cefTRIAXone INJ 1,000 MG in SODIUM CHLORIDE 0.9% INJ 100 ML IV SCH (20:28)
[2016-07-23] MEDS: SODIUM CHLORIDE 0.9% FLUSH 5 ML FLUSH FLUSH PRN (21:51)
[2016-07-24] VITALS (8 sets, daily range): BP systolic 123–144; BP diastolic 69–95; PULSE 95–106; RESP 16–20; TEMP 97.5–98.1; O2SAT 98–100
[2016-07-24] MEDS: HYDROmorphone HCL PF 1 MG/ML VIAL IV PRN ×8 (00:42→22:38)
[2016-07-24] MEDS: SODIUM CHLORIDE 0.9% FLUSH 5 ML FLUSH FLUSH PRN ×4 (00:43→22:38)
[2016-07-24] MEDS: METOPROLOL SUCCINATE 25 MG EXTENDED RELEASE TAB PO SCH (09:56)
[2016-07-24] MEDS: SODIUM CHLORIDE 0.9% FLUSH 5 ML FLUSH FLUSH SCH ×2 (09:57→19:45)
--- NOTE | 2016-07-24 10:56 | HHI.PR ---
Subjective Remarks patient resting in bed- tolerating tube feedings- Jevity 1.5 60 cc/hr appears comfortable difficulty swallowing Objective Vitals Vital Signs Date Time Temp Pulse Resp B/P Pulse Ox O2 Delivery O2 Flow Rate FiO2 07/24/16 08:00 97.9 100 16 137/95 100 07/24/16 04:00 98.1 104 20 144/72 99 07/24/16 00:00 97.5 95 18 137/71 100 07/23/16 20:55 100 Nasal Cannula 2.00 07/23/16 20:24 97 07/23/16 20:00 97.7 101 18 158/71 99 07/23/16 16:00 97.4 95 16 91/55 100 07/23/16 12:00 98.1 95 18 135/63 100 I/O 07/23/16 07/23/16 07/23/16 07/24/16 07/24/16 07/24/16 07:00 15:00 23:00 07:00 15:00 23:00 Intake Total 0 ml 406 ml 408 ml 452 ml Output Total 350 ml 200 ml 350 ml Balance -350 ml 406 ml 208 ml 102 ml Intake Oral 0 ml 0 ml 0 ml IV Total 14 ml Tube Feeding 406 ml 394 ml 452 ml Output Urine Total 350 ml 200 ml 350 ml # Bowel Movements 0 0 0 Result Diagram: 07/23/16 0847 07/23/16 0847 Imaging Last Impressions Chest X-Ray 07/20/16 0000 Signed Impressions: Service Date/Time: Wednesday, July 20, 2016 12:37 - CONCLUSION: Stable chest with persistent consolidative changes in the right base. A trace right pneumothorax Juan Diego Shipman MD FACR Modified Barium Swallow 07/16/16 0000 Signed Impressions: Service Date/Time: June 00:00 - CONCLUSION: Administration or aspiration visualized. Galina Judge MD Thoracentesis Ultrasound 07/13/16 0000 Signed Impressions: Service Date/Time: Wednesday, July 13, 2016 15:45 - CONCLUSION: Uncomplicated ultrasound guided thoracentesis. Juan Diego Shipman MD FACR Objective Remarks frail looking awake and alert, oriented x 3 anicteric no nuchal rigidity chest decreased breath sounds, no rales or wheezes, right chest wall- dressing in place PEG in place extremities no edema Procedures Ultrasound-guided thoracentesis 07/13/16 Right chest tube placed 01/09/17 A/P Problem List: (1) PNA (pneumonia) ICD Code: J18.9 Status: Acute (2) Pleural effusion, right ICD Code: J90 Status: Acute (3) Breast CA ICD Code: C50.919 Status: Acute (4) Pneumothorax, right ICD Code: J93.9 Status: Acute Assessment and Plan 61 Y/O female with with advanced breast cancer admitted with large right pleural effusion. S/p Mastectomy, Chemo and radiation w/ recurrence and metastatic disease in 2014. Patient has progressive tumor over chest wall, neck and involving nodes. Per Dr. Lama, she is no longer a candidate for chemotherapy. Her prognosis is poor and hospice was recommended. However the patient has been reluctant and has been requesting ongoing aggressive care. Acute hypoxemic respiratory failure with stridor today 07/20/16: Resolved. Patient underwent EGD on 07/20/16. She developed respiratory distress and stridor afterwards. The patient was treated with racemic epinephrine and IV Solu-Medrol. Her condition quickly improved. Chest -ray and blood gas were stable. Right large pleural effusion in advanced breast cancer patient: Patient is status post ultrasound-guided thoracentesis on 07/13/16. Fluid culture unremarkable. Pleurodesis considered but chest tube fell out. Right lung pneumothorax after thoracentesis: Probably due to noncompliant lungs. Chest tube placed on 07/13/16. Fell out on 07/15/16. Pneumothorax has been stable on chest x-ray. Dysphagia: Patient reports inability to eat, drink, swallow pills due to pain and phlegm in her throat. ENT was consulted. Barium swallow did not reveal aspiration but there is severe oropharyngeal dysphasia and possible esophageal dysphagia per the speech therapist evaluation. - GI following. s/p EGD, dilation and PEG placement. Patient was on TPN which was discontinued. - NPO - Continue tube feeding. History of heart palpitations. Continue metoprolol via G-tube Possible pneumonia: Cannot rule out consolidation in the right lower lobe. Continue Rocephin given her immunocompromise state. Sputum and blood cultures are unremarkable. DC Azithromycin. Discontinue Rocephin today and monitor off antibiotics if remaining patient. Hypertension: Currently normotensive, on Lopressor 12.5 mg daily with holding parameters. Vasotec when necessary DVT Prophylaxis: SCD/Teds. Has not been on chemoprophylaxis due to procedures. Discharge Planning Hospice consulted- [facility]/- home with hospice in am- home room Maria Dolores Dunham MD Jul 24, 2016 10:56
[2016-07-24] MEDS: diphenhydrAMINE HCL ELIXIR 12.5 MG/5 ML CUP PEG PRN (12:20)
--- NOTE | 2016-07-24 15:45 | PD.ONC.PN ---
Subjective Subjective Remarks Afebrile overnight. Patient resting comfortably. She has decided to go home with hospice, discharge is set up for tomorrow. Objective Data Date Time Temp Pulse Resp B/P Pulse Ox O2 Delivery O2 Flow Rate FiO2 07/24/16 12:00 97.9 97 17 126/74 100 07/24/16 09:30 100 Nasal Cannula 3.00 07/24/16 08:00 97.9 100 16 137/95 100 07/24/16 04:00 98.1 104 20 144/72 99 07/24/16 00:00 97.5 95 18 137/71 100 07/23/16 20:55 100 Nasal Cannula 2.00 07/23/16 20:24 97 07/23/16 20:00 97.7 101 18 158/71 99 07/23/16 16:00 97.4 95 16 91/55 100 07/24/16 07/24/16 07/24/16 07:00 15:00 23:00 Intake Total 452 ml 0 ml Output Total 350 ml Balance 102 ml 0 ml Result Diagram: 07/23/16 0847 07/23/16 0847 Administered Medications Medications (Trade) Dose Ordered Sig/Mitch Route PRN Reason Start Time Stop Time Status Last Admin Dose Admin Ceftriaxone Sodium/Sodium Chloride (Rocephin Inj/NS Inj) 100 ml @ 200 mls/hr Q24H IV 07/13/16 21:00 07/23/16 20:28 IV Flush (NS Flush) 2 ml UNSCH PRN FLUSH FLUSH AFTER USING IV ACCESS 07/12/16 21:00 07/24/16 07:26 IV Flush (NS Flush) 2 ml BID FLUSH 07/12/16 21:00 07/24/16 09:57 Ondansetron HCl (Zofran Inj) 4 mg Q6H PRN IVP NAUSEA OR VOMITING 07/12/16 21:00 07/13/16 00:30 Hydromorphone HCl (Dilaudid Pf Inj) 1 mg Q3H PRN IV Pain 6-10 07/12/16 21:00 07/24/16 13:27 Guaifenesin (Robitussin Liq) 200 mg Q4H PRN PO cough 07/13/16 10:30 07/14/16 01:08 Metoprolol Succinate (Toprol Xl) 12.5 mg DAILY PO 07/14/16 09:00 07/24/16 09:56 Miscellaneous Information Patient in critical care unit? Ass... [id number] XX 07/20/16 16:15 07/20/16 16:15 Chlorhexidine Gluconate (Chlorhexidine 2% Cloth) 3 pack DAILY@04 TOP 07/21/16 04:00 07/25/16 04:01 07/22/16 03:57 Diphenhydramine HCl (Benadryl Liq) 25 mg Q4H PRN PEG ITCHING 07/23/16 12:00 07/24/16 12:20 Objective Remarks GENERAL: Middle aged female, lying in bed, she appears fatigued and chronically ill. SKIN: Warm and dry. multiple tumors present throughout chest wall and back. HEAD: Normocephalic. EYES: No injection or drainage. NECK: Supple, trachea midline. CARDIOVASCULAR: Regular rate and rhythm RESPIRATORY: diminished at bases. Anterior baez scattered rhonchi GASTROINTESTINAL: Abdomen soft, non-tender, nondistended. EXTREMITIES: No cyanosis NEUROLOGICAL: awake and alert. Normal speech. moving all extremities. Assessment/Plan Assessment 61y/o with metastatic breast cancer Plan 1. Agree with hospice. I tried to bring up code status with the patient and she indicated she was not willing to discuss it again, "I already discussed that with Dr. Lama." She reiterated she wanted to remain a full code even though she is going home with hospice. Laquita Burton Jul 24, 2016 15:45
[2016-07-24] MEDS ORDERED: DILA2TAB2 PO (15:50)
[2016-07-24] MEDS: cefTRIAXone INJ 1,000 MG in SODIUM CHLORIDE 0.9% INJ 100 ML IV SCH (19:44)
[2016-07-24] MEDS: CHLORHEXIDINE GLUCONATE 2 % 1 PACK (2 CLOTHS)(taper/protocol) TOP SCH (19:45)
[2016-07-25] VITALS: BP 113/80; PULSE 96; RESP 18; TEMP 97.6; O2SAT 100
[2016-07-25] MEDS: HYDROmorphone HCL PF 1 MG/ML VIAL IV PRN ×4 (01:27→09:51)
[2016-07-25] MEDS: SODIUM CHLORIDE 0.9% FLUSH 5 ML FLUSH FLUSH PRN ×2 (01:27→04:32)
[2016-07-25] MEDS: diphenhydrAMINE HCL ELIXIR 12.5 MG/5 ML CUP PEG PRN (03:24)
[2016-07-25 03:54] VITALS: BP 136/72; PULSE 106; RESP 18; TEMP 97.6; O2SAT 100
[2016-07-25] MEDS: SODIUM CHLORIDE 0.9% FLUSH 5 ML FLUSH FLUSH SCH (07:35)
[2016-07-25 07:52] VITALS: PULSE 95
[2016-07-25 08:00] VITALS: BP 159/74; PULSE 100; RESP 22; TEMP 98.7; O2SAT 100
--- NOTE | 2016-07-25 08:13 | HHI.PR ---
Subjective Remarks resting comfortably states pain meds helping denies any nausea or vomiting Objective Vitals Vital Signs Date Time Temp Pulse Resp B/P Pulse Ox O2 Delivery O2 Flow Rate FiO2 07/25/16 03:54 97.6 106 18 136/72 100 07/25/16 00:00 97.6 96 18 113/80 100 07/24/16 20:00 97.6 106 17 123/76 98 07/24/16 19:45 104 07/24/16 14:00 97.9 101 18 129/69 99 07/24/16 12:00 97.9 97 17 126/74 100 07/24/16 09:30 100 Nasal Cannula 3.00 I/O 07/24/16 07/24/16 07/24/16 07/25/16 07/25/16 07/25/16 07:00 15:00 23:00 07:00 15:00 23:00 Intake Total 452 ml 533 ml 169 ml 506 ml Output Total 350 ml 250 ml Balance 102 ml 533 ml -81 ml 506 ml Intake Oral 0 ml 0 ml 0 ml 0 ml IV Total 0 ml Tube Feeding 452 ml 533 ml 169 ml 506 ml Output Urine Total 350 ml 250 ml # Voids 5 2 # Bowel Movements 0 0 0 Result Diagram: 07/23/16 0847 07/23/16 0847 Imaging Last Impressions Chest X-Ray 07/20/16 0000 Signed Impressions: Service Date/Time: Wednesday, July 20, 2016 12:37 - CONCLUSION: Stable chest with persistent consolidative changes in the right base. A trace right pneumothorax Juan Diego Shipman MD FACR Modified Barium Swallow 07/16/16 0000 Signed Impressions: Service Date/Time: June 00:00 - CONCLUSION: Administration or aspiration visualized. Galina Judge MD Thoracentesis Ultrasound 07/13/16 0000 Signed Impressions: Service Date/Time: Wednesday, July 13, 2016 15:45 - CONCLUSION: Uncomplicated ultrasound guided thoracentesis. Juan Diego Shipman MD FACR Objective Remarks frail looking, moves all extremities spontaneously awake and alert, oriented x 3 anicteric no nuchal rigidity chest decreased breath sounds, no rales or wheezes, port in place PEG in place extremities no edema Procedures Ultrasound-guided thoracentesis 07/13/16 Right chest tube placed 01/09/17 A/P Problem List: (1) PNA (pneumonia) ICD Code: J18.9 Status: Acute (2) Pleural effusion, right ICD Code: J90 Status: Acute (3) Breast CA ICD Code: C50.919 Status: Acute (4) Pneumothorax, right ICD Code: J93.9 Status: Acute Assessment and Plan 61 Y/O female with with advanced breast cancer admitted with large right pleural effusion. S/p Mastectomy, Chemo and radiation w/ recurrence and metastatic disease in 2014. Patient has progressive tumor over chest wall, neck and involving nodes. Per Dr. Lama, she is no longer a candidate for chemotherapy. Her prognosis is poor and hospice was recommended. However the patient has been reluctant and has been requesting ongoing aggressive care. Acute hypoxemic respiratory failure with stridor today 07/20/16: Resolved. Patient underwent EGD on 07/20/16. She developed respiratory distress and stridor afterwards. The patient was treated with racemic epinephrine and IV Solu-Medrol. Her condition quickly improved. Chest -ray and blood gas were stable. supplemental 02 Right large pleural effusion in advanced breast cancer patient: Patient is status post ultrasound-guided thoracentesis on 07/13/16. Fluid culture unremarkable. Pleurodesis considered but chest tube fell out. Right lung pneumothorax after thoracentesis: Probably due to noncompliant lungs. Chest tube placed on 07/13/16. Fell out on 07/15/16. Pneumothorax has been stable on chest x-ray. Dysphagia: Patient reports inability to eat, drink, swallow pills due to pain and phlegm in her throat. ENT was consulted. Barium swallow did not reveal aspiration but there is severe oropharyngeal dysphasia and possible esophageal dysphagia per the speech therapist evaluation. - GI following. s/p EGD, dilation and PEG placement. Patient was on TPN which was discontinued. - NPO - Continue tube feeding. History of heart palpitations. Continue metoprolol via G-tube Possible pneumonia: Cannot rule out consolidation in the right lower lobe. Continue Rocephin given her immunocompromise state. Sputum and blood cultures are unremarkable. DC Azithromycin. Discontinue Rocephin today and monitor off antibiotics if remaining patient. Hypertension: Currently normotensive, on Lopressor 12.5 mg daily with holding parameters. Vasotec when necessary DVT Prophylaxis: SCD/Teds. Has not been on chemoprophylaxis due to procedures. Home with hospice today- [facility] Maria Dolores Arora MD Jul 25, 2016 08:13
[2016-07-25] MEDS: METOPROLOL SUCCINATE 25 MG EXTENDED RELEASE TAB PO SCH (08:52)
--- NOTE | 2016-07-25 10:21 | HHI.DS ---
Discharge Summary Admission Date Jul 13, 2016 at 18:39 Discharge Date: Jul 25, 2016 Admitting Diagnosis Large right pleural effusion, congestion, on chemotherapy (1) PNA (pneumonia) ICD Code: J18.9 Diagnosis: Principal (2) Pleural effusion, right ICD Code: J90 Diagnosis: Principal (3) Breast CA ICD Code: C50.919 Diagnosis: Secondary (4) Pneumothorax, right ICD Code: J93.9 Diagnosis: Secondary Procedures Ultrasound-guided thoracentesis 07/13/16 Right chest tube placed 01/09/17 Brief History - From Admission This is a 61-year-old female with a PMH of Metastatic Breast CA, HTN and Anxiety presented to the ER with complaints of generalized weakness, decreased PO intake and difficulty swallowing. States symptoms have been ongoing for 2- 3wks however have been progressively worse in the last 2-3 days. Denies fever, chills, nausea or vomiting. On arrival, BP 158/75, HR 86, O2 sat 99% on RA, Afebrile. WBC 2.7, at baseline. Chemistry unremarkable. UA negative. CXR with large right pleural effusion and possible underlying consolidation. S/p Rocephin/Zithro in ER. Currently following w/ Dr. Lama. CBC/BMP: 07/23/16 0847 07/23/16 0847 Significant Findings Laboratory Tests Test 07/23/16 08:47 White Blood Count 3.4 TH/MM3 (4.0-11.0) Chloride Level 94 MEQ/L (98-107) Carbon Dioxide Level 36.9 MEQ/L (21.0-32.0) Random Glucose 112 MG/DL (74-106) PE at Discharge frail looking, moves all extremities spontaneously awake and alert, oriented x 3 anicteric no nuchal rigidity chest decreased breath sounds, no rales or wheezes, port in place PEG in place extremities no edema Pt update on day of discharge afebrile comfortable, tolerating tube feedings Hospital Course 61 Y/O female with with advanced breast cancer admitted with large right pleural effusion. S/p Mastectomy, Chemo and radiation w/ recurrence and metastatic disease in 2014. Patient has progressive tumor over chest wall, neck and involving nodes. Per Dr. Lama, she is no longer a candidate for chemotherapy. Her prognosis is poor and hospice was recommended. However the patient has been reluctant and has been requesting ongoing aggressive care. Acute hypoxemic respiratory failure with stridor today 07/20/16: Resolved. Patient underwent EGD on 07/20/16. She developed respiratory distress and stridor afterwards. The patient was treated with racemic epinephrine and IV Solu-Medrol. Her condition quickly improved. Chest -ray and blood gas were stable. supplemental 02 Right large pleural effusion in advanced breast cancer patient: Patient is status post ultrasound-guided thoracentesis on 07/13/16. Fluid culture unremarkable. Pleurodesis considered but chest tube fell out. Right lung pneumothorax after thoracentesis: Probably due to noncompliant lungs. Chest tube placed on 07/13/16. Fell out on 07/15/16. Pneumothorax has been stable on chest x-ray. Dysphagia: Patient reports inability to eat, drink, swallow pills due to pain and phlegm in her throat. ENT was consulted. Barium swallow did not reveal aspiration but there is severe oropharyngeal dysphasia and possible esophageal dysphagia per the speech therapist evaluation. - GI following. s/p EGD, dilation and PEG placement. Patient was on TPN which was discontinued. - NPO - Continue tube feeding. History of heart palpitations. Continue metoprolol via G-tube Possible pneumonia: Cannot rule out consolidation in the right lower lobe. Continue Rocephin given her immunocompromise state. Sputum and blood cultures are unremarkable. DC Azithromycin. Discontinue Rocephin today and monitor off antibiotics if inpatient Hypertension: Currently normotensive, on Lopressor 12.5 mg daily with holding parameters. Vasotec when necessary DVT Prophylaxis: SCD/Teds. Has not been on chemoprophylaxis due to procedures. Home with hospice today- [facility] hospice Pt Condition on Discharge: Fair Discharge Disposition: Hospice/ Home Discharge Time: <= 30 minutes Discharge Instructions DIET: Follow Instructions for: As Tolerated, No Restrictions, On Tube Feeding Speech Therapy-Diet Recommends: Regular Activities you can perform: Weight Bearing as Rene, Continue Bedrest New Medications: Hydromorphone (Dilaudid) 2 Mg Tab 1 MG PO Q4H PRN Pain Management #20 Ref 0 TAB Continued Medications: Aspirin (Aspirin) 81 Mg Chew 81 MG CHEW DAILY Ref 0 TAB Metoprolol Succinate ER 24 HR (Metoprolol Succinate ER 24 HR) 25 Mg Tab 12.5 MG PO DAILY #30 Ref 0 TAB Discontinued Medications: Morphine ER (Morphine ER) 30 Mg Tab 30 MG PO Q8H Pain Management Ref 0 TAB Maria Dolores Dunham MD Jul 25, 2016 10:21
== END 2016-07-25 10:09 | disposition hospice, home (50) | DRG 180 ==
LOC: NEPE 19:02 → NEDA 20:59 → NEPHCDU 07-13 00:12 → HOCB 07-13 18:00 → OBSVTOIN 07-13 18:39 → HOCA 07-13 19:25 → HCIS 07-17 12:41 → HIMN 07-20 13:30 → N07A 07-21 14:23
PROVIDERS: ADMIT Internal Medicine; ATTEND Internal Medicine
PROC: 0W993ZX Drainage of Right Pleural Cavity, Percutaneous Approach, Diagnostic (ICD-10-PCS; principal; 2016-07-13)
PROC: 0W9930Z Drainage of Right Pleural Cavity with Drainage Device, Percutaneous Approach (ICD-10-PCS; 2016-07-13)
PROC: 0D718ZZ Dilation of Upper Esophagus, Via Natural or Artificial Opening Endoscopic (ICD-10-PCS; 2016-07-20)
PROC: 0DH63UZ Insertion of Feeding Device into Stomach, Percutaneous Approach (ICD-10-PCS; 2016-07-20 10:50)
DX: C78.2 Secondary malignant neoplasm of pleura (principal); J18.9 Pneumonia, unspecified organism; J96.01 Acute respiratory failure with hypoxia; Q39.4 Esophageal web; R13.12 Dysphagia, oropharyngeal phase; C77.9 Secondary and unspecified malignant neoplasm of lymph node, unspecified; C79.2 Secondary malignant neoplasm of skin; C79.51 Secondary malignant neoplasm of bone; J90 Pleural effusion, not elsewhere classified; C79.89 Secondary malignant neoplasm of other specified sites; J93.9 Pneumothorax, unspecified; R63.0 Anorexia; E86.0 Dehydration; R62.7 Adult failure to thrive; G62.9 Polyneuropathy, unspecified; I10 Essential (primary) hypertension; F41.9 Anxiety disorder, unspecified; E78.5 Hyperlipidemia, unspecified; E78.00 Pure hypercholesterolemia, unspecified; K12.30 Oral mucositis (ulcerative), unspecified; E16.2 Hypoglycemia, unspecified; E87.6 Hypokalemia; Z51.5 Encounter for palliative care; L29.9 Pruritus, unspecified; Z17.0 Estrogen receptor positive status [ER+]; Z90.11 Acquired absence of right breast and nipple; Z92.3 Personal history of irradiation; Z95.2 Presence of prosthetic heart valve; Z85.3 Personal history of malignant neoplasm of breast
CPT/HCPCS: 32555; 32557; 36600; 71010; 74230; 76937; 77003; 80048; 80053; 81001; 82550; 82552; 82805; 82948; 83605; 83615; 83690; 83735; 83880; 84157; 84484; 85025; 85027; 85610; 85730; 86140; 87040; 87070; 87205; 87641; 89051; 93005; 94150; 94640; 94664; 96374; 96375; C1729; C1769; G0378; J0456; J0692; J0696; J1170; J1980; J2270; J2405; J2930; J3010; J3480; J7040; J7050; J7070

== ENCOUNTER 2016-08-06 00:24 | Observation (INO) | payer OTHER ==
[2016-08-06] VITALS (11 sets, daily range): BP systolic 97–203; BP diastolic 51–134; PULSE 80–109; RESP 11–22; TEMP 97.9–98.5; O2SAT 98–100
[~2016-08-06] VITALS: Ht 149.9 cm; Wt 50.0 kg
[~2016-08-06 00:24] MED LIST changes: +ASPI81CH CHEW; +DILA2TAB2 PO; -FLAXSEED OIL; +METO25TA6 PO; -METO5SOL2 PO; -TAB-TAB PO; -TOPR25TA2 PO
[2016-08-06] MEDS ORDERED: LORA1TAB12 PO (00:43)
--- NOTE | 2016-08-06 00:53 | PD ---
HPI Chief Complaint: Respiratory Symptoms Time Seen by Provider: 00:47 Travel History International Travel<30 days: No Contact w/Intl Traveler<30days: No Traveled to known affect area: No History of Present Illness HPI This is a 61-year-old female with history of breast cancer, who is currently undergoing chemotherapy, who presents here with complaints of cough and shortness of breath with inability to clear mucus in her throat. The patient denies any fevers or chills. She states that she's having difficulty swallowing the mucus which in turn is causing shortness of breath. PFSH Past Medical History Arthritis: No Asthma: No Autoimmune Disease: No Blood Disorders: No Anxiety: Yes Depression: No Heart Rhythm Problems: Yes (PROLAPSED MITRAL VALVE/ HEART MURMUR. HEART PALPITATION. ) Cancer: Yes (BREAST) Cardiovascular Problems: Yes (HEART PALPITATION ; MVP) High Cholesterol: Yes Chemotherapy: Yes (2 weeks ago ) Chest Pain: Yes (NEWLY ONSET.) Congestive Heart Failure: No COPD: No Cerebrovascular Accident: No Diabetes: No Diminished Hearing: No Endocrine: No GERD: No Glaucoma: No Genitourinary: No Headaches: No Hepatitis: No Hiatal Hernia: No Hypertension: No Immune Disorder: No Kidney Stones: No Medical other: Yes (VERTIGO, pain pump to left chest port with dilaudid ) Musculoskeletal: Yes Neurologic: Yes Psychiatric: Yes Reproductive: No Respiratory: Yes Migraines: No Myocardial Infarction: No Radiation Therapy: No Renal Failure: No Seizures: No Sleep Apnea: No Thyroid Disease: No Ulcer: No Tetanus Vaccination: Never Vaccinated Influenza Vaccination: No Past Surgical History Abdominal Surgery: Yes (HEPATIC CYSTECTOMY) AICD: No Appendectomy: No Arteriovenous Shunt: No Cardiac Surgery: No Section: Yes Cholecystectomy: Yes Ear Surgery: No Endocrine Surgery: No Eye Surgery: No Genitourinary Surgery: No Gynecologic Surgery: Yes ( X 2; ELIO, UTERINE ABLATION) Hysterectomy: Yes Insulin Pump: No Joint Replacement: No Mastectomy: Yes Oral Surgery: No Pacemaker: No Thoracic Surgery: Yes (right breast masectomy ) Other Surgery: Yes Social History Alcohol Use: No Tobacco Use: No Substance Use: No Allergies-Medications (Allergen,Severity, Reaction): Coded Allergies: Adhesives (Unverified Allergy, Severe, RASH, 08/06/16) Celebrex (Verified Allergy, Severe, 08/06/16) gi upset Darvocet-N 100 (Verified Allergy, Severe, 08/06/16) n/v Levsin (Verified Allergy, Severe, Tachycardia, 08/06/16) Zantac (Verified Allergy, Severe, itching, 08/06/16) Uncoded Allergies: SELDANE (Allergy, Severe, UNK, 02/21/10) Reported Meds & Prescriptions Reported Meds & Active Scripts Active Dilaudid (Hydromorphone HCl) 2 Mg Tab 1 Mg PO Q4H PRN Reported Lorazepam 1 Mg Tab 1 Mg PO DAILY PRN Metoprolol Succinate ER 24 HR (Metoprolol Succinate) 25 Mg Tab 12.5 Mg PO DAILY Physical Exam Narrative GENERAL: Elderly ill appearing female in moderate respiratory discomfort. SKIN: Warm and dry. HEAD: Atraumatic. Normocephalic. EYES: No scleral icterus. No injection or drainage. ENT: No nasal bleeding or discharge. Slight dry mucous membranes. Patient is mouth breathing. NECK: Trachea midline. Supple. CARDIOVASCULAR: Regular rate and rhythm. No murmur appreciated. RESPIRATORY: Coarse breath sounds bilaterally. No Rales appreciated. Patient does have a surgical absence of right breast secondary to surgery GASTROINTESTINAL: Abdomen soft, non-tender, nondistended. MUSCULOSKELETAL: No obvious deformities. No clubbing. No cyanosis. No edema. NEUROLOGICAL: Awake and alert. She does move extremities equally. Data Data Last Documented VS Vital Signs Date Time Temp Pulse Resp B/P Pulse Ox O2 Delivery O2 Flow Rate FiO2 08/06/16 00:54 98 Nasal Cannula 2 08/06/16 00:54 101 20 107/55 08/06/16 00:32 97.9 Orders Complete Blood Count With Diff (08/06/16 00:48) Comprehensive Metabolic Panel (08/06/16 00:48) Ckmb (Isoenzyme) Profile (08/06/16 00:48) Troponin I (08/06/16 00:48) Urinalysis - C+S If Indicated (08/06/16 00:48) Iv Access Insert/Monitor (08/06/16 00:48) Ecg Monitoring (08/06/16 00:48) Oximetry (08/06/16 00:48) Oxygen Administration (08/06/16 00:48) Chest, Pa & Lat (08/06/16 00:48) Sodium Chloride 0.9% Flush (Ns Flush) (08/06/16 01:00) Labs Laboratory Tests Test 08/06/16 00:50 White Blood Count 5.8 TH/MM3 Red Blood Count 4.34 MIL/MM3 Hemoglobin 12.4 GM/DL Hematocrit 38.9 % Mean Corpuscular Volume 89.6 FL Mean Corpuscular Hemoglobin 28.7 PG Mean Corpuscular Hemoglobin 32.0 % Concent Red Cell Distribution Width 16.8 % Platelet Count 250 TH/MM3 Mean Platelet Volume 9.2 FL Neutrophils (%) (Auto) 79.0 % Lymphocytes (%) (Auto) 11.6 % Monocytes (%) (Auto) 6.9 % Eosinophils (%) (Auto) 2.0 % Basophils (%) (Auto) 0.5 % Neutrophils # (Auto) 4.6 TH/MM3 Lymphocytes # (Auto) 0.7 TH/MM3 Monocytes # (Auto) 0.4 TH/MM3 Eosinophils # (Auto) 0.1 TH/MM3 Basophils # (Auto) 0.0 TH/MM3 CBC Comment DIFF FINAL Differential Comment Sodium Level 152 MEQ/L Potassium Level 3.7 MEQ/L Chloride Level 109 MEQ/L Carbon Dioxide Level 38.6 MEQ/L Anion Gap 4 MEQ/L Blood Urea Nitrogen 30 MG/DL Creatinine 0.66 MG/DL Estimat Glomerular Filtration 110 ML/MIN Rate Random Glucose 121 MG/DL Calcium Level 9.3 MG/DL Total Bilirubin 0.3 MG/DL Aspartate Amino Transf 76 U/L (AST/SGOT) Alanine Aminotransferase 52 U/L (ALT/SGPT) Alkaline Phosphatase 158 U/L Total Creatine Kinase 93 U/L Troponin I 0.07 NG/ML Total Protein 7.8 GM/DL Albumin 2.9 GM/DL [facility] Medical Decision Making Medical Screen Exam Complete: Yes Emergency Medical Condition: Yes Differential Diagnosis Aspiration versus pneumonia versus pooled secretions Narrative Course 61-year-old female with unfortunate history of end-stage breast cancer, who was recently put on hospice, presents with rest her distress and difficulty swallowing secondary to pulled secretions. I spoke with the who is at the bedside who states that he was recent cold that she had 2 weeks to live. He states a Dr. Ricardo was the one who told him this. He states that he wishes to speak with Dr. Oscar Ricardo before continuing any more treatment at this time. She does currently have a pain pump that she uses for the intractable pain. She is pulling secretions however is able to suction it with her Y[place]auer at the bedside. At this point they wish to continue comfort measures and no heroic measures at this point she is still a DNR and will likely be old to resume hospice care tomorrow once they have a better idea and understanding of her process. She'll be placed under observation on the [facility] hospitalist team. Case was discussed with Dr. Rao Diagnosis Primary Impression: Respiratory distress Additional Impression: Breast CA Adolfo Ibarra MD Aug 06, 2016 00:53
[2016-08-06] MEDS ORDERED: SODIUM CHLORIDE 0.9% FLUSH 5 ML FLUSH IVF PRN (01:00)
[2016-08-06 01:22] LABS: AUTOMATED NEUTROPHIL # 4.6 TH/MM3 (1.8-7.7); BASOPHIL % 0.5 % (0.0-2.0); EOSINOPHIL # 0.1 TH/MM3 (0-0.4); HEMATOCRIT 38.9 % (35.0-46.0); HEMO FLAGS DIFF FINAL; LYMPH % 11.6 % (9.0-44.0); LYMPHOCYTE # 0.7 TH/MM3 (1.0-4.8); MEAN CELL VOLUME 89.6 FL (80.0-100.0); MEAN CORPUSCULAR HEMOGLOBIN 28.7 PG (27.0-34.0); MONO % 6.9 % (0.0-8.0); PLATELET COUNT 250 TH/MM3 (150-450); RED BLOOD COUNT 4.34 MIL/MM3 (4.00-5.30); RED CELL DISTRIBUTION WIDTH 16.8 % (11.6-17.2); WHITE BLOOD COUNT 5.8 TH/MM3 (4.0-11.0)
[2016-08-06 01:24] LABS: ALT (GPT) 52 U/L (10-53); ANION GAP 4 MEQ/L (5-15); AST (GOT) 76 U/L (15-37); BICARBONATE 38.6 MEQ/L (21.0-32.0); BLOOD UREA NITROGEN 30 MG/DL (7-18); CHLORIDE 109 MEQ/L (98-107); GLOMERULAR FILTRATION RATE 110 ML/MIN (>89); POTASSIUM 3.7 MEQ/L (3.5-5.1); SODIUM (NA) 152 MEQ/L (136-145)
[2016-08-06 01:29] LABS: ALKALINE PHOSPHATASE 158 U/L (45-117); TOTAL BILIRUBIN ADULT 0.3 MG/DL (0.2-1.0)
[2016-08-06 01:38] LABS: CREATINE KINASE 93 U/L (26-192)
--- NOTE | 2016-08-06 01:42 | RADRPT ---
EXAM DATE/TIME: 08/06/2016 01:06 [place] COMPARISON: CHEST SINGLE AP, July 20, 2016, 12:37. INDICATIONS : Shortness of breath, cough, difficulty breathing starting today MEDICAL HISTORY : Carcinoma, breast. Prolapsed mitral valve SURGICAL HISTORY : Mastectomy, right. ENCOUNTER: Initial ACUITY: 1 day PAIN SCORE: 5/10 LOCATION: Bilateral chest FINDINGS: The cardiac silhouette is normal in transverse diameter. [id number]-[id number] is in place via left subclavi an approach with its tip in the superior vena cava. There is elevation of the right hemidiaphragm. Th ere is patchy alveolar disease on the right compatible with edema or pneumonia. The findings are impr derick when compared with the prior exam. CONCLUSION: Right basilar atelectasis versus pneumonia The findings are improved when compared with the prior exa mPerry Merino MD on August 06, 2016 at 1:37 Board Certified Radiologist. This report was verified electronically.
[2016-08-06 03:22] LABS: BACTERIA, URINE RARE /hpf; BLOOD, URINE NEG (NEG); GLUCOSE,URINE NEG (NEG); KETONE, URINE NEG (NEG); MUCUS URINE FEW /lpf (OCC); NITRITE,URINE NEG (NEG); SQUAMOUS EPITHELIAL CELL URINE <1 /hpf (0-5); URINE COLOR YELLOW (YELLW/STRAW)
[2016-08-06 03:23] LABS: COMMENT (UR) CATH-CULTURE IND; CULTURE IF INDICATED CATH CULTURE IND
[2016-08-06] MEDS ORDERED: LORazepam 0.5 MG TAB G-TUBE ONE (03:30)
[2016-08-06] MEDS ORDERED: RESP: ALBUTEROL 2.5 MG/IPRATROPIUM 0.5 MG NEB (PRN) NEB (03:45)
[2016-08-06] MEDS ORDERED: ACETAMINOPHEN 325 MG TAB PO PRN (03:45)
[2016-08-06] MEDS ORDERED: SODIUM CHLORIDE 0.9% FLUSH 5 ML FLUSH FLUSH PRN (03:45)
[2016-08-06] MEDS ORDERED: MORPHINE SULFATE 4 MG/ML INJ IV PUSH PRN (03:45)
[2016-08-06] MEDS ORDERED: LORazepam 2 MG/ML VIAL IV PUSH PRN (03:45)
[2016-08-06] MEDS ORDERED: JEVILIQ12 PEG (04:17)
[2016-08-06] MEDS ORDERED: GLYCOPYRROLATE 0.2 MG/ML VIAL IV PUSH PRN (04:45)
--- NOTE | 2016-08-06 04:50 | HHI.HP ---
[facility] Salvador Cook MD Admission Diagnosis respiratory distress, end-stage breast cancer, Diagnoses: (1) Breast CA Diagnosis: Principal (2) Respiratory distress Diagnosis: Principal (3) DNR (do not resuscitate) Diagnosis: Principal (4) Hospice care patient Diagnosis: Principal Travel History International Travel<30 Days: No Contact w/Intl Traveler <30 Da: No Traveled to Known Affected Are: No History of Present Illness This is a 61 year old DNR female on Hospice with a PMH of Metastatic Breast CA, Anxiety and HTN was brought to the ER by her secondary to progressive SOB. Per , pt is currently under Hospice w/ [facility] and have been pending evaluation by verifying specialist for 4 days. Tonight, states pt's breathing had gotten worse at which time he brought her to the ER. Pt and both relay goal is to continue w/ DNR status and Hospice Care w/ Comfort Measures. Per verifying specialist, pt not in critical status, therefore plan had been for weekly visits. On arrival, BP 203/134, HR 109, O2 sat 98% on RA, Afebrile. BP currently 107/55, HR 101. CBC unremarkable. Na 152. Trop 0.07. CXR with right basilar atelectasis versus pneumonia, findings improved in comparison to previous exam. Review of Systems Except as stated in HPI: all other systems reviewed are Neg ROS: 14 point review of systems otherwise negative. Past Family Social History Past Medical History PMH: Metastatic Breast CA, Anxiety and HTN Past Surgical History PAST SURGICAL HISTORY: Hepatic Cystectomy, , Cholecystectomy, Right Breast Mastectomy Allergies: Coded Allergies: Adhesives (Unverified Allergy, Severe, RASH, 08/06/16) Celebrex (Verified Allergy, Severe, 08/06/16) gi upset Darvocet-N 100 (Verified Allergy, Severe, 08/06/16) n/v Levsin (Verified Allergy, Severe, Tachycardia, 08/06/16) Zantac (Verified Allergy, Severe, itching, 08/06/16) Uncoded Allergies: SELDANE (Allergy, Severe, UNK, 02/21/10) Family History PAST FAMILY HISTORY: Reviewed. No h/o DM or CAD Social History PAST SOCIAL HISTORY: Negative for alcohol, tobacco or drugs. Physical Exam Vital Signs Vital Signs Date Time Temp Pulse Resp B/P Pulse Ox O2 Delivery O2 Flow Rate FiO2 08/06/16 00:54 98 Nasal Cannula 2 08/06/16 00:54 101 20 107/55 99 Nasal Cannula 2 08/06/16 00:54 98 Nasal Cannula 08/06/16 00:32 97.9 109 22 203/134 98 Physical Exam PE: GENERAL: Thin, chronically ill-appearing middle-aged black female in no acute distress. Conversive, but speech difficult to understand. pacing at bedside. HEENT: PERRLA, EOMI. No scleral icterus or conjunctival pallor. No lid lag or facial droop. CARDIOVASCULAR: Regular rate and rhythm. No obvious murmurs to auscultation. No chest tenderness to palpation. Right mastectomy. RESPIRATORY: Coarse breath sounds bilaterally. Breath sounds decreased at bases. GASTROINTESTINAL: Abdomen soft, non-tender, nondistended. BS normal. MUSCULOSKELETAL: Extremities without clubbing, cyanosis, or edema. No obvious deformities. NEUROLOGICAL: Awake, alert and oriented x4. No focal neurologic deficits. Moving both upper and lower extremities spontaneously. Laboratory Laboratory Tests Test 08/06/16 08/06/16 00:50 03:10 White Blood Count 5.8 Red Blood Count 4.34 Hemoglobin 12.4 Hematocrit 38.9 Mean Corpuscular Volume 89.6 Mean Corpuscular Hemoglobin 28.7 Mean Corpuscular Hemoglobin 32.0 Concent Red Cell Distribution Width 16.8 Platelet Count 250 Mean Platelet Volume 9.2 Neutrophils (%) (Auto) 79.0 Lymphocytes (%) (Auto) 11.6 Monocytes (%) (Auto) 6.9 Eosinophils (%) (Auto) 2.0 Basophils (%) (Auto) 0.5 Neutrophils # (Auto) 4.6 Lymphocytes # (Auto) 0.7 Monocytes # (Auto) 0.4 Eosinophils # (Auto) 0.1 Basophils # (Auto) 0.0 CBC Comment DIFF FINAL Differential Comment Sodium Level 152 Potassium Level 3.7 Chloride Level 109 Carbon Dioxide Level 38.6 Anion Gap 4 Blood Urea Nitrogen 30 Creatinine 0.66 Estimat Glomerular Filtration 110 Rate Random Glucose 121 Calcium Level 9.3 Total Bilirubin 0.3 Aspartate Amino Transf 76 (AST/SGOT) Alanine Aminotransferase 52 (ALT/SGPT) Alkaline Phosphatase 158 Total Creatine Kinase 93 Troponin I 0.07 Total Protein 7.8 Albumin 2.9 Urine Color YELLOW Urine Turbidity HAZY Urine pH 7.0 Urine Specific [place] 1.023 Urine Protein TRACE Urine Glucose (UA) NEG Urine Ketones NEG Urine Occult Blood NEG Urine Nitrite NEG Urine Bilirubin NEG Urine Urobilinogen 2.0 Urine Leukocyte Esterase NEG Urine RBC 1 Urine WBC 2 Urine Squamous Epithelial <1 Cells Urine Amorphous Sediment RARE Urine Bacteria RARE Urine Mucus FEW Microscopic Urinalysis Comment CATH-CULTURE IND Date/Time Procedure Status Source Growth 08/06/16 03:10 Urine Culture Received Urine Catheterized Urine Pending Result Diagram: 08/06/164908/06/1649 Assessment and Plan Problem List: (1) Breast CA ICD Code: C50.919 Status: Acute (2) Respiratory distress ICD Code: R06.00 Status: Acute (3) Hospice care patient ICD Code: Z51.5 Status: Acute (4) DNR (do not resuscitate) ICD Code: Z66 Status: Acute Assessment and Plan A/P: 1. Metastatic Breast CA: previously on Chemo however progressive disease despite treatment, currently under Hospice. Following w/ Dr. Lama as outpatient. 2. Respiratory Distress: c/o SOB and respiratory distress w/ increased secretions. Afebrile, no leukocytosis. CXR improved from previous, images reviewed by me. DuoNeb prn, Glycopyrrolate IV for secretions. 3. Hospice: currently under the care of Hospice w/ [facility], verifying specialist aware of admission, making arrangements for when pt to be discharged home. Pt and wish to continue Hospice care. Ativan/Morphine prn for Comfort Measures. No need to repeat labs. 4. DNR: Code Status confirmed, pt wishes to remain DNR. 5. DVT Prophylaxis: Hospice/Comfort Measures. 6. Social work for d/c planning as needed. 7. Case discussed w/ ER physician at length. Roxi Lucero MD Aug 06, 2016 04:50
--- NOTE | 2016-08-06 08:36 | EKG ---
Date Performed: 08/06/2016 Time Performed: 00:49:54 PTAGE: 61 years EKG: SINUS TACHYCARDIA POSSIBLE RIGHT VENTRICULAR CONDUCTION DELAY ABNORMAL RHYTHM ECG PREVIOUS TRACING : 07/16/2016 10.36 DOCTOR: Deric Garcia Interpretating Date/Time 08/06/2016 08:33:49
[2016-08-06] MEDS ORDERED: SODIUM CHLORIDE 0.9% FLUSH 5 ML FLUSH FLUSH SCH (09:00)
--- NOTE | 2016-08-06 11:21 | EKG ---
Date Performed: 08/06/2016 Time Performed: 08:20:15 PTAGE: 61 years EKG: SINUS TACHYCARDIA POSSIBLE RIGHT VENTRICULAR CONDUCTION DELAY ABNORMAL RHYTHM ECG PREVIOUS TRACING : 08/06/2016 00.49 DOCTOR: Deric Garcia Interpretating Date/Time 08/06/2016 11:18:45
--- NOTE | 2016-08-06 15:59 | HHI.PR ---
Subjective Remarks Follow-up for increased secretions. The patient has been having problems swallowing and coughing up secretions. She cannot take less than secondary to tachycardia. She is not short of breath. She would like to go back home with hospice if possible. Reportedly, family does not want care Center wants to take the patient home. Discussed with RN, reportedly hospice requested to be contacted when the patient is discharged. Objective Vitals Vital Signs Date Time Temp Pulse Resp B/P Pulse Ox O2 Delivery O2 Flow Rate FiO2 08/06/16 15:06 98.5 100 17 144/63 100 Nasal Cannula 2.0 08/06/16 14:00 94 20 105/52 100 Nasal Cannula 3 08/06/16 11:00 104 22 112/56 100 Nasal Cannula 3 08/06/16 07:37 93 19 106/56 100 Nasal Cannula 08/06/16 05:04 80 18 97/78 98 Nasal Cannula 2 08/06/16 02:30 80 18 121/78 98 Nasal Cannula 3 08/06/16 00:54 98 Nasal Cannula 2 08/06/16 00:54 101 20 107/55 99 Nasal Cannula 2 08/06/16 00:54 98 Nasal Cannula 08/06/16 00:32 97.9 109 22 203/134 98 Result Diagram: 08/06/16 0050 08/06/16 0050 Imaging Last Impressions Chest X-Ray 08/06/16 0048 Signed Impressions: Service Date/Time: July 01:06 - CONCLUSION: Right basilar atelectasis versus pneumonia The findings are improved when compared with the prior exam. Brendan Merino MD Objective Remarks GENERAL: Chronically ill-appearing female. In no acute distress. SKIN: Warm and dry. No lesions noted. HEENT: Normocephalic. Pupils equal and round. Mucous membranes pink and moist. CARDIOVASCULAR: Slightly tachycardic rate and regular rhythm. No murmur appreciated. RESPIRATORY: No accessory muscle use. Clear to auscultation. Breath sounds equal bilaterally. GASTROINTESTINAL: Abdomen soft, non-tender, nondistended. Bowel sounds x4. PEG tube in place. MUSCULOSKELETAL: No obvious deformities. No clubbing or cyanosis. No edema. NEUROLOGICAL: Awake and alert. No focal neurological deficits. Moves upper and lower extremities spontaneously. Hoarse speech. PSYCHIATRIC: Appropriate mood and affect; insight and judgment normal. A/P Problem List: (1) Breast CA ICD Code: C50.919 Status: Acute (2) Respiratory distress ICD Code: R06.00 Status: Acute (3) Hospice care patient ICD Code: Z51.5 Status: Acute (4) DNR (do not resuscitate) ICD Code: Z66 Status: Acute Assessment and Plan 61 year old DNR female on Hospice with a PMH of Metastatic Breast CA, Anxiety and HTN was brought to the ER by her secondary to progressive SOB Metastatic Breast CA: previously on Chemo however progressive disease despite treatment, currently under Hospice. Following w/ Dr. Lama as outpatient. Respiratory Distress: c/o SOB and respiratory distress w/ increased secretions. Afebrile, no leukocytosis. CXR improved from previous. Nebs as needed. Guaifenesin with codeine for secretions. Hospice: currently under the care of Hospice w/ [facility], hospice informed, making arrangements for when pt to be discharged home. Pt and wish to continue Hospice care. Ativan/Morphine prn for Comfort Measures. No need to repeat labs. CODE STATUS DNR DVT Prophylaxis: Hospice/Comfort Measures. Discharge Planning Discussed with Dr. Garcia and RN. Discharge with hospice. Vini Dhillon Aug 06, 2016 3:59 pm Jose Guadalupe Garcia DO Aug 06, 2016 6:16 pm
[2016-08-06] MEDS ORDERED: GUAI100S5 G-TUBE (16:12)
[2016-08-06] MEDS ORDERED: guaiFENesin/DEXTROMETHORPHAN 200 MG/20 MG/10 ML CUP TUBE ONE (17:00)
[2016-08-06] MEDS ORDERED: guaiFENesin/CODEINE SYRUP 200 MG/20 MG/10 ML CUP G-TUBE PRN (21:00)
[2016-08-06] MEDS ORDERED: guaiFENesin/DEXTROMETHORPHAN 200 MG/20 MG/10 ML CUP TUBE PRN (23:00)
== END 2016-08-06 20:35 | disposition home or self-care (01) ==
LOC: NEPE 00:24 → NEDA 04:09 → NEDH 10:43 → NEDA 15:15
PROVIDERS: ADMIT Hospitalist; ATTEND Hospitalist
DX: C50.919 Malignant neoplasm of unspecified site of unspecified female breast (principal); C79.51 Secondary malignant neoplasm of bone; C77.9 Secondary and unspecified malignant neoplasm of lymph node, unspecified; C78.2 Secondary malignant neoplasm of pleura; R06.00 Dyspnea, unspecified; I10 Essential (primary) hypertension; R94.31 Abnormal electrocardiogram [ECG] [EKG]; E78.00 Pure hypercholesterolemia, unspecified; R82.79 Other abnormal findings on microbiological examination of urine; Z51.5 Encounter for palliative care; Z66 Do not resuscitate; Z90.11 Acquired absence of right breast and nipple
CPT/HCPCS: 71020; 80053; 81001; 82550; 84484; 85025; 87086; 93005; 99284; G0378